=== PATIENT | female | born 1945 | race Caucasian/White ===

== ENCOUNTER 2018-06-03 15:21 | Inpatient (IN) ==
[2018-06-03] MEDS ORDERED: Gadobutrol PF 7.5 MMOL/7.5 ML Vial (for RAD) IV.SIG ONE (15:22)
[2018-06-03] MEDS ORDERED: Sod Chloride 0.9% Inj 1,000 ML IV.SIG SCH ×2 (16:00→17:30)
--- NOTE | 2018-06-03 16:21 | XR ---
EXAM DATE: 06/03/2018 4:15 PM EST AGE/SEX: 73 years / Female INDICATIONS: Left hip pain post fall from bed. CLINICAL DATA: This is the patient's initial encounter. Patient reports that signs and symptoms have been present for 1 day and indicates a pain score of 10/10. MEDICAL/SURGICAL HISTORY: None. None. COMPARISON: No prior exams available for comparison. FINDINGS: Bony structures are intact and in normal alignment. Joints are intact without dislocation or signifi cant arthropathy. Osseous density is normal. Soft tissues are unremarkable. No radiopaque foreign bodies seen. CONCLUSION: No acute fracture or joint dislocation. Electronically signed by: Ja Becerra MD Board Certified Radiologist 06/03/2018 4:20 PM EST
[2018-06-03 16:52] LABS: Baso % (Auto) 0.2 % (0.0-2.0); Eos # (Auto) 0.3 th/mm3 (0.0-0.4); Eos % (Auto) 4.5 % (0.0-4.0); Hematocrit 30.5 % (35.0-46.0); Hemoglobin 10.8 gm/dL (11.6-15.3); Lymph # (Auto) 0.9 th/mm3 (1.0-4.8); Lymph % (Auto) 14.6 % (9.0-44.0); Mean Corpuscular HGB Conc 35.6 % (32.0-36.0); Mean Corpuscular Hemoglobin 32.6 pg (27.0-34.0); Mean Corpuscular Volume 91.6 fL (80.0-100.0); Mean Platelet Volume 8.6 fL (7.0-11.0); Mono # (Auto) 0.3 th/mm3 (0.0-0.9); Mono % (Auto) 4.9 % (0.0-8.0); Neut # (Auto) 4.5 th/mm3 (1.8-7.7); Neut % (Auto) 75.8 % (16.0-70.0); Platelet Count 136 th/mm3 (150-450); Red Blood Count 3.33 mil/mm3 (4.00-5.30); Red Cell Distribution Width 18.8 % (11.6-17.2); White Blood Count 5.9 th/mm3 (4.0-11.0)
[2018-06-03 17:17] LABS: Albumin 3.5 g/dL (3.4-5.0); Anion Gap 10 meq/L (5-15); Aspartate Aminotransferase 20 U/L (15-37); Blood Urea Nitrogen 17 mg/dL (7-18); Calcium 8.9 mg/dL (8.5-10.1); Chloride 100 meq/L (98-107); Glomerular Filtration Rate 41 mL/min (>89); Glucose,Random 112 mg/dL (74-106); Potassium 3.4 meq/L (3.5-5.1); Sodium 136 meq/L (136-145)
--- NOTE | 2018-06-03 17:18 | CT ---
EXAM DATE: 06/03/2018 5:11 PM EST AGE/SEX: 73 years / Female INDICATIONS: Multiple falls CLINICAL DATA: This is the patient's initial encounter. Patient reports that signs and symptoms have been present for 1 day and indicates a pain score of 4/10. MEDICAL/SURGICAL HISTORY: Hypertension. Carcinoma, breast. Carcinoma, bone. stomach cancer None . RADIATION DOSE: 56.35 CTDI (mGy) COMPARISON: No prior exams available for comparison. TECHNIQUE: CT of the head without contrast. Using automated exposure control and adjustment of the mA and/or kV according to patient size, radiation dose was kept as low as reasonably achievable to ob tain optimal diagnostic quality images. DICOM format image data is available electronically for revi ew and comparison. FINDINGS: Cerebrum: The ventricles are normal for age. There is bilateral cortical atrophy. No evidence of mid line shift, mass lesion, hemorrhage or acute infarction. No extraaxial fluid collections are seen. T here is a focal area of decreased density high along the right cerebral vertex measuring approximatel y 2 cm. This could be an old infarct. There are no prior studies for comparison. Chronic bilateral wh ite matter changes are demonstrated. Posterior Fossa: The cerebellum and brainstem are intact. The 4th ventricle is midline. The cerebe llopontine angle is unremarkable. Extracranial: The visualized portion of the orbits is intact. Skull: The calvaria is intact. No evidence of skull fracture. There are some scattered areas of scl erosis characteristic for bony metastatic disease. CONCLUSION: 1. No focal or acute intracranial hemorrhage. 2. Bilateral cortical atrophy and chronic white matter changes. 3. 2 cm area of low density high along the right cerebral vertex. Given patient's history of breast carcinoma with bony metastatic disease, a metastatic deposit is a possibility versus subacute infarc t. Therefore, recommend MRI of the brain with and without contrast for further evaluation. 4. Bony metastatic disease. . Electronically signed by: Ja Becerra MD Board Certified Radiologist 06/03/2018 5:16 PM EST
[2018-06-03 17:19] LABS: Alanine Aminotransferase 14 U/L (10-53)
[2018-06-03 17:20] LABS: Alkaline Phosphatase 106 U/L (45-117); Total Protein 6.9 g/dL (6.4-8.2)
--- NOTE | 2018-06-03 18:19 | ED ---
HPI General Chief Complaint: Fall Stated Complaint: fall Time Seen by Provider: 06/03/18 15:30 History of Present Illness HPI Narrative: This is a 73-year-old female with history of metastatic breast cancer to the bone, who presents today with complaints of multiple falls. Patient apparently has been having multiple falls over the last several days to weeks. She was recently started on a new chemo therapy drug and replaced the symptoms to when she started this medication. Patient states she was seen at a hospital yesterday where they checked a urine specimen and a fingerstick. She states that they did not do any blood work. She cannot recall which hospital it was. She is a poor historian and cannot tell me much other than she is receiving radiation oncology as well as IV blood oncology. She denies any headache. She does have some bruising to her left lateral neck and shoulder from a fall several days ago. There are no other complaints at the time of examination. Related Data Home Medications Medication Instructions Recorded Confirmed lorazepam [Ativan] 0.5 mg PO DAILY 03/20/18 06/03/18 simvastatin 40 mg PO QPM 03/20/18 06/03/18 abemaciclib [Verzenio] 150 mg PO BID 05/30/18 06/03/18 metoprolol tartrate 25 mg PO DAILY 05/30/18 06/03/18 letrozole 2.5 mg PO DAILY 06/03/18 06/03/18 Previous Rx's Medication Instructions Recorded aspirin 325 mg PO DAILY #30 tab 06/10/18 atorvastatin 40 mg PO QPM #30 tab 06/10/18 lorazepam 0.5 mg PO PRN #3 tab 06/10/18 Allergies Allergy/AdvReac Type Severity Reaction Status Date / Time No Known Allergies Allergy Verified 06/03/18 15:35 Review of Systems ROS: all other systems reviewed are negative Constitutional Reports system reviewed and no additional complaints, except as docu Eyes Reports system reviewed and no additional complaints, except as docu ENT Reports system reviewed and no additional complaints, except as docu Cardiovascular Reports system reviewed and no additional complaints, except as docu, Denies chest pain and Denies palpitations Respiratory Denies chest congestion, Denies cough and Denies dyspnea Gastrointestinal Denies abdominal pain, Denies nausea and Denies vomiting Genitourinary Reports system reviewed and no additional complaints, except as docu Musculoskeletal Reports back pain (Chronic with bony metastatic lesions) and Reports other ( Left hip pain from fall today.) Neurologic Denies confusion, Reports dizziness, Reports frequent falls, Denies headache(s) , Denies lack of coordination, Denies focal weakness, Denies paresthesias and Denies weakness PMFSH Family History Family History Father Diabetes mellitus Social History Social History Substance History: No History of Abuse Second Hand Smoke Exposure: No Smoking Status: Former smoker Tobacco Type: Cigarettes How Often Do You Have a Drink Containing Alcohol: Never Immunization History Tetanus Immunization: Unsure Exam Narrative Exam Narrative: GENERAL: Well-developed well-nourished female in no acute respiratory distress. SKIN: Focused skin assessment warm/dry. HEAD: Atraumatic. Normocephalic. EYES: No scleral icterus. No injection or drainage. ENT: No nasal bleeding or discharge. Mucous membranes pink and slightly dry. NECK: Trachea midline. Supple. There is a bruise on her left lateral neck. She relates this was from a fall several days ago. CARDIOVASCULAR: Regular rate and rhythm. No murmur appreciated. RESPIRATORY: No accessory muscle use. Clear to auscultation. Breath sounds equal bilaterally. GASTROINTESTINAL: Abdomen soft, non-tender, nondistended. Hepatic and splenic margins not palpable. MUSCULOSKELETAL: No obvious deformities. Bruising to the left shoulder and left lateral neck. Patient also has tenderness in her left lateral hip. She is able to flex her hip without difficulty. There is no pain with rocking. NEUROLOGICAL: Awake and alert. No obvious cranial nerve deficits. Motor grossly within normal limits. Normal speech. Course Initial Documented Vital Signs Temperature 98.1 F 06/03/18 15:27 Pulse Rate 87 06/03/18 15:27 Respiratory Rate 22 06/03/18 15:27 Blood Pressure 130/58 L 06/03/18 15:27 Pulse Oximetry 100 06/03/18 15:27 Last Documented Vital Signs Temperature 98.5 F 06/10/18 19:00 Pulse Rate 66 06/10/18 23:00 Respiratory Rate 20 06/10/18 23:00 Blood Pressure 160/73 H 06/10/18 19:00 Pulse Oximetry 96 06/10/18 20:00 Sign Out Sign Out Data: Patient Sign Out occurred on 06/03/18 at 19:16. Patient's care was discussed, and care was transferred from Tunde Pena MD to Nikky Sales. Sign Out Comment: 73 old female with history of metastatic breast cancer to the bone, presents here with multiple falls. Patient has a suspicious lesion on her head CT. An MRI with and without contrast was ordered to rule out metastatic lesion. Case was signed out to Dr. Sales. I anticipate the patient will be admitted. There is a high probability that this is a metastatic lesion. Last updated by Tunde Pena MD at 06/03/18 19:15 Post-Handoff Eval: 73-year-old female came to the emergency room with history of frequent falls in past couple days. Patient was seen by the previous ER physician. Please refer to his history and physical for further details. In the workup the CAT scan showed a suspicious lesion in the brain. An MRI was requested by the radiologist. Patient is getting the MRI done currently and awaiting for the results. Dr. Pena strongly felt that patient should be admitted because of her debilitating condition and frequent falls. I discussed this with the daughter as well as the patient and they agree. Patient is currently on chemotherapy under Dr. Schmitz's supervision. Patient thinks that the medicine is not helping her. Case was discussed with the hospitalist for admission. 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 The patient did appear to be volume depleted and was given IV fluid times [address] scan of the brain showed questionable infarct versus metastatic lesion. MRI is pending at this time. The patient will be signed out to the physician replacement at change of shift. I anticipate the patient will be needed to be admitted. Medical Screen Exam Complete: Yes Emergency Medical Condition: Yes Differential Diagnosis Differential Diagnosis: Dehydration versus anemia versus hip fracture versus intracranial injury Lab Data Result diagrams: 06/09/18 04:28 06/09/18 04:28 Lab Results 06/03/18 06/03/18 06/03/18 Range/Units 16:19 16:19 23:59 WBC 5.9 (4.0-11.0) th/mm3 RBC 3.33 L (4.00-5.30) mil/mm3 Hgb 10.8 L (11.6-15.3) gm/dL Hct 30.5 L (35.0-46.0) % MCV 91.6 (80.0-100.0) fL MCH 32.6 (27.0-34.0) pg MCHC 35.6 (32.0-36.0) % RDW 18.8 H (11.6-17.2) % Plt Count 136 L (150-450) th/mm3 MPV 8.6 (7.0-11.0) fL Prelim Diff (Auto) Neut % (Auto) 75.8 H (16.0-70.0) % Lymph % (Auto) 14.6 (9.0-44.0) % [place] % (Auto) 4.9 (0.0-8.0) % Eos % (Auto) 4.5 H (0.0-4.0) % Baso % (Auto) 0.2 (0.0-2.0) % Neut # (Auto) 4.5 (1.8-7.7) th/mm3 Lymph # (Auto) 0.9 L (1.0-4.8) th/mm3 [place] # (Auto) 0.3 (0.0-0.9) th/mm3 Eos # (Auto) 0.3 (0.0-0.4) th/mm3 Baso # (Auto) 0.0 (0.0-0.2) th/mm3 WBC Differential . Diff Scan Differential Comment Auto diff final Platelet Estimate (Normal) Platelet Morphology (Normal) Ovalocytes (None) ESR (0-30) mm/hr PT (9.8-11.6) sec INR Ratio Sodium 136 (136-145) meq/L Potassium 3.4 L (3.5-5.1) meq/L Chloride 100 (98-107) meq/L Carbon Dioxide 26.0 (21.0-32.0) meq/L Anion Gap 10 (5-15) meq/L BUN 17 (7-18) mg/dL Creatinine 1.28 H (0.50-1.00) mg/dL Estimated GFR 41 L (>89) mL/min POC Glucose 100 (68-110) mg/dl Random Glucose 112 H (74-106) mg/dL Hemoglobin A1c (4.3-6.0) % Calcium 8.9 (8.5-10.1) mg/dL Phosphorus (2.5-4.9) mg/dL Magnesium (1.5-2.5) mg/dL Total Bilirubin 0.5 (0.2-1.0) mg/dL AST 20 (15-37) U/L ALT 14 (10-53) U/L Alkaline Phosphatase 106 (45-117) U/L Total Creatine Kinase (26-192) U/L Troponin I (0.02-0.05) ng/mL Total Protein 6.9 (6.4-8.2) g/dL Albumin 3.5 (3.4-5.0) g/dL Triglycerides (42-150) mg/dL Cholesterol (120-200) mg/dL LDL Cholesterol, Calc (0-99) mg/dL HDL Cholesterol (40.0-60.0) mg/dL Cholesterol/HDL Ratio Ratio Vitamin B12 (193-986) pg/mL TSH (0.358-3.740) uIU/mL Free T4 (0.76-1.46) ng/dL Blood Type Blood Type Recheck Antibody Screen 06/04/18 06/04/18 06/04/18 Range/Units 06:38 06:38 06:38 WBC (4.0-11.0) th/mm3 RBC (4.00-5.30) mil/mm3 Hgb (11.6-15.3) gm/dL Hct (35.0-46.0) % MCV (80.0-100.0) fL MCH (27.0-34.0) pg MCHC (32.0-36.0) % RDW (11.6-17.2) % Plt Count (150-450) th/mm3 MPV (7.0-11.0) fL Prelim Diff (Auto) Neut % (Auto) (16.0-70.0) % Lymph % (Auto) (9.0-44.0) % [place] % (Auto) (0.0-8.0) % Eos % (Auto) (0.0-4.0) % Baso % (Auto) (0.0-2.0) % Neut # (Auto) (1.8-7.7) th/mm3 Lymph # (Auto) (1.0-4.8) th/mm3 [place] # (Auto) (0.0-0.9) th/mm3 Eos # (Auto) (0.0-0.4) th/mm3 Baso # (Auto) (0.0-0.2) th/mm3 WBC Differential Diff Scan Differential Comment Platelet Estimate (Normal) Platelet Morphology (Normal) Ovalocytes (None) ESR (0-30) mm/hr PT (9.8-11.6) sec INR Ratio Sodium 139 (136-145) meq/L Potassium 4.0 (3.5-5.1) meq/L Chloride 107 (98-107) meq/L Carbon Dioxide 24.4 (21.0-32.0) meq/L Anion Gap 8 (5-15) meq/L BUN 11 (7-18) mg/dL Creatinine 0.90 (0.50-1.00) mg/dL Estimated GFR 61 L (>89) mL/min POC Glucose (68-110) mg/dl Random Glucose 90 (74-106) mg/dL Hemoglobin A1c 5.4 (4.3-6.0) % Calcium 8.4 L (8.5-10.1) mg/dL Phosphorus (2.5-4.9) mg/dL Magnesium (1.5-2.5) mg/dL Total Bilirubin (0.2-1.0) mg/dL AST (15-37) U/L ALT (10-53) U/L Alkaline Phosphatase (45-117) U/L Total Creatine Kinase (26-192) U/L Troponin I (0.02-0.05) ng/mL Total Protein (6.4-8.2) g/dL Albumin (3.4-5.0) g/dL Triglycerides 71 (42-150) mg/dL Cholesterol 140 (120-200) mg/dL LDL Cholesterol, Calc 64 (0-99) mg/dL HDL Cholesterol 62.2 H (40.0-60.0) mg/dL Cholesterol/HDL Ratio 2.25 Ratio Vitamin B12 167 L (193-986) pg/mL TSH 0.322 L (0.358-3.740) uIU/mL Free T4 1.01 (0.76-1.46) ng/dL Blood Type Blood Type Recheck Antibody Screen 06/04/18 06/05/18 06/07/18 Range/Units 09:05 05:47 12:07 WBC (4.0-11.0) th/mm3 RBC (4.00-5.30) mil/mm3 Hgb (11.6-15.3) gm/dL Hct (35.0-46.0) % MCV (80.0-100.0) fL MCH (27.0-34.0) pg MCHC (32.0-36.0) % RDW (11.6-17.2) % Plt Count (150-450) th/mm3 MPV (7.0-11.0) fL Prelim Diff (Auto) Neut % (Auto) (16.0-70.0) % Lymph % (Auto) (9.0-44.0) % [place] % (Auto) (0.0-8.0) % Eos % (Auto) (0.0-4.0) % Baso % (Auto) (0.0-2.0) % Neut # (Auto) (1.8-7.7) th/mm3 Lymph # (Auto) (1.0-4.8) th/mm3 [place] # (Auto) (0.0-0.9) th/mm3 Eos # (Auto) (0.0-0.4) th/mm3 Baso # (Auto) (0.0-0.2) th/mm3 WBC Differential Diff Scan Differential Comment Platelet Estimate (Normal) Platelet Morphology (Normal) Ovalocytes (None) ESR 45 H (0-30) mm/hr PT (9.8-11.6) sec INR Ratio Sodium (136-145) meq/L Potassium (3.5-5.1) meq/L Chloride (98-107) meq/L Carbon Dioxide (21.0-32.0) meq/L Anion Gap (5-15) meq/L BUN (7-18) mg/dL Creatinine (0.50-1.00) mg/dL Estimated GFR (>89) mL/min POC Glucose (68-110) mg/dl Random Glucose (74-106) mg/dL Hemoglobin A1c (4.3-6.0) % Calcium (8.5-10.1) mg/dL Phosphorus (2.5-4.9) mg/dL Magnesium (1.5-2.5) mg/dL Total Bilirubin (0.2-1.0) mg/dL AST (15-37) U/L ALT (10-53) U/L Alkaline Phosphatase (45-117) U/L Total Creatine Kinase 107 (26-192) U/L Troponin I Less than 0.02 L (0.02-0.05) ng/mL Total Protein (6.4-8.2) g/dL Albumin (3.4-5.0) g/dL Triglycerides (42-150) mg/dL Cholesterol (120-200) mg/dL LDL Cholesterol, Calc (0-99) mg/dL HDL Cholesterol (40.0-60.0) mg/dL Cholesterol/HDL Ratio Ratio Vitamin B12 (193-986) pg/mL TSH (0.358-3.740) uIU/mL Free T4 (0.76-1.46) ng/dL Blood Type A Positive Blood Type Recheck Required Antibody Screen Negative 06/08/18 06/08/18 06/08/18 Range/Units 03:00 03:00 03:00 WBC 3.6 L (4.0-11.0) th/mm3 RBC 3.05 L (4.00-5.30) mil/mm3 Hgb 9.6 L (11.6-15.3) gm/dL Hct 27.6 L (35.0-46.0) % MCV 90.7 (80.0-100.0) fL MCH 31.6 (27.0-34.0) pg MCHC 34.9 (32.0-36.0) % RDW 18.5 H (11.6-17.2) % Plt Count 136 L (150-450) th/mm3 MPV 7.9 (7.0-11.0) fL Prelim Diff (Auto) Neut % (Auto) 63.4 (16.0-70.0) % Lymph % (Auto) 21.4 (9.0-44.0) % [place] % (Auto) 8.2 H (0.0-8.0) % Eos % (Auto) 5.7 H (0.0-4.0) % Baso % (Auto) 1.3 (0.0-2.0) % Neut # (Auto) 2.3 (1.8-7.7) th/mm3 Lymph # (Auto) 0.8 L (1.0-4.8) th/mm3 [place] # (Auto) 0.3 (0.0-0.9) th/mm3 Eos # (Auto) 0.2 (0.0-0.4) th/mm3 Baso # (Auto) 0.0 (0.0-0.2) th/mm3 WBC Differential . Diff Scan Differential Comment Auto diff final Platelet Estimate (Normal) Platelet Morphology (Normal) Ovalocytes (None) ESR (0-30) mm/hr PT 10.3 (9.8-11.6) sec INR 1.0 Ratio Sodium 139 (136-145) meq/L Potassium 3.2 L (3.5-5.1) meq/L Chloride 104 (98-107) meq/L Carbon Dioxide 28.1 (21.0-32.0) meq/L Anion Gap 7 (5-15) meq/L BUN 6 L (7-18) mg/dL Creatinine 0.92 (0.50-1.00) mg/dL Estimated GFR 60 L (>89) mL/min POC Glucose (68-110) mg/dl Random Glucose 89 (74-106) mg/dL Hemoglobin A1c (4.3-6.0) % Calcium 8.5 (8.5-10.1) mg/dL Phosphorus (2.5-4.9) mg/dL Magnesium (1.5-2.5) mg/dL Total Bilirubin 0.5 (0.2-1.0) mg/dL AST 14 L (15-37) U/L ALT 12 (10-53) U/L Alkaline Phosphatase 97 (45-117) U/L Total Creatine Kinase (26-192) U/L Troponin I (0.02-0.05) ng/mL Total Protein 6.4 (6.4-8.2) g/dL Albumin 3.2 L (3.4-5.0) g/dL Triglycerides (42-150) mg/dL Cholesterol (120-200) mg/dL LDL Cholesterol, Calc (0-99) mg/dL HDL Cholesterol (40.0-60.0) mg/dL Cholesterol/HDL Ratio Ratio Vitamin B12 (193-986) pg/mL TSH (0.358-3.740) uIU/mL Free T4 (0.76-1.46) ng/dL Blood Type Blood Type Recheck Antibody Screen 06/08/18 06/09/18 06/09/18 Range/Units 11:46 04:28 04:28 WBC 4.2 (4.0-11.0) th/mm3 RBC 2.50 L (4.00-5.30) mil/mm3 Hgb 8.2 L (11.6-15.3) gm/dL Hct 22.5 L (35.0-46.0) % MCV 90.1 (80.0-100.0) fL MCH 32.7 (27.0-34.0) pg MCHC 36.3 H (32.0-36.0) % RDW 18.9 H (11.6-17.2) % Plt Count 106 L (150-450) th/mm3 MPV 7.9 (7.0-11.0) fL Prelim Diff (Auto) Slide review pending Neut % (Auto) 78.4 H (16.0-70.0) % Lymph % (Auto) 13.0 (9.0-44.0) % [place] % (Auto) 7.7 (0.0-8.0) % Eos % (Auto) 0.8 (0.0-4.0) % Baso % (Auto) 0.1 (0.0-2.0) % Neut # (Auto) 3.3 (1.8-7.7) th/mm3 Lymph # (Auto) 0.6 L (1.0-4.8) th/mm3 [place] # (Auto) 0.3 (0.0-0.9) th/mm3 Eos # (Auto) 0.0 (0.0-0.4) th/mm3 Baso # (Auto) 0.0 (0.0-0.2) th/mm3 WBC Differential . Diff Scan Auto diff confirmed Differential Comment . Platelet Estimate Low L (Normal) Platelet Morphology Normal (Normal) Ovalocytes 1+ H (None) ESR (0-30) mm/hr PT (9.8-11.6) sec INR Ratio Sodium 134 L (136-145) meq/L Potassium 4.1 D (3.5-5.1) meq/L Chloride 102 (98-107) meq/L Carbon Dioxide 24.7 (21.0-32.0) meq/L Anion Gap 7 (5-15) meq/L BUN 9 (7-18) mg/dL Creatinine 0.76 (0.50-1.00) mg/dL Estimated GFR 74 L (>89) mL/min POC Glucose 140 H (68-110) mg/dl Random Glucose 121 H (74-106) mg/dL Hemoglobin A1c (4.3-6.0) % Calcium 7.6 L D (8.5-10.1) mg/dL Phosphorus 2.8 (2.5-4.9) mg/dL Magnesium 2.2 (1.5-2.5) mg/dL Total Bilirubin (0.2-1.0) mg/dL AST (15-37) U/L ALT (10-53) U/L Alkaline Phosphatase (45-117) U/L Total Creatine Kinase (26-192) U/L Troponin I (0.02-0.05) ng/mL Total Protein (6.4-8.2) g/dL Albumin (3.4-5.0) g/dL Triglycerides (42-150) mg/dL Cholesterol (120-200) mg/dL LDL Cholesterol, Calc (0-99) mg/dL HDL Cholesterol (40.0-60.0) mg/dL Cholesterol/HDL Ratio Ratio Vitamin B12 (193-986) pg/mL TSH (0.358-3.740) uIU/mL Free T4 (0.76-1.46) ng/dL Blood Type Blood Type Recheck Antibody Screen Imaging Data Radiologist's impression: Carotid Doppler Study 06/03/18 00:00 CONCLUSION: 1. Right Internal Carotid Artery: Findings indicate near occlusion of the proximal internal carotid artery and possible complete occlusion of the mid and distal internal carotid artery. 2. Left Internal Carotid Artery: Findings indicate 50-69% stenosis. Head CT 06/03/18 15:49 CONCLUSION: 1. No focal or acute intracranial hemorrhage. 2. Bilateral cortical atrophy and chronic white matter changes. 3. 2 cm area of low density high along the right cerebral vertex. Given patient's history of breast carcinoma with bony metastatic disease, a metastatic deposit is a possibility versus subacute infarct. Therefore, recommend MRI of the brain with and without contrast for further evaluation. 4. Bony metastatic disease. . Hip X-Ray 06/03/18 15:49 CONCLUSION: No acute fracture or joint dislocation. Head MRI 06/03/18 17:31 CONCLUSION: 1. The area of abnormality on the recent CT scan correlates to an area of acute to subacute nonhemorrhagic infarction involving the right parietal lobe. 2. Small metastatic lesions involving the calvarium. 3. No MRI evidence to suggest metastatic disease to the brain parenchyma. Head CTA 06/04/18 00:00 CONCLUSION: 1. Unremarkable CTA of the brain. Neck CTA 06/04/18 00:00 CONCLUSION: 1. "String" sign is noted within the right proximal internal carotid artery indicating critical greater than 90% stenosis. Extensive calcified atherosclerotic plaque is also noted distal to the critical stenosis. 2. Greater than 70% stenosis involving the proximal left internal carotid artery secondary to extensive calcified atherosclerotic plaque formation. Cervical Spine MRI 06/04/18 07:52 CONCLUSION: Mild disc protrusions at multiple levels, none producing significant anatomic compromise at present. Lumbar Spine MRI 06/04/18 07:52 CONCLUSION: Mild disc disease in the lower lumbar spine. No significant anatomic compromise at present. Thoracic Spine MRI 06/04/18 07:52 CONCLUSION: 1. There is evidence of focal bony metastatic deposits in the body of T11 and T12. This correlates with patient's previous PET/CT of 02/02/2018. 2. No compression fracture injuries are demonstrated. 3. There are mild degenerative type changes also noted involving the thoracic spine. Head MRA 06/04/18 19:52 CONCLUSION: No significant stenosis or occlusion of the intracerebral arteries. Scattered mild stenoses are noted throughout the bilateral middle and posterior cerebral arteries. Discharge Plan Discharge Disposition Patient Disposition: ED Admit(ED Internal Use Only) Discharge Condition Condition: Stable Discharge Order Discharge Orders: Discharge Order (Routine); Ordered 06/10/18 Ordered By: Yovanny Cohen Vascular Surgery Clear for Discharge (Routine); Ordered 06/09/18 Ordered By: Pawan Alexis ED Use Only Admit Order (Routine); Ordered 06/03/18 Ordered By: Nikky Sales Physicians Team ED Provider: Nikky Sales Primary Care Provider: UNKNOWN, Attending Provider: Yovanny Cohen Other Providers: Chidi Clifton ; Tiana Guzman ; Anamika Krishnamurthy ; Joseph Ruiz ; Gaurav Escobar ; Edwin Crockett ; Bishnu,Yonny Status ED Status: Left Department Discharge Information Discharge Date/Time: 06/03/18 21:24
--- NOTE | 2018-06-03 19:29 | MR ---
EXAM DATE: 06/03/2018 7:20 PM EST AGE/SEX: 73 years / Female INDICATIONS: Metastatic disease. Frequent falling CLINICAL DATA: This is the patient's initial encounter. Patient reports that signs and symptoms have been present for 1 day and indicates a pain score of 0/10. MEDICAL/SURGICAL HISTORY: . Bone, Breast, Stomach Ca, HTN . Lumpectomy, Gallbladder, Cataracts COMPARISON: [facility] – [place], [place] HEAD W/O CONTRAST, 06/03/2018.. . TECHNIQUE: Multiplanar, multisequence examination of the brain was performed without and with 7.5 ml Gadavist (gadobutrol) contrast as a single exam dose. FINDINGS: Cerebrum: There is decreased attenuation involving the medial right parietal lobe high near the vert ex adjacent to the falx. This area correlates to area of decreased density on the recent CT. The gyri are edematous and there is restricted diffusion in this area. No abnormal enhancement appreciated. A trophy. The ventricles are normal for age. No evidence of midline shift, mass lesion, hemorrhage or acute infarction. No extraaxial fluid collections are seen. The pituitary gland and suprasellar cis tern are normal in configuration. White Matter: No significant signal abnormalities are seen in the white matter. Posterior Fossa: The cerebellum and brainstem are intact. The 4th ventricle is midline. The cerebel lopontine angle is unremarkable. The cerebellar tonsils are normal in position. Diffusion Imaging: A focal area of restricted diffusion with associated decrease signal on ADC map i nvolving the right parietal lobe as detailed above.. Extracranial: Metastatic lesions are seen involving the calvarium. The largest lesion involves the r ight frontal bone and measures 1.4 cm. The visualized portions of the orbits and paranasal sinuses ar e unremarkable. Post Contrast: No abnormal areas of parenchymal or dural enhancement. No evidence of blood-brain ba rrier breakdown. CONCLUSION: 1. The area of abnormality on the recent CT scan correlates to an area of acute to subacute nonhemor rhagic infarction involving the right parietal lobe. 2. Small metastatic lesions involving the calvarium. 3. No MRI evidence to suggest metastatic disease to the brain parenchyma. Electronically signed by: Capo Santos MD Board Certified Radiologist 06/03/2018 7:28 PM EST
[2018-06-03] MEDS ORDERED: Insulin NovoLOG Aspart Correctional Sugar Inj SQ PRN (19:47)
[2018-06-03] MEDS ORDERED: Dextrose 50% in Water 50 ML Vial IV.PUSH PRN (19:47)
--- NOTE | 2018-06-03 20:56 | P.HP ---
History of Present Illness Service: [facility] Primary Care Physician: UNKNOWN History of Present Illness: 73-year-old female with a past medical history significant for metastatic breast cancer currently undergoing chemotherapy and radiation, hypertension, hyperlipidemia and anxiety presents to the emergency department for the evaluation of multiple falls. The patient's daughter is bedside and states that her mother has been falling for approximately 5 days. When she falls she is unable to get up on her own. She has been having left lower extremity weakness since Friday however believes this is secondary to left buttock pain that she suffered from 1 of her falls. The patient has not been altered or confused in anyway, no facial droops. No focal neurologic deficits. No slurred speech. The patient denies any fevers or chills. No chest pain or short of. No abdominal pain. Positive nausea that is baseline secondary to chemotherapy. No emesis. Inpatient Certification: I certify that the inpatient services were ordered in accordance with Medicare regulations governing the order. This includes certification that hospital inpatient services are reasonable and necessary and in the case of services not specified as inpatient-only under 42 CFR 419.22(n), that they are appropriately provided as inpatient services in accordance to with the 2-midnight benchmark under 43 CFR 412.3(e) Estimated Total Length of Stay (Days): 5 Plans for Post Hospital Care: Not yet determined Review of Systems All other systems reviewed negative except as stated in HPI [facility] - History History Provided By: Patient - Medical History Medical History: Medical History (Last Reviewed 06/03/18 @ 20:47 by Kaylyn Ramirez MD) Anxiety Bone cancer Breast cancer [place] Hypercholesteremia Hypertension Stomach cancer - Surgical History Surgical History: Surgical History (Last Reviewed 06/03/18 @ 20:47 by Kaylyn Ramirez MD) H/O lumpectomy History of cholecystectomy - Family History Family History: Family History (Last Updated 06/03/18 @ 20:47 by Kaylyn Ramirez MD) Other Diabetes mellitus - Tobacco History Second Hand Smoke Exposure: No Smoking Status: Former smoker Tobacco Type: Cigarettes - Alcohol History How Often Do You Have a Drink Containing Alcohol: Never - Substance Use History Substance History: No History of Abuse - Travel History Recent Travel in the [place] Within the Last 8 Weeks: No Recent Travel Out of the Country Within the Last 8 Weeks: No - Immunization History Tetanus Immunization: Unsure Medications and Allergies Active Medications: Active Medications Aspirin (Aspirin) 325 mg PO DAILY [facility] Dextrose (D50w Vial) 50 ml IV.PUSH UNSCH PRN PRN Reason: per Hypoglycemic Protocol Glucagon (Glucagon Inj) 1 mg OTHER UNSCH PRN PRN Reason: per Hypoglycemic Protocol Insulin Aspart (Novolog Insulin Correctional Sugar Inj) 0 unit SQ ACHS PRN; Protocol PRN Reason: Per Protocol Allergies Allergy/AdvReac Type Severity Reaction Status Date / Time No Known Allergies Allergy Verified 06/03/18 15:35 Home Medications Medication Instructions Recorded Confirmed Type lorazepam [Ativan] 0.5 mg PO DAILY 03/20/18 06/03/18 History simvastatin 40 mg PO QPM 03/20/18 06/03/18 History abemaciclib [Verzenio] 150 mg PO BID 05/30/18 06/03/18 History metoprolol tartrate 25 mg PO DAILY 05/30/18 06/03/18 History letrozole 2.5 mg PO DAILY 06/03/18 06/03/18 History Exam Vital signs: Vital Signs 06/03/18 15:27 06/03/18 15:30 Temperature 98.1 F Pulse Rate 87 87 Respiratory Rate 22 22 Blood Pressure 130/58 L 130/58 L Pulse Oximetry 100 100 Intake & Output 06/03/18 06/03/18 06/04/18 06:59 18:59 06:59 Intake Total 1999 Balance 1999 Weight 77.111 kg Intake: IV 1999 NS Inj 1,000 ML @ 1000 mls/hr 1999 IV.SIG BOLUS TYLER Rx#:[id number] Narrative: Gen.: No acute distress Head: Normocephalic. Atraumatic. EENT: Pupils equal round and reactive to light. Nose without drainage. Airway intact. Throat without injection. Cardiovascular: Regular rate and rhythm. No murmurs, rubs or gallops. Respiratory: Lungs clear to auscultation bilaterally. No wheezes or rhonchi. Abdomen: Soft, nontender, nondistended. No peritoneal signs. Musculoskeletal: No gross deformities. No edema. Skin: No obvious rashes or erythema. Neuro: Cranial nerves II through XII intact. No facial droop. Alert and oriented x4. Normal speech. Strength 5/5 throughout except left lower extremity with 4/5 strength stemming from left buttock pain. Results - Labs CBC & Chem 7: 06/03/18 16:19 06/03/18 16:19 Labs: Laboratory Results - last 24 hr 06/03/18 06/03/18 16:19 16:19 WBC 5.9 RBC 3.33 L Hgb 10.8 L Hct 30.5 L MCV 91.6 MCH 32.6 MCHC 35.6 RDW 18.8 H Plt Count 136 L MPV 8.6 Neut % (Auto) 75.8 H Lymph % (Auto) 14.6 Snyder % (Auto) 4.9 Eos % (Auto) 4.5 H Baso % (Auto) 0.2 Neut # (Auto) 4.5 Lymph # (Auto) 0.9 L Snyder # (Auto) 0.3 Eos # (Auto) 0.3 Baso # (Auto) 0.0 WBC Differential . Differential Comment Auto diff final Sodium 136 Potassium 3.4 L Chloride 100 Carbon Dioxide 26.0 Anion Gap 10 BUN 17 Creatinine 1.28 H Estimated GFR 41 L Random Glucose 112 H Calcium 8.9 Total Bilirubin 0.5 AST 20 ALT 14 Alkaline Phosphatase 106 Total Protein 6.9 Albumin 3.5 - Imaging Impressions Head CT 06/03/18 15:49 CONCLUSION: 1. No focal or acute intracranial hemorrhage. 2. Bilateral cortical atrophy and chronic white matter changes. 3. 2 cm area of low density high along the right cerebral vertex. Given patient's history of breast carcinoma with bony metastatic disease, a metastatic deposit is a possibility versus subacute infarct. Therefore, recommend MRI of the brain with and without contrast for further evaluation. 4. Bony metastatic disease. . Hip X-Ray 06/03/18 15:49 CONCLUSION: No acute fracture or joint dislocation. Head MRI 06/03/18 17:31 CONCLUSION: 1. The area of abnormality on the recent CT scan correlates to an area of acute to subacute nonhemorrhagic infarction involving the right parietal lobe. 2. Small metastatic lesions involving the calvarium. 3. No MRI evidence to suggest metastatic disease to the brain parenchyma. Caprini VTE Risk Assessment Caprini VTE Risk Assessment: Moderate/High Risk (score >= 2) Caprini Risk Assessment Model: Point Value = 1 Point Value = 2 Point Value = 3 Point Value = 5 Age 41-60 Minor surgery BMI > 25 kg/m2 Swollen legs Varicose veins or History of unexplained or recurrent spontaneous Oral contraceptives or hormone replacement Sepsis (< 1 month) Serious lung disease, including pneumonia (< 1 month) Abnormal pulmonary function Acute myocardial infarction Congestive heart failure (< 1 month) History of inflammatory bowel disease Medical patient at bed rest Age 61-74 Arthroscopic surgery Major open surgery (> 45 min) Laparoscopic surgery (> 45 min) Malignancy Confined to bed (> 72 hours) Immobilizing plaster cast Central venous access Age >= 75 History of VTE Family history of VTE Factor V Leiden Prothrombin [id number] Lupus anticoagulant Anticardiolipin antibodies Elevated serum homocysteine Heparin-induced thrombocytopenia Other congenital or acquired thrombophilia Stroke (< 1 month) Elective arthroplasty Hip, pelvis, or leg fracture Acute spinal cord injury (< 1 month) Prophylaxis Regimen: Total Risk Factor Score Risk Level Prophylaxis Regimen 0-1 Low Early ambulation 2 Moderate Order ONE of the following: *Sequential Compression Device (SCD) *Heparin 5000 units SQ BID 3-4 Higher Order ONE of the following medications: *Heparin 5000 units SQ TID *Enoxaparin/Lovenox 40 mg SQ daily (WT < 150 kg, CrCl > 30 mL/min) *Enoxaparin/Lovenox 30 mg SQ daily (WT < 150 kg, CrCl > 10-29 mL/min) *Enoxaparin/Lovenox 30 mg SQ BID (WT < 150 kg, CrCl > 30 mL/min) AND/OR *Sequential Compression Device (SCD) 5 or more Highest Order ONE of the following medications: *Heparin 5000 units SQ TID (Preferred with Epidurals) *Enoxaparin/Lovenox 40 mg SQ daily (WT < 150 kg, CrCl > 30 mL/min) *Enoxaparin/Lovenox 30 mg SQ daily (WT < 150 kg, CrCl > 10-29 mL/min) *Enoxaparin/Lovenox 30 mg SQ BID (WT < 150 kg, CrCl > 30 mL/min) AND *Sequential Compression Device (SCD) Assessment and Plan - Plan Assessment/plan: 1. Acute CVA Patient with no focal neurologic deficits at this time, reports multiple falls that began on with left lower extremity weakness that began on Friday Head MRI shows an area of acute to subacute nonhemorrhagic infarction involving the right parietal lobe Neurology consulted, appreciate assistance Carotid ultrasound, MRA pending Echo pending 2. Metastatic breast cancer [facility] Patient's oncologist, Dr. Phillips consulted, appreciate assistance 3. Hypertension Holding home metoprolol for permissive hypertension 4. Hyperlipidemia Continue home statin 5. Anxiety Continue Ativan FEN NPO Electrolytes: Monitor and replete as needed, s/p K repletion Holding pharmacologic anticoagulation until cleared by neurology NS at 70 cc/hr
[2018-06-03] MEDS ORDERED: ABEMACICLIB 150 MG PO SCH (21:00)
--- NOTE | 2018-06-03 21:39 | US ---
EXAM DATE: 06/03/2018 9:30 PM EST AGE/SEX: 73 years / Female INDICATIONS: Cerebrovascular accident. CLINICAL DATA: This is the patient's initial encounter. Patient reports that signs and symptoms have been present for 1 day and indicates a pain score of 0/10. MEDICAL/SURGICAL HISTORY: Hypercholesterolemia. Hypertension. Anxiety. Bone cancer. Breast can cer. Cataract. Stomach cancer. Cholecystectomy. Lumpectomy. COMPARISON: [facility] [place], MR HEAD W & W/O CONTRAST, 06/03/2018. [facility] [place], CT HEAD W/O CONTRAST, 06/03/2018. . VELOCITY PARAMETERS: ICA/CCA Ratio: Right 5.0 (prox ICA) , Left 1.4 ICA: Right 416 (prox) cm/sec, Left 168 cm/sec CCA: Right 84 cm/sec, Left 111 cm/sec ECA: Right 376 cm/sec, Left 174 cm/sec Vertebral: Right 176 cm/sec antegrade, Left 93 cm/sec antegrade FINDINGS: Right Carotid: There is severe plaque formation in the region of the carotid bulb with some shadowing . There is an abnormal waveform in the proximal internal carotid artery with prominent negative veloc ity components during systole. No flow is documented in the mid or distal internal carotid artery.. Left Carotid: Moderate arteriosclerotic plaque is visualized. The waveforms are within normal limits . Other: None. CONCLUSION: 1. Right Internal Carotid Artery: Findings indicate near occlusion of the proximal internal carotid artery and possible complete occlusion of the mid and distal internal carotid artery. 2. Left Internal Carotid Artery: Findings indicate 50-69% stenosis. Electronically signed by: Capo Mari MD Board Certified Radiologist 06/03/2018 9:38 PM EST
[2018-06-03] MEDS: Sod Chloride 0.9% Inj 1,000 ML IV.CONT SCH (22:01)
[2018-06-04 07:19] LABS: Calcium 8.4 mg/dL (8.5-10.1); Carbon Dioxide 24.4 meq/L (21.0-32.0)
[2018-06-04 07:22] LABS: Chol/HDL Ratio 2.25 Ratio; HDL Cholesterol 62.2 mg/dL (40.0-60.0)
[2018-06-04] MEDS: LORazepam 0.5 MG Tablet PO SCH (08:16)
[2018-06-04] MEDS: Aspirin 325 MG Tablet PO SCH (08:16)
--- NOTE | 2018-06-04 08:16 | MB ---
cc: Chidi Sagastume MD DATE: 06/04/2018 HISTORY OF PRESENT ILLNESS: A 73-year-old woman, right-handed, with a history of hypertension, hypercholesterolemia, breast cancer about 3 years ago, evidently a met in the right hip, who has had a fall for the last 3 weeks. She denies any chest pain, palpitations, or headache. REVIEW OF SYSTEMS: She denies any history of diabetes; TX; stent; angioplasty; AFib; Coumadin; renal, hepatic or pulmonary disease; thyroid disease; lupus; ulcer; seizure; or stroke. SOCIAL HISTORY: She is not a smoker anymore, not a drinker, lives with her daughter. FAMILY HISTORY: Negative for cancer, seizure, or stroke according to the patient. MEDICATIONS AT HOME: Letrozole, simvastatin, metoprolol, Ativan 0.5 a day, Verzenio. She, as far as I can tell, does not take an aspirin a day. She is on 325 aspirin here. PHYSICAL EXAMINATION: VITAL SIGNS: Sinus rhythm, so far. Afebrile, 79, 97/51 to 120/73. NECK: There are no carotid bruits. HEART: Regular rate and rhythm. I did not detect a murmur. NEUROLOGIC: Pupils are equal. Discs cannot see well. Hearing was diminished bilaterally to finger rub. Visual hudson are full. Extraocular movements intact without nystagmus. Face is symmetric with normal sensation. Tongue was midline. No drift. Normal strength in upper and lower extremities bilaterally except the left lower extremity is weak about a 4-4+/5. Toe was upgoing and left, downgoing in the right. DTRs are trace throughout. Pinprick was intact in all 4 extremities and face bilaterally. There is no tapia sign. She is not ataxic on [id number]. She is a little bit ataxic on [id number] on the left, not on the right. She was alert and oriented to month and year but not the day of the week. A little bit disinhibited. DIAGNOSTIC DATA: MRI shows an acute right anterior cerebral artery in the posterior aspect of its territory. CBC essentially normal. Basic metabolic profile is normal. LFTs normal. LDL cholesterol normal. Hip x-ray negative. Carotid ultrasound near occlusion, possible complete occlusion of the right internal carotid artery, 50%-69% on the left. IMPRESSION: Right anterior cerebral artery infarct, probably from the carotid. We will check a CTA of the head and neck along with a history of cancer an MRI of the spine and echocardiogram. Continue on aspirin. Keep her blood pressure up and check a troponin. I will be following her with you in the hospital. Probably the carotid is the cause of the right anterior cerebral artery infarct. For now, we will keep her head of bed flat. IV hydration, but blood pressure up. MD NILO Harrison/nicolás , 07:55 AM , 08:02 AM
[2018-06-04] MEDS ORDERED: ABEMACICLIB PO SCH (09:00)
--- NOTE | 2018-06-04 09:58 | MR ---
EXAM DATE: 06/04/2018 9:52 AM EST AGE/SEX: 73 years / Female INDICATIONS: Frequent falls. CLINICAL DATA: This is the patient's subsequent encounter. Patient reports that signs and symptoms h ave been present for 2 days and indicates a pain score of 3/10. MEDICAL/SURGICAL HISTORY: Hypertension. Hypercholesterolemia. bone, stomach and breast cancer Cholecystectomy. lumpectomy COMPARISON: [facility] [place], MR HEAD W & W/O CONTRAST, 06/03/2018. [facility] [place], CT HEAD W/O CONTRAST, 06/03/2018. . TECHNIQUE: 3D [id number] MRA was performed. Source images, multiplanar STS MIP, and 3D volum e MIP reconstructions were reviewed. FINDINGS: There is excellent visualization of the major intracranial arteries out to the second-order branch ve ssels. There is no evidence for aneurysm, vessel truncation or significant stenosis, and no evidence for vascular malformation. Scattered mild stenoses are noted throughout the bilateral middle and pos terior cerebral arteries. The right A1 segment is small in caliber compared to the left. CONCLUSION: No significant stenosis or occlusion of the intracerebral arteries. Scattered mild stenoses are noted throughout the bilateral middle and posterior cerebral arteries. Electronically signed by: Gaurav Perez MD Board Certified Radiologist 06/04/2018 9:57 AM EST
[2018-06-04 09:59] LABS: Free T4 (Free Thyroxine) 1.01 ng/dL (0.76-1.46); Thyroid Stimulating Hormone 0.322 uIU/mL (0.358-3.740)
[2018-06-04] MEDS ORDERED: Gadobutrol PF 7.5 MMOL/7.5 ML Vial (for RAD) IV.SIG ONE (10:38)
--- NOTE | 2018-06-04 10:54 | MR ---
EXAM DATE: 06/04/2018 10:45 AM EST AGE/SEX: 73 years / Female INDICATIONS: . Frequent falls. CLINICAL DATA: This is the patient's subsequent encounter. Patient reports that signs and symptoms h ave been present for 2 days and indicates a pain score of 3/10. MEDICAL/SURGICAL HISTORY: Hypercholesterolemia. Hypertension. bone, stomach and breast cancer Cholecystectomy. lumpectomy COMPARISON: [facility] [place], MR THORACIC SPINE W & W/O CON, 06/04/2018. . TECHNIQUE: Multiplanar, multisequence MRI examination of the cervical spine was performed without an d with 7.5 ml Gadavist (gadobutrol) contrast as a single exam dose. FINDINGS: Vertebrae: Normal vertebral body height. Homogeneous marrow signal. Alignment: Normal. Cord: Normal configuration and signal. Post Fossa: The cerebellar tonsils are normal in position. Post Contrast: No abnormal areas of enhancement are seen. C2-C3: The thecal sac has a normal configuration. There is no evidence of disc herniation or spinal canal stenosis. The neural foramina are patent bilaterally. C3-C4: The thecal sac has a normal configuration. There is no evidence of disc herniation or spinal canal stenosis. The neural foramina are patent bilaterally. C4-C5: Mild broad slightly undulating right paracentral disc protrusion slightly indenting ventral t hecal sac. Canal and foramina are satisfactory. C5-C6: Broad undulating dorsal disc protrusion mildly indenting ventral thecal sac. Mild bilateral f oraminal narrowing. C6-C7: Broad mild right paracentral disc protrusion indenting thecal sac with moderate asymmetric ef facement of right lateral recess. Mild foraminal narrowing. C7-T1: No epidural impressions seen. CONCLUSION: Mild disc protrusions at multiple levels, none producing significant anatomic compromise at present. Electronically signed by: Pierre Olivo MD Board Certified Radiologist 06/04/2018 10:53 AM EST
--- NOTE | 2018-06-04 11:00 | MR ---
EXAM DATE: 06/04/2018 10:48 AM EST AGE/SEX: 73 years / Female INDICATIONS: . Frequent falls. CLINICAL DATA: This is the patient's subsequent encounter. Patient reports that signs and symptoms h ave been present for 2 days and indicates a pain score of 3/10. MEDICAL/SURGICAL HISTORY: Hypercholesterolemia. Hypertension. bone, stomach and breast cancer Cholecystectomy. lumpectomy COMPARISON: [facility], PET/CT TUMOR, 02/02/2018. . TECHNIQUE: Multiplanar, multisequence MRI of the thoracic spine was performed without and with 7.5 m l Gadavist (gadobutrol) contrast as a single exam dose. FINDINGS: Vertebrae: Normal vertebral body height. No compression fracture injuries are demonstrated. There ar e some mild degenerative changes throughout the thoracic spine. However, there is a focus of decrease d signal in the body of T11 and T12 which correlates with hypermetabolic sclerotic lesions seen on th e PET/CT from 02/02/2018. This would indicate focus of bony metastatic disease. The rest of the thorac ic vertebral bodies demonstrate normal signal. Alignment: Normal. Cord: Normal position and configuration. Post Contrast: There is some mild enhancement of the sclerotic lesion seen in the body of T11 and T1 2 characteristic of a focus of bony metastatic disease. T1-T2: The thecal sac has a normal diameter. No evidence of disc bulge or protrusion. T2-T3: The thecal sac has a normal diameter. No evidence of disc bulge or protrusion. T3-T4: The thecal sac has a normal diameter. No evidence of disc bulge or protrusion. T4-T5: The thecal sac has a normal diameter. No evidence of disc bulge or protrusion. T5-T6: The thecal sac has a normal diameter. No evidence of disc bulge or protrusion. T6-T7: The thecal sac has a normal diameter. No evidence of disc bulge or protrusion. T7-T8: The thecal sac has a normal diameter. No evidence of disc bulge or protrusion. T8-T9: The thecal sac has a normal diameter. No evidence of disc bulge or protrusion. T9-T10: The thecal sac has a normal diameter. No evidence of disc bulge or protrusion. T10-T11: The thecal sac has a normal diameter. No evidence of disc bulge or protrusion. T11-T12: The thecal sac has a normal diameter. No evidence of disc bulge or protrusion. T12-L1: The thecal sac has a normal diameter. No evidence of disc bulge or protrusion. CONCLUSION: 1. There is evidence of focal bony metastatic deposits in the body of T11 and T12. This correlates w ith patient's previous PET/CT of 02/02/2018. 2. No compression fracture injuries are demonstrated. 3. There are mild degenerative type changes also noted involving the thoracic spine. Electronically signed by: Ja Becerra MD Board Certified Radiologist 06/04/2018 10:58 AM EST
--- NOTE | 2018-06-04 11:01 | MR ---
EXAM DATE: 06/04/2018 10:41 AM EST AGE/SEX: 73 years / Female INDICATIONS: . Frequent falls. CLINICAL DATA: This is the patient's subsequent encounter. Patient reports that signs and symptoms h ave been present for 2 days and indicates a pain score of 3/10. MEDICAL/SURGICAL HISTORY: Hypercholesterolemia. Hypertension. bone, stomach and breast cancer Cholecystectomy. lumpectomy [place] [facility] [place] W & W/O CON, 06/04/2018. . TECHNIQUE: Multiplanar, multisequence MRI examination of the lumbar spine was performed without and with 7.5 ml Gadavist (gadobutrol) contrast as a single exam dose. FINDINGS: The most caudal-appearing lumbar vertebra is numbered as L5. Vertebra: Homogeneous signal. Normal alignment. Conus: Normal level and configuration. Post Contrast: No abnormal areas of contrast enhancement are seen. T12-L1: The thecal sac has a normal diameter. No evidence of disc bulge or protrusion. The neural foramina are patent bilaterally. L1-L2: The thecal sac has a normal diameter. No evidence of disc bulge or protrusion. The neural foramina are patent bilaterally. L2-L3: The thecal sac has a normal diameter. No evidence of disc bulge or protrusion. The neural foramina are patent bilaterally. L3-L4: Slight annular disc bulge. No significant protrusion, canal or foraminal stenosis. L4-L5: Slight annular disc bulge. Minimal broad superimposed dorsal disc protrusion. No significant canal or foraminal compromise. Mild bilateral posterior facet arthropathy. L5-S1: The thecal sac has a normal diameter. No evidence of disc bulge or protrusion. The neural foramina are patent bilaterally. CONCLUSION: Mild disc disease in the lower lumbar spine. No significant anatomic compromise at present. Electronically signed by: Pierre Olivo MD Board Certified Radiologist 06/04/2018 10:59 AM EST
--- NOTE | 2018-06-04 11:17 | P.PN ---
Subjective Interval history: Follow-up acute CVA/frequent falls June 04, 2018-patient seen and examined, denies any shortness of breath, chest pain or dizziness. Denies any weakness to any extremities Physical Exam Vital signs: Vital Signs 06/03/18 15:27 06/03/18 15:30 06/03/18 19:48 Temperature 98.1 F 98.0 F Pulse Rate 87 87 71 Respiratory Rate 22 22 18 Blood Pressure 130/58 L 130/58 L 130/78 Pulse Oximetry 100 100 97 06/03/18 21:37 06/03/18 21:48 06/03/18 23:48 Temperature 98.1 F 98 F Pulse Rate 76 85 79 Respiratory Rate 18 18 Blood Pressure 139/82 97/51 L Pulse Oximetry 98 99 06/04/18 00:11 06/04/18 03:48 06/04/18 07:48 Temperature 98.8 F 98.6 F Pulse Rate 77 81 85 Respiratory Rate 16 16 Blood Pressure 120/73 158/48 H Pulse Oximetry 97 99 Intake & Output 06/03/18 06/04/18 06/04/18 18:59 06:59 18:59 Intake Total 1999 Output Total 400 / 400 Balance 1999 -400 / -400 Weight 77.111 kg 75 kg Intake: IV 1999 NS Inj 1,000 ML @ 1000 mls/hr 1999 IV.SIG BOLUS TYLER Rx#:[id number] Output: Urine 400 / 400 Other: Date of Last Bowel Movement 06/01/18 Narrative: Gen.: No acute distress Head: Normocephalic. Atraumatic. EENT: Pupils equal round and reactive to light. Nose without drainage. Airway intact. Throat without injection. Cardiovascular: Regular rate and rhythm. No murmurs, rubs or gallops. Respiratory: Lungs clear to auscultation bilaterally. No wheezes or rhonchi. Abdomen: Soft, nontender, nondistended. No peritoneal signs. Musculoskeletal: No gross deformities. No edema. Skin: No obvious rashes or erythema. Neuro: Cranial nerves II through XII intact. No facial droop. Alert and oriented x4. Normal speech. Strength 5/5 throughout except left lower extremity with 4/5 strength stemming from left buttock pain. Results - Labs CBC & Chem 7: 06/03/18 16:19 06/04/18 06:38 Laboratory Results - last 24 hr 06/03/18 06/03/18 06/03/18 16:19 16:19 23:59 WBC 5.9 RBC 3.33 L Hgb 10.8 L Hct 30.5 L MCV 91.6 MCH 32.6 MCHC 35.6 RDW 18.8 H Plt Count 136 L MPV 8.6 Neut % (Auto) 75.8 H Lymph % (Auto) 14.6 [place] % (Auto) 4.9 Eos % (Auto) 4.5 H Baso % (Auto) 0.2 Neut # (Auto) 4.5 Lymph # (Auto) 0.9 L [place] # (Auto) 0.3 Eos # (Auto) 0.3 Baso # (Auto) 0.0 WBC Differential . Differential Comment Auto diff final ESR Sodium 136 Potassium 3.4 L Chloride 100 Carbon Dioxide 26.0 Anion Gap 10 BUN 17 Creatinine 1.28 H Estimated GFR 41 L POC Glucose 100 Random Glucose 112 H Calcium 8.9 Total Bilirubin 0.5 AST 20 ALT 14 Alkaline Phosphatase 106 Total Protein 6.9 Albumin 3.5 Triglycerides Cholesterol LDL Cholesterol, Calc HDL Cholesterol Cholesterol/HDL Ratio Vitamin B12 TSH Free T4 06/04/18 06/04/18 06/04/18 06:38 06:38 09:05 WBC RBC Hgb Hct MCV MCH MCHC RDW Plt Count MPV Neut % (Auto) Lymph % (Auto) [place] % (Auto) Eos % (Auto) Baso % (Auto) Neut # (Auto) Lymph # (Auto) [place] # (Auto) Eos # (Auto) Baso # (Auto) WBC Differential Differential Comment ESR 45 H Sodium 139 Potassium 4.0 Chloride 107 Carbon Dioxide 24.4 Anion Gap 8 BUN 11 Creatinine 0.90 Estimated GFR 61 L POC Glucose Random Glucose 90 Calcium 8.4 L Total Bilirubin AST ALT Alkaline Phosphatase Total Protein Albumin Triglycerides 71 Cholesterol 140 LDL Cholesterol, Calc 64 HDL Cholesterol 62.2 H Cholesterol/HDL Ratio 2.25 Vitamin B12 167 L TSH 0.322 L Free T4 1.01 - Imaging Impressions Carotid Doppler Study 06/03/18 00:00 CONCLUSION: 1. Right Internal Carotid Artery: Findings indicate near occlusion of the proximal internal carotid artery and possible complete occlusion of the mid and distal internal carotid artery. 2. Left Internal Carotid Artery: Findings indicate 50-69% stenosis. Head CT 06/03/18 15:49 CONCLUSION: 1. No focal or acute intracranial hemorrhage. 2. Bilateral cortical atrophy and chronic white matter changes. 3. 2 cm area of low density high along the right cerebral vertex. Given patient's history of breast carcinoma with bony metastatic disease, a metastatic deposit is a possibility versus subacute infarct. Therefore, recommend MRI of the brain with and without contrast for further evaluation. 4. Bony metastatic disease. . Hip X-Ray 06/03/18 15:49 CONCLUSION: No acute fracture or joint dislocation. Head MRI 06/03/18 17:31 CONCLUSION: 1. The area of abnormality on the recent CT scan correlates to an area of acute to subacute nonhemorrhagic infarction involving the right parietal lobe. 2. Small metastatic lesions involving the calvarium. 3. No MRI evidence to suggest metastatic disease to the brain parenchyma. Cervical Spine MRI 06/04/18 07:52 CONCLUSION: Mild disc protrusions at multiple levels, none producing significant anatomic compromise at present. Lumbar Spine MRI 06/04/18 07:52 CONCLUSION: Mild disc disease in the lower lumbar spine. No significant anatomic compromise at present. Thoracic Spine MRI 06/04/18 07:52 CONCLUSION: 1. There is evidence of focal bony metastatic deposits in the body of T11 and T12. This correlates with patient's previous PET/CT of 02/02/2018. 2. No compression fracture injuries are demonstrated. 3. There are mild degenerative type changes also noted involving the thoracic spine. Head MRA 06/04/18 19:52 CONCLUSION: No significant stenosis or occlusion of the intracerebral arteries. Scattered mild stenoses are noted throughout the bilateral middle and posterior cerebral arteries. Assessment and Plan - Plan 73-year-old female with Ischemic CVA Treatment per stroke protocol Brain MRI with finding of nonhemorrhagic acute to subacute infarction in right parietal lobe Neck CTA pending Appreciate input from neurology Continue permissive hypertension, aspirin, statin 2D echo, Holter monitoring pending PT/OT to treat and eval Rehabilitation medicine consultation pending Speech therapy pending for swallow eval Hypertension Allow for permissive hypertension History of metastasis breast cancer Oncology consultation pending Imaging studies review DVT prophylaxis: Bilateral SCDs
--- NOTE | 2018-06-04 11:50 | CT ---
EXAM DATE: 06/04/2018 11:45 AM EST AGE/SEX: 73 years / Female INDICATIONS: Atherosclerosis CLINICAL DATA: This is the patient's initial encounter. Patient reports that signs and symptoms have been present for 1 day and indicates a pain score of 0/10. MEDICAL/SURGICAL HISTORY: Carcinoma, breast. Hypertension. None. RADIATION DOSE: 27.31 CTDI (mGy) ; Combined studies COMPARISON: No prior exams available for comparison. TECHNIQUE: Volumetric scanning was performed using a multi-row detector CT scanner during bolus infu vanesa of 82 ml Omnipaque 350 (iohexol) nonionic water-soluble contrast as a cumulative dose for multi ple exams. The data was post processed with a variety of visualization algorithms including full vo lume maximum intensity projection, multi-planar sliding thin slab reformation, curved planar reformat ion, and surface rendering techniques. Using automated exposure control and adjustment of the mA and /or kV according to patient size, radiation dose was kept as low as reasonably achievable to obtain o ptimal diagnostic quality images. DICOM format image data is available electronically for review and comparison. FINDINGS: There is excellent visualization of the major intracranial arteries out to the second-order branch ve ssels. There is no evidence for aneurysm, vessel truncation or stenosis, and no evidence for vascula r malformation. The A1 segment on the right is hypoplastic but patent. CONCLUSION: 1. Unremarkable CTA of the brain. Electronically signed by: Ja Becerra MD Board Certified Radiologist 06/04/2018 11:49 AM EST
--- NOTE | 2018-06-04 12:37 | CT ---
EXAM DATE: 06/04/2018 12:21 PM EST AGE/SEX: 73 years / Female INDICATIONS: Atherosclerosis CLINICAL DATA: This is the patient's initial encounter. Patient reports that signs and symptoms have been present for 1 day and indicates a pain score of 0/10. MEDICAL/SURGICAL HISTORY: Carcinoma, breast. Hypertension. None. RADIATION DOSE: 27.31 CTDI (mGy) ; Combined studies COMPARISON: [facility], MRA HEAD W/O CONTRAST, 06/04/2018. . TECHNIQUE: Volumetric scanning was performed using a multirow detector CT scanner during bolus infus ion of 80 ml Omnipaque 350 (iohexol) nonionic water-soluble contrast as a cumulative dose for multip le exams. The data was postprocessed with a variety of visualization algorithms including full-volu me maximum intensity projection, multiplanar sliding thin-slab reformation, curved-planar reformation , and surface-rendering techniques. Using automated exposure control and adjustment of the mA and/or kV according to patient size, radiation dose was kept as low as reasonably achievable to obtain opti mal diagnostic quality images. DICOM format image data is available electronically for review and co mparison. FINDINGS: Aortic Arch: There is a three-vessel origin of the great vessels from the aorta. No evidence of ost ial narrowing Right Carotid: The common carotid artery is intact. The carotid bulb has a normal configuration wit hout ulceration or narrowing. A "string" sign is noted within the right proximal internal carotid art nilam indicating critical greater than 90% stenosis. Extensive calcified atherosclerotic plaque is also noted distal to the critical stenosis. The external carotid artery is intact. Left Carotid: The common carotid artery is intact. The carotid bulb has a normal configuration with out ulceration or narrowing. There is greater than 70% stenosis involving the proximal left internal carotid artery secondary to extensive calcified atherosclerotic plaque formation. The external caroti d artery is intact. Vertebrals: The left vertebral artery is dominant. No stenotic lesions are seen. Percent stenosis is calculated using the diameter of the stenotic region over the diameter of the nor mal distal internal carotid artery. CONCLUSION: 1. "String" sign is noted within the right proximal internal carotid artery indicating critical grea ter than 90% stenosis. Extensive calcified atherosclerotic plaque is also noted distal to the critica l stenosis. 2. Greater than 70% stenosis involving the proximal left internal carotid artery secondary to extens shawna calcified atherosclerotic plaque formation. Electronically signed by: Gaurav Perez MD Board Certified Radiologist 06/04/2018 12:36 PM EST
[2018-06-04] MEDS: Sod Chloride 0.9% Inj 1,000 ML IV.CONT SCH (12:45)
[2018-06-04] MEDS: Acetaminophen 325 MG Tablet PO PRN (14:04)
[2018-06-04 16:06] LABS: Hemoglobin A1c 5.4 % (4.3-6.0)
--- NOTE | 2018-06-04 16:40 | ECHRPT ---
Indication: CVA/TIA CONCLUSIONS Limited echocardiographic study with apical 5 chamber and subcostal short axis views not obtained. Normal left ventricular size. Wall thickness is measured at the upper limits of normal. The left ventricular systolic function is hyperdynamic with an estimated ejection fraction in the ra nge of 65- 70%. There is trace tricuspid valve regurgitation. BP: / HR: Rhythm: Sinus MEASUREMENTS (Male / Female) Normal Values Technical Quality:Fair 2D ECHO LV Diastolic Diameter PLAX 3.3 cm 4.2 - 5.9 / 3.9 - 5.3 cm LV Systolic Diameter PLAX 2.3 cm IVS Diastolic Thickness 1.0 cm 0.6 - 1.0 / 0.6 - 0.9 cm LVPW Diastolic Thickness 1.0 cm 0.6 - 1.0 / 0.6 - 0.9 cm LV Relative Wall Thickness 0.6 RV Internal Dim ED PLAX 1.7 cm LVOT Diameter 1.6 cm Aortic Root Diameter 2.6 cm LA Systolic Diameter LX 3.0 cm 3.0 - 4.0 / 2.7 - 3.8 cm M-MODE AV Cusp Separation MM 1.7 cm DOPPLER AV Peak Velocity 212.0 cm/s AV Peak Gradient 18.0 mmHg AV Mean Gradient 8.0 mmHg AV Velocity Time Integral 37.8 cm LVOT Peak Velocity 117.0 cm/s LVOT Peak Gradient 5.5 mmHg LVOT Velocity Time Integral 23.6 cm AV Area Cont Eq vti 1.3 cm AV Area Cont Eq pk 1.1 cm Mitral E Point Velocity 95.8 cm/s Mitral A Point Velocity 130.0 cm/s Mitral E to A Ratio 0.7 LV E' Lateral Velocity 7.4 cm/s Mitral E to LV E' Lateral Ratio 12.9 LV E' Septal Velocity 6.7 cm/s Mitral E to LV E' Septal Ratio 14.2 TR Peak Velocity 282.0 cm/s TR Peak Gradient 31.8 mmHg Right Atrial Pressure 10.0 mmHg Pulmonary Artery Systolic Pressu 41.8 mmHg Right Ventricular Systolic Press 41.8 mmHg PV Peak Velocity 38.3 cm/s PV Peak Gradient 0.6 mmHg FINDINGS LEFT VENTRICLE Normal left ventricular size. Wall thickness is measured at the upper limits of normal. The left ventricular systolic function is hyperdynamic with an estimated ejection fraction in the ra nge of 65- 70%. No regional wall motion abnormalities are present. RIGHT VENTRICLE Normal right ventricular size and systolic function. LEFT ATRIUM The left atrial size is normal. RIGHT ATRIUM The right atrial size is normal. ATRIAL SEPTUM The interatrial septum not well visualized. AORTA The aortic root and proximal ascending aorta are not well visualized. MITRAL VALVE Structurally normal mitral valve. Mild thickening of the anterior mitral valve leaflet. No mitral valve stenosis or regurgitation. AORTIC VALVE The aortic valve is not well visualized in the PLAX view. Apical 5 chamber and subcostal short axis views were not obtained. No aortic regurgitation. TRICUSPID VALVE The tricuspid valve is not well visualized. There is trace tricuspid valve regurgitation. PULMONARY VALVE No pulmonary valve regurgitation or stenosis. VESSELS The inferior vena cava is normal in size. PERICARDIUM No pericardial effusion. Naveen Broderick (Electronically Signed) Final Date:04 June 2018 16:38
[2018-06-04] MEDS ORDERED: Sodium Chloride 0.65% Nasal Drops/Spray 30 ML Bottle EACH NARE PRN (21:53)
--- NOTE | 2018-06-05 00:36 | P.CON ---
History of Present Illness Service: oncology Primary Care Provider: UNKNOWN History of Present Illness: Late note entry. Patient seen at approximately 7 pm on 06/04/2018. Ms. Wasserman is a 73 year old lady with metastatic breast cancer who follows in clinic with my colleague Dr. Phillips. SHe has metastatic breast cancer and is on abemaciclib and letrozole. She was admitted to the hospital with recurrent falls at home. Imaging studies revealed acute infarction. Neurology team following with multiple imaging and vascular studies ordered. Breast cancer history as follows: Right breast invasive well-differentiated carcinoma, pathologic stage IIA. She was found to have a right breast mass in the summer of 2014. She saw Dr. Muse and underwent a lumpectomy November 25, 2014. Final pathology showed well-differentiated invasive ductal carcinoma, it measured 3.1 cm, intermediate grade ductal carcinoma in situ also noted, the margin was negative. No angiolymphatic invasion noted, isolated tumor cell involved 1/3 axillary lymph nodes. Pathologic stage T2 N0 (i+), estrogen receptor 99%, progesterone receptor 99%, HER2 0, Ki-67 12%. She declined adjuvant chemotherapy. She received consolidation radiation therapy. She was given tamoxifen in July of 2015, according to the patient she only took it for a few days and developed vaginal bleed She developed abdominal pain and CT scan showed multiple bone lesion. Subsequent PET scan showed several sclerotic hypermetabolic bony lesions throughout the pelvis and vertebral bodies, the most prominent uptake involving the posterior right ischium. In her tumor marker CA 15-3 trended up slightly to 28.3. She had a biopsy of the iliac bone which showed metastatic adenocarcinoma consistent with breast primary. Estrogen receptor 80%, progesterone receptor 69%. HER-2 is still pending. Her tumor marker CA 153 trended up to 32.5. She is started Verzenio and letrozole April 2018. Review of Systems All other systems reviewed negative except as stated in HPI PMFSH - History History Provided By: Patient, Medical Record - Medical History Medical History: Medical History (Last Reviewed 06/05/18 @ 00:29 by Tiana Guzman) Anxiety Bone cancer Breast cancer [place] Hypercholesteremia Hypertension Stomach cancer - Surgical History Surgical History: Surgical History (Last Reviewed 06/05/18 @ 00:29 by Tiana Guzman) H/O lumpectomy History of cholecystectomy - Family History Family History: Family History (Last Reviewed 06/05/18 @ 00:29 by Tiana Guzman) Other Diabetes mellitus - Tobacco History Second Hand Smoke Exposure: No Tobacco Use In Past 30 Days: No Smoking Status: Former smoker Tobacco Type: Cigarettes - Alcohol History How Often Do You Have a Drink Containing Alcohol: Never - Substance Use History Substance History: No History of Abuse - Travel History Recent Travel in the [place] Within the Last 8 Weeks: No Recent Travel Out of the Country Within the Last 8 Weeks: No - Immunization History Tetanus Immunization: Unsure Hx Influenza Vaccine This Season: Unable to Assess Medications and Allergies Active Medications: Active Medications Acetaminophen (Tylenol) 650 mg PO Q4H PRN PRN Reason: HEADACHE Last Admin: 06/04/18 14:04 Dose: 650 mg Aspirin (Aspirin) 325 mg PO DAILY [facility] Last Admin: 06/04/18 08:16 Dose: 325 mg Dextrose (D50w Vial) 50 ml IV.PUSH UNSCH PRN PRN Reason: per Hypoglycemic Protocol Glucagon (Glucagon Inj) 1 mg OTHER UNSCH PRN PRN Reason: per Hypoglycemic Protocol Sodium Chloride (Ns Inj) 1,000 mls @ 70 mls/hr IV.CONT .[id number] [facility] Last Admin: 06/04/18 12:45 Dose: 70 mls/hr Insulin Aspart (Novolog Insulin Correctional Sugar Inj) 0 unit SQ ACHS PRN; Protocol PRN Reason: Per Protocol Lorazepam (Ativan) 0.5 mg PO DAILY [facility] Last Admin: 06/04/18 08:16 Dose: 0.5 mg Miscellaneous Medication ([facility] Information) 1 each OTHER UNSCH X1 PRN PRN Reason: PHARMACY DOCUMENTATION Stop: 06/05/18 07:54 Ondansetron HCl (Zofran Inj) 4 mg IV.PUSH Q6H PRN PRN Reason: Nausea And Vomiting Pt:Verzenio( (Abemaciclib) 150 Mg) 0 each PO BID [facility] Pravastatin Sodium (Pravachol) 80 mg PO QPM [facility] Last Admin: 06/04/18 17:28 Dose: 80 mg Sodium Chloride (Baby [place] Saline 0.65% [place] Drop/[place]) 6 drops EACH NARE UNSCH PRN PRN Reason: dry nose Last Admin: 06/04/18 22:33 Dose: 6 drops Allergies Allergy/AdvReac Type Severity Reaction Status Date / Time No Known Allergies Allergy Verified 06/03/18 15:35 Home Medications Medication Instructions Recorded Confirmed Type lorazepam [Ativan] 0.5 mg PO DAILY 03/20/18 06/03/18 History simvastatin 40 mg PO QPM 03/20/18 06/03/18 History abemaciclib [Verzenio] 150 mg PO BID 05/30/18 06/03/18 History metoprolol tartrate 25 mg PO DAILY 05/30/18 06/03/18 History letrozole 2.5 mg PO DAILY 06/03/18 06/03/18 History Physical Exam Vital signs: Vital Signs 06/04/18 03:48 06/04/18 07:48 06/04/18 08:00 Temperature 98.8 F 98.6 F Pulse Rate 81 85 90 Respiratory Rate 16 16 Blood Pressure 120/73 158/48 H Pulse Oximetry 97 99 06/04/18 12:00 06/04/18 15:20 06/04/18 16:00 Temperature 98.2 F Pulse Rate 78 72 Respiratory Rate 18 18 Blood Pressure 168/59 H 154/65 H Pulse Oximetry 100 06/04/18 16:03 06/04/18 16:06 06/04/18 18:08 Temperature 98.2 F Pulse Rate 76 85 77 Respiratory Rate 18 Blood Pressure 182/66 H 181/75 H Pulse Oximetry 98 06/04/18 20:00 Temperature 98.1 F Pulse Rate 78 Respiratory Rate 17 Blood Pressure 145/63 H Pulse Oximetry 98 Intake & Output 06/04/18 06/04/18 06/05/18 06:59 18:59 06:59 Intake Total 1850 / 1850 Output Total 400 / 400 600 / 600 Balance -400 / -400 1250 / 1250 Weight 75 kg Intake: IV 1000 / 1000 NS Inj 1,000 ML @ 70 mls/hr IV. 1000 / 1000 CONT .[id number] [facility] Rx#:[id number] Oral 850 / 850 Output: Urine 400 / 400 600 / 600 Other: # Voids 3 Date of Last Bowel Movement 06/01/18 06/01/18 # Bowel Movements 0 - Constitutional no acute distress - Routine HEENT Exam Head: Present: normocephalic, atraumatic Eye: Present: EOMI, PERRL ENT: Present: mucous membranes moist - Routine Neck Exam Present: supple - Routine Respiratory Exam Present: CTA bilaterally - Routine Cardiovascular Exam Present: RRR, S1, S2 - Routine Abdominal Exam Present: soft, normoactive bowel sounds - Routine Extremities Exam Comments: no edema - Routine Skin Exam Present: intact - Routine Neurological Exam Present: oriented X3 Results - Labs CBC & Chem 7: 06/03/18 16:19 06/04/18 06:38 Labs: Laboratory Results - last 24 hr 06/04/18 06/04/18 06/04/18 06:38 06:38 06:38 ESR Sodium 139 Potassium 4.0 Chloride 107 Carbon Dioxide 24.4 Anion Gap 8 BUN 11 Creatinine 0.90 Estimated GFR 61 L Random Glucose 90 Hemoglobin A1c 5.4 Calcium 8.4 L Triglycerides 71 Cholesterol 140 LDL Cholesterol, Calc 64 HDL Cholesterol 62.2 H Cholesterol/HDL Ratio 2.25 Vitamin B12 167 L TSH 0.322 L Free T4 1.01 06/04/18 09:05 ESR 45 H Sodium Potassium Chloride Carbon Dioxide Anion Gap BUN Creatinine Estimated GFR Random Glucose Hemoglobin A1c Calcium Triglycerides Cholesterol LDL Cholesterol, Calc HDL Cholesterol Cholesterol/HDL Ratio Vitamin B12 TSH Free T4 - Imaging Impressions Head CTA 06/04/18 00:00 CONCLUSION: 1. Unremarkable CTA of the brain. Neck CTA 06/04/18 00:00 CONCLUSION: 1. "String" sign is noted within the right proximal internal carotid artery indicating critical greater than 90% stenosis. Extensive calcified atherosclerotic plaque is also noted distal to the critical stenosis. 2. Greater than 70% stenosis involving the proximal left internal carotid artery secondary to extensive calcified atherosclerotic plaque formation. Cervical Spine MRI 06/04/18 07:52 CONCLUSION: Mild disc protrusions at multiple levels, none producing significant anatomic compromise at present. Lumbar Spine MRI 06/04/18 07:52 CONCLUSION: Mild disc disease in the lower lumbar spine. No significant anatomic compromise at present. Thoracic Spine MRI 06/04/18 07:52 CONCLUSION: 1. There is evidence of focal bony metastatic deposits in the body of T11 and T12. This correlates with patient's previous PET/CT of 02/02/2018. 2. No compression fracture injuries are demonstrated. 3. There are mild degenerative type changes also noted involving the thoracic spine. Head MRA 06/04/18 19:52 CONCLUSION: No significant stenosis or occlusion of the intracerebral arteries. Scattered mild stenoses are noted throughout the bilateral middle and posterior cerebral arteries. Assessment and Plan - Plan Metastatic breast cancer: continue to hold abemaciclib and letrozole while inpatient. Abemaciclib with a 11% risk of dizziness. Letrozole with a 10 risk of dizziness. Patient reports that she initially noticed dizziness in 04/2018 when she initially started therapy for breast cancer. CVA: neurology team following. Imaging stuides pending. Anemia and TCP: mild. Likely due to verenzio and letrozole. Continue to trend.
[2018-06-05] MEDS: Sod Chloride 0.9% Inj 1,000 ML IV.CONT SCH (04:08)
[2018-06-05 06:20] LABS: Creatine Kinase 107 U/L (26-192)
--- NOTE | 2018-06-05 07:52 | P.PNNEU ---
Subjective Active Medications: Active Medications Acetaminophen (Tylenol) 650 mg PO Q4H PRN PRN Reason: HEADACHE Last Admin: 06/04/18 14:04 Dose: 650 mg Aspirin (Aspirin) 325 mg PO DAILY [facility] Last Admin: 06/04/18 08:16 Dose: 325 mg Cyanocobalamin (Vitamin B12) 1,000 mcg PO DAILY [facility] Cyanocobalamin (Vitamin B12 Inj) 1,000 mcg SQ ONCE ONE Stop: 06/05/18 07:45 Dextrose (D50w Vial) 50 ml IV.PUSH UNSCH PRN PRN Reason: per Hypoglycemic Protocol Glucagon (Glucagon Inj) 1 mg OTHER UNSCH PRN PRN Reason: per Hypoglycemic Protocol Sodium Chloride (Ns Inj) 1,000 mls @ 70 mls/hr IV.CONT .[id number] [facility] Last Admin: 06/05/18 04:08 Dose: 70 mls/hr Insulin Aspart (Novolog Insulin Correctional Sugar Inj) 0 unit SQ ACHS PRN; Protocol PRN Reason: Per Protocol Lorazepam (Ativan) 0.5 mg PO DAILY [facility] Last Admin: 06/04/18 08:16 Dose: 0.5 mg Miscellaneous Medication ([facility]) 1 each OTHER UNSCH X1 PRN PRN Reason: PHARMACY DOCUMENTATION Stop: 06/05/18 07:54 Multivitamins (Theragran) 1 tab PO DAILY [facility] Ondansetron HCl (Zofran Inj) 4 mg IV.PUSH Q6H PRN PRN Reason: Nausea And Vomiting Pt:Verzenio( (Abemaciclib) 150 Mg) 0 each PO BID [facility] Pravastatin Sodium (Pravachol) 80 mg PO QPM [facility] Last Admin: 06/04/18 17:28 Dose: 80 mg Sodium Chloride (Baby [place] Saline 0.65% [place] Drop/[place]) 6 drops EACH NARE UNSCH PRN PRN Reason: dry nose Last Admin: 06/04/18 22:33 Dose: 6 drops Allergies/Adverse Reactions: Allergies Allergy/AdvReac Type Severity Reaction Status Date / Time No Known Allergies Allergy Verified 06/03/18 15:35 Physical Exam Vital signs: Vital Signs 06/04/18 07:48 06/04/18 08:00 06/04/18 12:00 Temperature 98.6 F 98.2 F Pulse Rate 85 90 78 Respiratory Rate 16 18 Blood Pressure 158/48 H 168/59 H Pulse Oximetry 99 100 06/04/18 15:20 06/04/18 16:00 06/04/18 16:03 Temperature Pulse Rate 72 76 Respiratory Rate 18 Blood Pressure 154/65 H 182/66 H Pulse Oximetry 06/04/18 16:06 06/04/18 18:08 06/04/18 20:00 Temperature 98.2 F 98.1 F Pulse Rate 85 77 78 Respiratory Rate 18 17 Blood Pressure 181/75 H 145/63 H Pulse Oximetry 98 98 06/05/18 00:00 06/05/18 04:00 Temperature 97.7 F 98.6 F Pulse Rate 75 75 Respiratory Rate 16 16 Blood Pressure 152/68 H 160/68 H Pulse Oximetry 98 100 Intake & Output 06/04/18 06/05/18 06/05/18 18:59 06:59 18:59 Intake Total 1850 / 1850 1000 / 1000 Output Total 600 / 600 1700 / 1700 Balance 1250 / 1250 -700 / -700 Weight 75.1 kg Intake: IV 1000 / 1000 1000 / 1000 NS Inj 1,000 ML @ 70 mls/hr IV. 1000 / 1000 1000 / 1000 CONT .[id number] [facility] Rx#:[id number] Oral 850 / 850 Output: Urine 600 / 600 1700 / 1700 Other: # Voids 3 Date of Last Bowel Movement 06/01/18 06/01/18 # Bowel Movements 0 Narrative: sr awake vff alert nl speech moving all well inc lle Objective Laboratory Results - last 24 hr 06/04/18 06/04/18 06/04/18 06:38 06:38 09:05 ESR 45 H Hemoglobin A1c 5.4 Total Creatine Kinase Troponin I Vitamin B12 167 L TSH 0.322 L Free T4 1.01 06/05/18 05:47 ESR Hemoglobin A1c Total Creatine Kinase 107 Troponin I Less than 0.02 L Vitamin B12 TSH Free T4 Review/Management - Review/Management Plan: imp r emir cva on asa ldl nl r ica >90% left >70 % have vascular see needs cea right first trop and echo neg mri t11 met known c and ls spine neg
[2018-06-05] MEDS: Aspirin 325 MG Tablet PO SCH (09:00)
--- NOTE | 2018-06-05 09:59 | P.CONVS ---
History of Present Illness Service: Vascular surgery Consult date: 06/05/18 Primary Care Provider: UNKNOWN Chief Complaint: Carotid stenosis History of Present Illness: 73-year-old female with past medical history metastatic breast cancer. She is admitted to the hospital with acute versus subacute right hemispheric stroke. She was noted to have bilateral carotid stenosis. She reports left side weakness. She denies any amaurosis fugax. She denies any chest pain or shortness of breath. Review of Systems All other systems reviewed negative except as stated in HPI [facility] - History History Provided By: Patient, Medical Record - Medical History Medical History: Medical History (Last Reviewed 06/05/18 @ 08:32 by Walter Cohn, PT) Anxiety Bone cancer Breast cancer [place] Hypercholesteremia Hypertension Stomach cancer - Surgical History Surgical History: Surgical History (Last Reviewed 06/05/18 @ 00:29 by Tiana Guzman) H/O lumpectomy History of cholecystectomy - Family History Family History: Family History (Last Reviewed 06/05/18 @ 00:29 by Tiana Guzman) Other Diabetes mellitus - Tobacco History Second Hand Smoke Exposure: No Tobacco Use In Past 30 Days: No Smoking Status: Former smoker Tobacco Type: Cigarettes - Alcohol History How Often Do You Have a Drink Containing Alcohol: Never - Substance Use History Substance History: No History of Abuse - Travel History Recent Travel in the [place] Within the Last 8 Weeks: No Recent Travel Out of the Country Within the Last 8 Weeks: No - Immunization History Tetanus Immunization: Unsure Hx Influenza Vaccine This Season: Unable to Assess Medications and Allergies Active Medications: Active Medications Acetaminophen (Tylenol) 650 mg PO Q4H PRN PRN Reason: HEADACHE Last Admin: 06/04/18 14:04 Dose: 650 mg Aspirin (Aspirin) 325 mg PO DAILY [facility] Last Admin: 06/04/18 08:16 Dose: 325 mg Cyanocobalamin (Vitamin B12) 1,000 mcg PO DAILY [facility] Cyanocobalamin (Vitamin B12 Inj) 1,000 mcg SQ DAILY [facility] Stop: 06/07/18 09:01 Dextrose (D50w Vial) 50 ml IV.PUSH UNSCH PRN PRN Reason: per Hypoglycemic Protocol Glucagon (Glucagon Inj) 1 mg OTHER UNSCH PRN PRN Reason: per Hypoglycemic Protocol Sodium Chloride (Ns Inj) 1,000 mls @ 70 mls/hr IV.CONT .[id number] [facility] Last Admin: 06/05/18 04:08 Dose: 70 mls/hr Insulin Aspart (Novolog Insulin Correctional Sugar Inj) 0 unit SQ ACHS PRN; Protocol PRN Reason: Per Protocol Lorazepam (Ativan) 0.5 mg PO DAILY [facility] Last Admin: 06/04/18 08:16 Dose: 0.5 mg Multivitamins (Theragran) 1 tab PO DAILY [facility] Ondansetron HCl (Zofran Inj) 4 mg IV.PUSH Q6H PRN PRN Reason: Nausea And Vomiting Pt:Verzenio( (Abemaciclib) 150 Mg) 0 each PO BID [facility] Pravastatin Sodium (Pravachol) 80 mg PO QPM [facility] Last Admin: 06/04/18 17:28 Dose: 80 mg Sodium Chloride (Baby [place] Saline 0.65% Arias Drop/[place]) 6 drops EACH NARE UNSCH PRN PRN Reason: dry nose Last Admin: 06/04/18 22:33 Dose: 6 drops Allergies Allergy/AdvReac Type Severity Reaction Status Date / Time No Known Allergies Allergy Verified 06/03/18 15:35 Home Medications Medication Instructions Recorded Confirmed Type lorazepam [Ativan] 0.5 mg PO DAILY 03/20/18 06/03/18 History simvastatin 40 mg PO QPM 03/20/18 06/03/18 History abemaciclib [Verzenio] 150 mg PO BID 05/30/18 06/03/18 History metoprolol tartrate 25 mg PO DAILY 05/30/18 06/03/18 History letrozole 2.5 mg PO DAILY 06/03/18 06/03/18 History Physical Exam Vital Signs / I&O: Vital Signs 06/04/18 12:00 06/04/18 15:20 06/04/18 16:00 Temperature 98.2 F Pulse Rate 78 72 Respiratory Rate 18 18 Blood Pressure 168/59 H 154/65 H Pulse Oximetry 100 06/04/18 16:03 06/04/18 16:06 06/04/18 18:08 Temperature 98.2 F Pulse Rate 76 85 77 Respiratory Rate 18 Blood Pressure 182/66 H 181/75 H Pulse Oximetry 98 06/04/18 20:00 06/05/18 00:00 06/05/18 04:00 Temperature 98.1 F 97.7 F 98.6 F Pulse Rate 78 75 75 Respiratory Rate 17 16 16 Blood Pressure 145/63 H 152/68 H 160/68 H Pulse Oximetry 98 98 100 Intake & Output 06/04/18 06/05/18 06/05/18 18:59 06:59 18:59 Intake Total 1850 / 1850 1000 / 1000 Output Total 600 / 600 1700 / 1700 Balance 1250 / 1250 -700 / -700 Weight 75.1 kg Intake: IV 1000 / 1000 1000 / 1000 NS Inj 1,000 ML @ 70 mls/hr IV. 1000 / 1000 1000 / 1000 CONT .[id number] [facility] Rx#:[id number] Oral 850 / 850 Output: Urine 600 / 600 1700 / 1700 Other: # Voids 3 Date of Last Bowel Movement 06/01/18 06/01/18 # Bowel Movements 0 Neuro: Alert awake oriented Cranial nerves II through XII intact 4/5 motor function of the left lower extremity 5/5 motor function throughout HEENT: Normocephalic atraumatic Neck: Right carotid bruit Heart: S1-S2 Lungs: Clear to auscultation bilateral Abdomen: Soft nontender nondistended Vascular: Palpable femoral pulses bilaterally Laboratory Results - last 24 hr 06/04/18 06/04/18 06/04/18 06:38 06:38 09:05 ESR 45 H Hemoglobin A1c 5.4 Total Creatine Kinase Troponin I Vitamin B12 167 L TSH 0.322 L Free T4 1.01 06/05/18 05:47 ESR Hemoglobin A1c Total Creatine Kinase 107 Troponin I Less than 0.02 L Vitamin B12 TSH Free T4 Impressions Carotid Doppler Study 06/03/18 00:00 CONCLUSION: 1. Right Internal Carotid Artery: Findings indicate near occlusion of the proximal internal carotid artery and possible complete occlusion of the mid and distal internal carotid artery. 2. Left Internal Carotid Artery: Findings indicate 50-69% stenosis. Head CT 06/03/18 15:49 CONCLUSION: 1. No focal or acute intracranial hemorrhage. 2. Bilateral cortical atrophy and chronic white matter changes. 3. 2 cm area of low density high along the right cerebral vertex. Given patient's history of breast carcinoma with bony metastatic disease, a metastatic deposit is a possibility versus subacute infarct. Therefore, recommend MRI of the brain with and without contrast for further evaluation. 4. Bony metastatic disease. . Hip X-Ray 06/03/18 15:49 CONCLUSION: No acute fracture or joint dislocation. Head MRI 06/03/18 17:31 CONCLUSION: 1. The area of abnormality on the recent CT scan correlates to an area of acute to subacute nonhemorrhagic infarction involving the right parietal lobe. 2. Small metastatic lesions involving the calvarium. 3. No MRI evidence to suggest metastatic disease to the brain parenchyma. Head CTA 06/04/18 00:00 CONCLUSION: 1. Unremarkable CTA of the brain. Neck CTA 06/04/18 00:00 CONCLUSION: 1. "String" sign is noted within the right proximal internal carotid artery indicating critical greater than 90% stenosis. Extensive calcified atherosclerotic plaque is also noted distal to the critical stenosis. 2. Greater than 70% stenosis involving the proximal left internal carotid artery secondary to extensive calcified atherosclerotic plaque formation. Cervical Spine MRI 06/04/18 07:52 CONCLUSION: Mild disc protrusions at multiple levels, none producing significant anatomic compromise at present. Lumbar Spine MRI 06/04/18 07:52 CONCLUSION: Mild disc disease in the lower lumbar spine. No significant anatomic compromise at present. Thoracic Spine MRI 06/04/18 07:52 CONCLUSION: 1. There is evidence of focal bony metastatic deposits in the body of T11 and T12. This correlates with patient's previous PET/CT of 02/02/2018. 2. No compression fracture injuries are demonstrated. 3. There are mild degenerative type changes also noted involving the thoracic spine. Head MRA 06/04/18 19:52 CONCLUSION: No significant stenosis or occlusion of the intracerebral arteries. Scattered mild stenoses are noted throughout the bilateral middle and posterior cerebral arteries. Assessment and Plan - Assessment (1) Carotid stenosis, symptomatic, with infarction Code(s): I63.239 - Cerebral infarction due to unspecified occlusion or stenosis of unspecified carotid artery Status: Acute - Plan Severe symptomatic right carotid artery stenosis Acute versus subacute right hemispheric stroke Patient will need right carotid artery endarterectomy. Risk, benefits, and alternatives were explained to the patient and she agreed to the procedure. This includes the risk of perioperative stroke, cerebral hyperperfusion syndrome , cranial nerve injury, intracranial bleed, neck hematoma, perioperative NE. I was unable to proceed with surgery today due to NPO status will plan for Friday Severe asymptomatic left carotid artery stenosis Patient will need elective carotid artery endarterectomy as outpatient. Continue with best medical management including antiplatelet therapy and statin therapy. Thank you for allowing us for to participate in this patient care, if you have any questions please do not hesitate to call my cell phone Pawan Alexis [phone]
--- NOTE | 2018-06-05 10:48 | P.PN ---
Subjective Interval history: Follow-up acute CVA/frequent falls June 04, 2018-patient seen and examined, denies any shortness of breath, chest pain or dizziness. Denies any weakness to any extremities June 05, 2018-patient seen and examined, had episode of confusion this a.m. however during my exam patient appears alert and oriented x3. Was seen by vascular surgery regarding right stenosis ICA. She denies any chest pain or shortness of breath. Physical Exam Vital signs: Vital Signs 06/04/18 12:00 06/04/18 15:20 06/04/18 16:00 Temperature 98.2 F Pulse Rate 78 72 Respiratory Rate 18 18 Blood Pressure 168/59 H 154/65 H Pulse Oximetry 100 06/04/18 16:03 06/04/18 16:06 06/04/18 18:08 Temperature 98.2 F Pulse Rate 76 85 77 Respiratory Rate 18 Blood Pressure 182/66 H 181/75 H Pulse Oximetry 98 06/04/18 20:00 06/05/18 00:00 06/05/18 04:00 Temperature 98.1 F 97.7 F 98.6 F Pulse Rate 78 75 75 Respiratory Rate 17 16 16 Blood Pressure 145/63 H 152/68 H 160/68 H Pulse Oximetry 98 98 100 Intake & Output 06/04/18 06/05/18 06/05/18 18:59 06:59 18:59 Intake Total 1850 / 1850 1000 / 1000 Output Total 600 / 600 1700 / 1700 Balance 1250 / 1250 -700 / -700 Weight 75.1 kg Intake: IV 1000 / 1000 1000 / 1000 NS Inj 1,000 ML @ 70 mls/hr IV. 1000 / 1000 1000 / 1000 CONT .[id number] [facility] Rx#:[id number] Oral 850 / 850 Output: Urine 600 / 600 1700 / 1700 Other: # Voids 3 Date of Last Bowel Movement 06/01/18 06/01/18 # Bowel Movements 0 Narrative: GENERAL: NAD SKIN: Warm and dry. HEAD: Atraumatic. Normocephalic. EYES: Pupils equal and round. No scleral icterus. No injection or drainage. ENT: No nasal bleeding or discharge. Mucous membranes pink and moist. NECK: Trachea midline. No JVD. CARDIOVASCULAR: Regular rate and rhythm. RESPIRATORY: No accessory muscle use. Clear to auscultation. Breath sounds equal bilaterally. GASTROINTESTINAL: Abdomen soft, non-tender, nondistended. Hepatic and splenic margins not palpable. MUSCULOSKELETAL: Extremities without clubbing, cyanosis, or edema. No obvious deformities. NEUROLOGICAL: Awake and alert. No obvious cranial nerve deficits. Motor grossly within normal limits. Five out of 5 muscle strength in the arms and legs. Normal speech. PSYCHIATRIC: Appropriate mood and affect; insight and judgment normal. Results - Labs CBC & Chem 7: 06/03/18 16:19 06/04/18 06:38 Laboratory Results - last 24 hr 06/04/18 06/05/18 06:38 05:47 Hemoglobin A1c 5.4 Total Creatine Kinase 107 Troponin I Less than 0.02 L - Imaging Impressions Head CTA 06/04/18 00:00 CONCLUSION: 1. Unremarkable CTA of the brain. Neck CTA 06/04/18 00:00 CONCLUSION: 1. "String" sign is noted within the right proximal internal carotid artery indicating critical greater than 90% stenosis. Extensive calcified atherosclerotic plaque is also noted distal to the critical stenosis. 2. Greater than 70% stenosis involving the proximal left internal carotid artery secondary to extensive calcified atherosclerotic plaque formation. Cervical Spine MRI 06/04/18 07:52 CONCLUSION: Mild disc protrusions at multiple levels, none producing significant anatomic compromise at present. Lumbar Spine MRI 06/04/18 07:52 CONCLUSION: Mild disc disease in the lower lumbar spine. No significant anatomic compromise at present. Thoracic Spine MRI 06/04/18 07:52 CONCLUSION: 1. There is evidence of focal bony metastatic deposits in the body of T11 and T12. This correlates with patient's previous PET/CT of 02/02/2018. 2. No compression fracture injuries are demonstrated. 3. There are mild degenerative type changes also noted involving the thoracic spine. Assessment and Plan - Plan 73-year-old female with Ischemic AGUSTIN CVA Treatment per stroke protocol Appreciate input from neurology Continue permissive hypertension, aspirin, statin 2D echo, Holter monitoring pending PT/OT to treat and eval Rehabilitation medicine consultation pending Right ICA stenosis Neck CTA with 90% right ICA Vascular surgery consulted and appreciate input. Plan for right CEA Hypertension Allow for permissive hypertension Resume Lopressor June 06, 2018 History of metastasis breast cancer Oncology consultation appreciated continue to hold abemaciclib and letrozole while inpatient DVT prophylaxis: Bilateral SCDs
[2018-06-05] MEDS: LORazepam 0.5 MG Tablet PO SCH (12:37)
[2018-06-06] MEDS: Aspirin 325 MG Tablet PO SCH (08:51)
[2018-06-06] MEDS: Metoprolol Tartrate 25 MG Tablet PO SCH (08:51)
[2018-06-06] MEDS: LORazepam 0.5 MG Tablet PO SCH (08:51)
--- NOTE | 2018-06-06 09:27 | P.PNONC ---
Subjective Interval history: Afebrile Patient reports she is overall feeling good Somewhat anxious about surgery on Friday Hoping to have something chocolate on her meal trays today Per it application architect she has been lucid with no more episodes of confusion Objective Vital Signs/Intake & Output: Vital Signs 06/05/18 12:00 06/05/18 16:00 06/05/18 20:00 Temperature 97.9 F 97.6 F 98.3 F Pulse Rate 75 72 79 Respiratory Rate 18 18 18 Blood Pressure 130/76 140/71 144/66 H Pulse Oximetry 06/06/18 00:00 06/06/18 03:53 06/06/18 04:00 Temperature 98.3 F 98.4 F Pulse Rate 69 75 79 Respiratory Rate 18 18 Blood Pressure 130/51 L 162/72 H Pulse Oximetry 06/06/18 08:00 Temperature 98.1 F Pulse Rate 72 Respiratory Rate 19 Blood Pressure 157/73 H Pulse Oximetry 98 Intake & Output 06/05/18 06/06/18 06/06/18 18:59 06:59 18:59 Intake Total 1200 / 1200 300 / 300 Output Total 900 / 900 600 / 600 Balance 300 / 300 -300 / -300 Weight 167 lb 1.766 oz Intake: IV 700 / 700 NS Inj 1,000 ML @ 70 mls/hr IV. 700 / 700 CONT .[id number] [facility] Rx#:[id number] Oral 500 / 500 300 / 300 Output: Urine 900 / 900 600 / 600 Other: Date of Last Bowel Movement 06/05/18 06/05/18 06/05/18 Result Diagrams: 06/03/18 16:19 06/04/18 06:38 Medications: Active Medications Generic Name Dose Route Start Last Admin Trade Name Freq PRN Reason Stop Dose Admin Acetaminophen 650 mg 06/04/18 12:55 06/04/18 14:04 Tylenol PO 650 mg Q4H PRN Administration HEADACHE Aspirin 325 mg 06/04/18 09:00 06/06/18 08:51 Aspirin PO 325 mg DAILY [facility] Administration Cyanocobalamin 1,000 mcg 06/05/18 09:00 06/06/18 08:50 Vitamin B12 Inj SQ 06/07/18 09:01 1,000 mcg DAILY [facility] Administration Lorazepam 0.5 mg 06/04/18 09:00 06/06/18 08:51 Ativan PO 0.5 mg DAILY [facility] Administration Metoprolol Tartrate 25 mg 06/06/18 09:00 06/06/18 08:51 Lopressor PO 25 mg DAILY [facility] Administration Multivitamins 1 tab 06/05/18 09:00 06/06/18 08:51 Theragran PO 1 tab DAILY [facility] Administration Pravastatin Sodium 80 mg 06/04/18 18:00 06/05/18 18:11 Pravachol PO 80 mg QPM [facility] Administration Sodium Chloride 6 drops 06/04/18 21:53 06/04/18 22:33 Baby [place] Saline 0.65% Arias Drop/[place] EACH NARE 6 drops UNSCH PRN Administration dry nose Objective Remarks: GENERAL: Older female sitting up in bed in no acute distress SKIN: Warm and dry. HEAD: Normocephalic. EYES: No scleral icterus. No injection or drainage. NECK: Supple, trachea midline. No JVD or lymphadenopathy. CARDIOVASCULAR: Regular rate and rhythm without murmurs. RESPIRATORY: Breath sounds equal bilaterally. No accessory muscle use. GASTROINTESTINAL: Abdomen soft, non-tender, nondistended. EXTREMITIES: No cyanosis, or edema. MUSCULOSKELETAL: Adequate muscle tone. NEUROLOGICAL: Minimally decreased weakness to the left lower extremity. Upper extremities of equal strength. Normal speech. Follows commands. Assessment/Plan - Plan 73-year-old female with metastatic breast cancer with bony involvement admitted after fall found to have acute to subacute CVA involving the right parietal lobe. 1. Vascular surgery planning right-sided endarterectomy for Friday 2. Discussed with the patient that the carotid stenosis was a likely cause of her dizziness 3. Continue to hold aromatase inhibitor and Verzenio until she follows up in clinic outpatient 4. Continue supportive care. - Attending Statement Pt doing very well. NO c/o. Awaiting carotid endarterectomy early next week. Reviewed carotid dopplers. Extensive cerebro vascular disease most likely reason for pt's dizziness. Will follow up with Dr. Guzman regarding resumption of AI and Verzenio.
--- NOTE | 2018-06-06 10:51 | P.PN ---
Subjective Interval history: Follow-up acute CVA/frequent falls June 04, 2018-patient seen and examined, denies any shortness of breath, chest pain or dizziness. Denies any weakness to any extremities June 05, 2018-patient seen and examined, had episode of confusion this a.m. however during my exam patient appears alert and oriented x3. Was seen by vascular surgery regarding right stenosis ICA. She denies any chest pain or shortness of breath. June 06, 2018-patient seen and examined, no dizziness, chest pain or shortness of breath. she is Anxious about Right CEA surgery on Friday Physical Exam Vital signs: Vital Signs 06/05/18 12:00 06/05/18 16:00 06/05/18 20:00 Temperature 97.9 F 97.6 F 98.3 F Pulse Rate 75 72 79 Respiratory Rate 18 18 18 Blood Pressure 130/76 140/71 144/66 H Pulse Oximetry 06/06/18 00:00 06/06/18 03:53 06/06/18 04:00 Temperature 98.3 F 98.4 F Pulse Rate 69 75 79 Respiratory Rate 18 18 Blood Pressure 130/51 L 162/72 H Pulse Oximetry 06/06/18 08:00 Temperature 98.1 F Pulse Rate 72 Respiratory Rate 19 Blood Pressure 157/73 H Pulse Oximetry 98 Intake & Output 06/05/18 06/06/18 06/06/18 18:59 06:59 18:59 Intake Total 1200 / 1200 300 / 300 Output Total 900 / 900 600 / 600 Balance 300 / 300 -300 / -300 Weight 75.8 kg Intake: IV 700 / 700 NS Inj 1,000 ML @ 70 mls/hr IV. 700 / 700 CONT .[id number] [facility] Rx#:[id number] Oral 500 / 500 300 / 300 Output: Urine 900 / 900 600 / 600 Other: Date of Last Bowel Movement 06/05/18 06/05/18 06/05/18 Narrative: GENERAL: NAD SKIN: Warm and dry. HEAD: Atraumatic. Normocephalic. EYES: Pupils equal and round. No scleral icterus. No injection or drainage. ENT: No nasal bleeding or discharge. Mucous membranes pink and moist. NECK: Trachea midline. No JVD. CARDIOVASCULAR: Regular rate and rhythm. RESPIRATORY: No accessory muscle use. Clear to auscultation. Breath sounds equal bilaterally. GASTROINTESTINAL: Abdomen soft, non-tender, nondistended. Hepatic and splenic margins not palpable. MUSCULOSKELETAL: Extremities without clubbing, cyanosis, or edema. No obvious deformities. NEUROLOGICAL: Awake and alert. No obvious cranial nerve deficits. Motor grossly within normal limits. Five out of 5 muscle strength in the arms and legs. Normal speech. PSYCHIATRIC: Appropriate mood and affect; insight and judgment normal. Results - Labs CBC & Chem 7: 06/03/18 16:19 06/04/18 06:38 Assessment and Plan - Plan 73-year-old female with Ischemic AGUSTIN CVA Treatment per stroke protocol Appreciate input from neurology Continue aspirin, statin 2D echo with EF 65-70%, Holter monitoring pending PT/OT to treat and eval Rehabilitation medicine consulted and appreciate input Right ICA stenosis Neck CTA with 90% right ICA Vascular surgery consulted and appreciate input. Plan for right CEA June 08, 2018 Hypertension Continue Lopressor History of metastasis breast cancer Oncology consultation appreciated continue to hold Abemaciclib and letrozole while inpatient DVT prophylaxis: Bilateral SCDs
--- NOTE | 2018-06-06 12:08 | P.PNVS ---
Subjective Subjective/Hospital Course: doing well no acute issues Objective Vital Signs / I&O: Vital Signs 06/05/18 16:00 06/05/18 20:00 06/06/18 00:00 Temperature 97.6 F 98.3 F 98.3 F Pulse Rate 72 79 69 Respiratory Rate 18 18 18 Blood Pressure 140/71 144/66 H 130/51 L Pulse Oximetry 06/06/18 03:53 06/06/18 04:00 06/06/18 08:00 Temperature 98.4 F 98.1 F Pulse Rate 75 79 75 Respiratory Rate 18 19 Blood Pressure 162/72 H 157/73 H Pulse Oximetry 98 Intake & Output 06/05/18 06/06/18 06/06/18 18:59 06:59 18:59 Intake Total 1200 / 1200 300 / 300 Output Total 900 / 900 600 / 600 Balance 300 / 300 -300 / -300 Weight 75.8 kg Intake: IV 700 / 700 NS Inj 1,000 ML @ 70 mls/hr IV. 700 / 700 CONT .[id number] [facility] Rx#:[id number] Oral 500 / 500 300 / 300 Output: Urine 900 / 900 600 / 600 Other: Date of Last Bowel Movement 06/05/18 06/05/18 06/05/18 Physical Exam: neurologically stable Impressions Neck CTA 06/04/18 00:00 CONCLUSION: 1. "String" sign is noted within the right proximal internal carotid artery indicating critical greater than 90% stenosis. Extensive calcified atherosclerotic plaque is also noted distal to the critical stenosis. 2. Greater than 70% stenosis involving the proximal left internal carotid artery secondary to extensive calcified atherosclerotic plaque formation. Assessment and Plan - Assessment (1) Carotid stenosis, symptomatic, with infarction Code(s): I63.239 - Cerebral infarction due to unspecified occlusion or stenosis of unspecified carotid artery Status: Acute - Plan Severe symptomatic right carotid artery stenosis Acute versus subacute right hemispheric stroke Right CEA on Friday [facility]awan Alexis [facility] [phone]
[2018-06-06] MEDS: Acetaminophen 325 MG Tablet PO PRN (17:22)
[2018-06-06] MEDS ORDERED: LORazepam 0.5 MG Tablet PO ONE (21:30)
--- NOTE | 2018-06-06 22:57 | HM ---
Date Performed: 06/04/2018 Time Performed: 13:40:00 HOOKUP DATE: 06/04/18 01:40:00 PM Abi ANALYSIS START TIME: 06/04/2018 1:45:00 PM ANALYSIS END TIME: 06/05/2018 1:15:10 PM PATIENT AGE: 73 PATIENT HEIGHT PATIENT WEIGHT DRUG LIST PATIENT DIAGNOSIS: falls TEST NARRATIVE: The patient's average heart rate was 84 BPM. Heart rates greater than 120 B PM were noted 1% of the time. No episodes of bradycardia were noted. No pauses exceeding 2.0 sec onds were noted. No ventricular ectopics were noted. 133 supraventricular ectopics, which rep resented < 1% of the total beat count, were noted. The highest supraventricular ectopic frequency oc curred from 03:00 PM to 04:00 PM Abi. During this time 16 SVE(s) occurred. No episodes of ST dep ression (defined as -1.0 mm or more) were noted in channel 1. No episodes of ST depression (defined as -1.0 mm or more) were noted in channel 2. No episodes of ST depression (defined as -1.0 mm or mor e) were noted in channel 3. VERY POOR QUALITY TRACING, NO DIARY MAINTAINED TEST INTERPRETATION: 1. Predominant underlying rhythm is Sinus rhythm 2. Occasional PACs and PVCs noted 3. Paroxysmal Atrial fibrillation noted 4. No pauses greater than 2.0 sec noted Signed by : Emory rachel
[2018-06-07] MEDS: Aspirin 325 MG Tablet PO SCH (08:20)
[2018-06-07] MEDS: LORazepam 0.5 MG Tablet PO SCH (08:21)
[2018-06-07] MEDS: Metoprolol Tartrate 25 MG Tablet PO SCH (08:21)
--- NOTE | 2018-06-07 11:09 | P.PN ---
Subjective Interval history: Follow-up acute CVA/frequent falls June 04, 2018-patient seen and examined, denies any shortness of breath, chest pain or dizziness. Denies any weakness to any extremities June 05, 2018-patient seen and examined, had episode of confusion this a.m. however during my exam patient appears alert and oriented x3. Was seen by vascular surgery regarding right stenosis ICA. She denies any chest pain or shortness of breath. June 06, 2018-patient seen and examined, no dizziness, chest pain or shortness of breath. she is Anxious about Right CEA surgery on Thursday June 07, 2018-patient seen and examined, had episode of owning overnight , otherwise stable this morning alert and oriented x3. No chest pain or shortness of breath Physical Exam Vital signs: Vital Signs 06/06/18 12:00 06/06/18 16:00 06/06/18 18:32 Temperature 97.8 F 98.1 F Pulse Rate 64 65 Respiratory Rate 19 17 20 Blood Pressure 130/60 158/76 H Pulse Oximetry 98 98 06/06/18 19:37 06/06/18 19:56 06/06/18 23:41 Temperature 98.2 F 98.1 F Pulse Rate 69 71 71 Respiratory Rate 18 18 Blood Pressure 157/69 H 149/58 H Pulse Oximetry 97 99 06/07/18 00:50 06/07/18 04:00 06/07/18 04:45 Temperature 98.2 F Pulse Rate 76 67 71 Respiratory Rate 18 Blood Pressure 161/80 H Pulse Oximetry 98 Intake & Output 06/06/18 06/07/18 06/07/18 18:59 06:59 18:59 Other: # Voids 1 # Incontinent Voids 4 1 Date of Last Bowel Movement 06/05/18 06/05/18 06/05/18 Narrative: GENERAL: NAD SKIN: Warm and dry. HEAD: Atraumatic. Normocephalic. EYES: Pupils equal and round. No scleral icterus. No injection or drainage. ENT: No nasal bleeding or discharge. Mucous membranes pink and moist. NECK: Trachea midline. No JVD. CARDIOVASCULAR: Regular rate and rhythm. RESPIRATORY: No accessory muscle use. Clear to auscultation. Breath sounds equal bilaterally. GASTROINTESTINAL: Abdomen soft, non-tender, nondistended. Hepatic and splenic margins not palpable. MUSCULOSKELETAL: Extremities without clubbing, cyanosis, or edema. No obvious deformities. NEUROLOGICAL: Awake and alert. No obvious cranial nerve deficits. Motor grossly within normal limits. Five out of 5 muscle strength in the arms and legs. Normal speech. PSYCHIATRIC: Appropriate mood and affect; insight and judgment normal. Results - Labs CBC & Chem 7: 06/03/18 16:19 06/04/18 06:38 Assessment and Plan - Plan 73-year-old female with Ischemic AGUSTIN CVA Treatment per stroke protocol Appreciate input from neurology Continue aspirin, statin 2D echo with EF 65-70%, Holter monitoring PT/OT to treat and eval Rehabilitation medicine consulted and appreciate input Right ICA stenosis Neck CTA with 90% right ICA Vascular surgery consulted and appreciate input. Plan for right CEA tomorrow Friday June 08, 2018 Continue aspirin, beta-gavi, statin Hypertension Continue Lopressor History of metastasis breast cancer Oncology consultation appreciated continue to hold Abemaciclib and letrozole while inpatient DVT prophylaxis: Bilateral SCDs Discharge Planning: Likely discharge after right CEA to the next 1-2 days postprocedure
--- NOTE | 2018-06-07 14:16 | ECG ---
Date Performed: 06/07/2018 Time Performed: 13:58:20 PTAGE: 73 years EKG: Sinus rhythm BORDERLINE LEFT AXIS DEVIATION LOW QRS VOLTAGE IN PRECORDIAL LEADS MINIMAL VOLTAGE CRITERIA FOR LVH, CONSIDER NORMAL VARIANT BORDERLINE ECG NO PREVIOUS TRACING DOCTOR: Yonny Goetz Interpretating Date/Time 06/07/2018 14:14:51
--- NOTE | 2018-06-07 21:52 | P.PNVS ---
Subjective Subjective/Hospital Course: doing well no acute issues Objective Vital Signs / I&O: Vital Signs 06/06/18 23:41 06/07/18 00:50 06/07/18 04:00 Temperature 98.1 F Pulse Rate 71 76 67 Respiratory Rate 18 Blood Pressure 149/58 H Pulse Oximetry 99 06/07/18 04:45 06/07/18 08:00 06/07/18 12:00 Temperature 98.2 F 97.7 F 98.5 F Pulse Rate 71 79 67 Respiratory Rate 18 20 16 Blood Pressure 161/80 H 168/82 H 134/62 Pulse Oximetry 98 99 100 06/07/18 16:00 06/07/18 19:26 Temperature 98.4 F Pulse Rate 76 73 Respiratory Rate 20 18 Blood Pressure 158/71 H 154/57 H Pulse Oximetry 100 97 Intake & Output 06/07/18 06/07/18 06/08/18 06:59 18:59 06:59 Intake Total 1420 / 1420 Output Total 600 / 600 225 / 225 Balance 820 / 820 -225 / -225 Weight 75.8 kg Intake: Oral 1420 / 1420 Output: Urine 600 / 600 225 / 225 Other: # Voids 1 9 # Incontinent Voids 1 Date of Last Bowel Movement 06/05/18 06/05/18 06/05/18 Physical Exam: no change in neuro exam Laboratory Results - last 24 hr 06/07/18 12:07 Blood Type A Positive Blood Type Recheck Required Antibody Screen Negative Assessment and Plan - Assessment (1) Carotid stenosis, symptomatic, with infarction Code(s): I63.239 - Cerebral infarction due to unspecified occlusion or stenosis of unspecified carotid artery Status: Acute - Plan Severe symptomatic right carotid artery stenosis Acute versus subacute right hemispheric stroke Right CEA in am Pawan Alexis MD [facility] [phone]
[2018-06-08] MEDS ORDERED: Chlorhexidine Gluconate 2% 1 Pack (2 Cloths) TOPICAL ONE (00:51)
[2018-06-08] MEDS ORDERED: Sodium Chlor 0.9% Inj 500 ML IV.SIG SCH (01:00)
[2018-06-08 03:40] LABS: Baso % (Auto) 1.3 % (0.0-2.0); Eos # (Auto) 0.2 th/mm3 (0.0-0.4); Eos % (Auto) 5.7 % (0.0-4.0); Hematocrit 27.6 % (35.0-46.0); Hemoglobin 9.6 gm/dL (11.6-15.3); Lymph # (Auto) 0.8 th/mm3 (1.0-4.8); Lymph % (Auto) 21.4 % (9.0-44.0); Mean Corpuscular HGB Conc 34.9 % (32.0-36.0); Mean Corpuscular Hemoglobin 31.6 pg (27.0-34.0); Mean Corpuscular Volume 90.7 fL (80.0-100.0); Mean Platelet Volume 7.9 fL (7.0-11.0); Mono # (Auto) 0.3 th/mm3 (0.0-0.9); Mono % (Auto) 8.2 % (0.0-8.0); Neut # (Auto) 2.3 th/mm3 (1.8-7.7); Neut % (Auto) 63.4 % (16.0-70.0); Platelet Count 136 th/mm3 (150-450); Red Blood Count 3.05 mil/mm3 (4.00-5.30); Red Cell Distribution Width 18.5 % (11.6-17.2); White Blood Count 3.6 th/mm3 (4.0-11.0)
[2018-06-08 03:47] LABS: Prothrombin Time 10.3 sec (9.8-11.6)
[2018-06-08 04:02] LABS: Alanine Aminotransferase 12 U/L (10-53); Albumin 3.2 g/dL (3.4-5.0); Anion Gap 7 meq/L (5-15); Aspartate Aminotransferase 14 U/L (15-37); Blood Urea Nitrogen 6 mg/dL (7-18); Calcium 8.5 mg/dL (8.5-10.1); Carbon Dioxide 28.1 meq/L (21.0-32.0); Chloride 104 meq/L (98-107); Glomerular Filtration Rate 60 mL/min (>89); Glucose,Random 89 mg/dL (74-106); Potassium 3.2 meq/L (3.5-5.1); Sodium 139 meq/L (136-145)
[2018-06-08 04:04] LABS: Alkaline Phosphatase 97 U/L (45-117); Total Protein 6.4 g/dL (6.4-8.2)
[2018-06-08] MEDS ORDERED: Heparin 10,000 UNITS/10 ML Vial (for IV use) ONE ×2 (06:18→06:23)
[2018-06-08] MEDS ORDERED: Protamine Sulfate Inj 50 MG/5 ML Vial ONE ×2 (06:18→06:23)
[2018-06-08] MEDS ORDERED: Gelatin Size 100 Topical Foam ONE (06:18)
[2018-06-08] MEDS ORDERED: ceFAZolin 1 GM Premix Inj 0 GM/0 ML PIGGYBACK IV.SIG ONE (06:18)
[2018-06-08] MEDS ORDERED: Thrombin Topical 20,000 UNIT Spray Kit TOPICAL ONE ×2 (06:19→06:24)
[2018-06-08] MEDS ORDERED: Heparin/NS PF Inj 0 ML ONE (06:19)
[2018-06-08] MEDS: Metoprolol Tartrate 25 MG Tablet PO SCH ×2 (06:20→21:00)
[2018-06-08] MEDS ORDERED: ceFAZolin 1 GM Premix Inj 1 GM/50 ML PIGGYBACK IV.SIG ONE ×2 (06:23→07:53)
[2018-06-08] MEDS ORDERED: Heparin/NS PF Inj 500 ML ONE (06:24)
--- NOTE | 2018-06-08 11:09 | P.OP ---
Preoperative Diagnosis: Symptomatic right carotid artery stenosis Postoperative Diagnosis: Symptomatic right carotid artery stenosis Date of procedure: 06/08/18 Procedure: Right carotid artery endarterectomy with pericardial patch angioplasty Anesthesia: GETA Surgeon: Pawan Alexis MD Estimated blood loss (mL): 10 Operation and Findings: Findings 90% stenosis of the right internal carotid artery. There was treated using carotid artery endarterectomy with pericardial patch angioplasty. I used an Bude shunt my total clamp time was less than 1 minute. Description of the procedure The patient was taken to the operating room, laid supine on the OR table. After general trach anesthesia, the patient was prepped and draped in the standard sterile fashion. Timeout was called with all members in the OR in agreement. An incision was made anterior to the right sternocleidomastoid. Dissection was taken down through the subcutaneous tissues electrocautery. The carotid sheath was entered. Facial vein identified ligated and divided. The common carotid artery the external carotid artery internal carotid artery and superior thyroid artery were dissected and encircled Silastic loop. Ansa cervicalis vagus nerve and hypoglossal nerve identified and protected throughout the whole procedure. The patient was heparinized. Proximal distal control was obtained. An arteriotomy was created in the common carotid artery that extended into the internal carotid artery. Shunt was placed to establish flow from the common carotid artery to the internal carotid artery. Endarterectomy was performed. Fine-tuning was also performed to remove fine debris. The artery was repaired using a pericardial patch that was cut to appropriate length and secured using a 6-0 Prolene suture in the running fashion. The shunt was removed and all vessels were flushed. Suture line was completed. Hemostasis achieved. A #19 SIMRAN drain was placed into the wound and brought through the skin using a different stab wound. The drain was secured using nylon suture. The wound was closed in multiple layers using a Vicryl suture followed by Monocryl suture. Sterile dressing was applied. The patient tolerated the procedure well and was taken to recovery unit in stable condition. She was moving all extremities with no new neurological deficits. Her tongue was midline.
[2018-06-08] MEDS ORDERED: fentaNYL Citrate Inj 100 MCG/2 ML Ampul ONE ×2 (11:18)
--- NOTE | 2018-06-08 13:37 | P.CONCC ---
History of Present Illness Service: Critical care medicine Consult date: 06/08/18 Requesting Physician: Pawan Alexis Reason for Consult: Critical care management Primary Care Provider: UNKNOWN Chief Complaint: Carotid stenosis History of Present Illness: This is a 73-year-old female. Date of admission 06/03/2018. Date of consult 06/08/2018. Past medical history includes well-differentiated invasive ductal carcinoma,T2 N0 (i+), estrogen receptor 99%, progesterone receptor 99%, HER2 0, Ki-67 12 under the care of Dr. Guzman, and she was previously treated with letrozole and Verzenio. Her history includes recent right parietal CVA, anxiety, essential hypertension, hyperlipidemia, prior tobacco use, gait and balance disorder with frequent falls, osteopenia. She originally presented to [facility] 06/03 with frequent falls. During her workup, she did have significant carotid stenosis right-sided 90% left-sided 70%. She is seen by neurology Dr. Sagastume in vascular surgery. MRI of the brain revealed acute to subacute right parietal CVA. Right frontal bony metastases. Today, patient underwent a right carotid enterectomy with angiopatch by vascular surgery. 2100 crystalloid. 100 cc EBL. 150 cc urine output. Patient has a history of Delfina anesthesia and is currently slowly becoming more to her baseline according to daughter at bedside. She is bradycardic but hemodynamically stable. Review of Systems Constitutional: Reports weakness, Denies anorexia, Denies body ache(s), Denies chills, Denies headache(s) Eyes: Denies blind spots, Denies blurry vision Ears, Nose, Mouth, and Throat: Denies abnormal hearing, Denies bleeding gums, Denies bad breath Cardiovascular: Denies chest pain, Denies chest pain at rest Respiratory: Denies change in phlegm color, Denies chest congestion, Denies cough Gastrointestinal: Denies abdominal pain, Denies belching Genitourinary: Denies abnormal periods, Denies abnormal vaginal bleeding Musculoskeletal: Reports abnormal walking, Denies back pain, Denies tingling Skin/Breast: Denies bleeding lesions Neurologic: Denies abnormal hearing, Denies abnormal movements, Denies abnormal speech Psychiatric: Denies abnormal sleep pattern, Denies anxiety, Denies depression Endocrine: Denies cold intolerance Hematologic/Lymphatic: Denies easy bleeding, Denies easy bruising Allergic/Immunologic: Denies GI upset with certain foods PMFSH - History History Provided By: Patient, Medical Record - Medical History Medical History: Medical History (Last Reviewed 06/08/18 @ 09:12 by Miriam Cerrato) Anxiety Bone cancer Breast cancer [place] Hypercholesteremia Hypertension Stomach cancer - Surgical History Surgical History: Surgical History (Last Updated 06/08/18 @ 13:49 by Edwin Crockett MD) History of colonoscopy H/O lumpectomy History of cholecystectomy - Family History Family History: Family History (Last Updated 06/08/18 @ 13:49 by Edwin Crockett MD) Father Diabetes mellitus - Tobacco History Second Hand Smoke Exposure: No Tobacco Use In Past 30 Days: No Smoking Status: Former smoker Tobacco Type: Cigarettes - Alcohol History How Often Do You Have a Drink Containing Alcohol: Never - Substance Use History Substance History: No History of Abuse - Travel History Recent Travel in the [facility] Within the Last 8 Weeks: No Recent Travel Out of the Country Within the Last 8 Weeks: No - Immunization History Tetanus Immunization: Unsure Hx Influenza Vaccine This Season: Unable to Assess Medications and Allergies Active Medications: Active Medications Acetaminophen (Tylenol) 650 mg PO Q4H PRN PRN Reason: HEADACHE Last Admin: 06/06/18 17:22 Dose: 650 mg Aspirin (Aspirin) 325 mg PO DAILY TYLER Last Admin: 06/07/18 08:20 Dose: 325 mg Cyanocobalamin (Vitamin B12) 1,000 mcg PO DAILY TYLER Dextrose (D50w Vial) 50 ml IV.PUSH UNSCH PRN PRN Reason: per Hypoglycemic Protocol Glucagon (Glucagon Inj) 1 mg OTHER UNSCH PRN PRN Reason: per Hypoglycemic Protocol Lactated Ringer's (Lr 1000 Ml Inj) 1,000 mls @ 30 mls/hr IV.SIG .Q24H TYLER Stop: 06/09/18 00:59 Last Admin: 06/08/18 06:19 Dose: 30 mls/hr Sodium Chloride (Ns Inj) 500 mls @ 30 mls/hr IV.SIG .Q10H TYLER Last Admin: 06/08/18 05:11 Dose: Not Given Potassium Chloride (Kcl 10 Meq Premix Inj) 10 meq in 100 mls @ 100 mls/hr IV.SIG Q1H TYLER Stop: 06/08/18 16:44 Insulin Aspart (Novolog Insulin Correctional Sugar Inj) 0 unit SQ ACHS PRN; Protocol PRN Reason: Per Protocol Lorazepam (Ativan) 0.5 mg PO DAILY [facility] Last Admin: 06/07/18 08:21 Dose: 0.5 mg Metoprolol Tartrate (Lopressor) 25 mg PO DAILY [facility] Last Admin: 06/08/18 06:20 Dose: 25 mg Miscellaneous Information ([facility] Nursing Information) 0 each OTHER UNSCH PRN PRN Reason: SEE LABEL COMMENTS Stop: 06/09/18 11:11 Multivitamins (Theragran) 1 tab PO DAILY [facility] Last Admin: 06/07/18 08:21 Dose: 1 tab Ondansetron HCl (Zofran Inj) 4 mg IV.PUSH Q6H PRN PRN Reason: Nausea And Vomiting Pt:Verzenio( (Abemaciclib) 150 Mg) 0 each PO BID [facility] Potassium Chloride (K-Dur) 20 meq PO ONCE ONE Stop: 06/08/18 13:37 Pravastatin Sodium (Pravachol) 80 mg PO QPM [facility] Last Admin: 06/07/18 17:04 Dose: 80 mg Sodium Chloride (Baby [place] Saline 0.65% [place] Drop/[place]) 6 drops EACH NARE UNSCH PRN PRN Reason: dry nose Last Admin: 06/04/18 22:33 Dose: 6 drops Allergies Allergy/AdvReac Type Severity Reaction Status Date / Time No Known Allergies Allergy Verified 06/03/18 15:35 Home Medications Medication Instructions Recorded Confirmed Type lorazepam [Ativan] 0.5 mg PO DAILY 03/20/18 06/03/18 History simvastatin 40 mg PO QPM 03/20/18 06/03/18 History abemaciclib [Verzenio] 150 mg PO BID 05/30/18 06/03/18 History metoprolol tartrate 25 mg PO DAILY 05/30/18 06/03/18 History letrozole 2.5 mg PO DAILY 06/03/18 06/03/18 History Physical Exam Vital signs: Vital Signs 06/07/18 16:00 06/07/18 19:26 06/07/18 20:01 Temperature 98.4 F Pulse Rate 76 73 75 Respiratory Rate 20 18 Blood Pressure 158/71 H 154/57 H Pulse Oximetry 100 97 06/07/18 23:22 06/08/18 00:00 06/08/18 03:06 Temperature 98.3 F 98.3 F Pulse Rate 77 74 67 Respiratory Rate 18 16 Blood Pressure 147/72 H 142/64 H Pulse Oximetry 98 97 06/08/18 03:47 06/08/18 06:15 06/08/18 11:00 Temperature 97.6 F Pulse Rate 68 74 65 Respiratory Rate 22 Blood Pressure 140/60 Pulse Oximetry 96 06/08/18 11:15 06/08/18 11:30 06/08/18 11:45 Temperature Pulse Rate 65 62 66 Respiratory Rate 24 21 20 Blood Pressure 104/52 L 108/56 L Pulse Oximetry 97 98 98 06/08/18 12:00 06/08/18 12:15 06/08/18 12:30 Temperature Pulse Rate 58 L 60 53 L Respiratory Rate 14 15 17 Blood Pressure 111/56 L 118/59 L 121/59 L Pulse Oximetry 94 L 100 100 06/08/18 12:45 06/08/18 13:00 06/08/18 13:15 Temperature 98 F Pulse Rate 55 L 54 L 55 L Respiratory Rate 16 15 15 Blood Pressure 121/60 129/63 138/63 Pulse Oximetry 99 100 100 Intake & Output 06/07/18 06/08/18 06/08/18 18:59 06:59 18:59 Intake Total 1420 / 1420 300 / 300 Output Total 600 / 600 550 / 550 Balance 820 / 820 -250 / -250 Weight 76.2 kg Intake: Oral 1420 / 1420 300 / 300 Output: Urine 600 / 600 550 / 550 Other: # Voids 9 # Incontinent Voids 1 Date of Last Bowel Movement 06/05/18 06/05/18 # Bowel Movements 0 - Constitutional no acute distress - Routine HEENT Exam Head: Present: normocephalic, atraumatic Eye: Present: EOMI, PERRL ENT: Present: mucous membranes moist - Routine Neck Exam Present: supple, full ROM Comments: Right carotid enterectomy site clean dry and intact. SIMRAN in place with serosanguineous drainage. - Routine Respiratory Exam Present: CTA bilaterally. Absent: accessory muscle use, wheezes - Routine Cardiovascular Exam Present: S1, S2, bradycardia. Absent: murmur - Routine Abdominal Exam Present: soft, normoactive bowel sounds - Routine Exam Patient deferred: external exam, groin exam, perineal exam - Routine Extremities Exam Absent: cyanosis, clubbing, edema - Routine Skin Exam Present: intact, ecchymosis - Routine Neurological Exam Present: alert, oriented X3, CN II-XII intact - Detailed Neurological Exam: Coma Scale Eye Opening: Spontaneous Verbal Response: Confused Motor Response: Obey commands Gomez Coma Scale Total: 14 - Routine Psychiatric Exam Present: unable to assess - Urinary Catheter Management Indwelling Urethral Catheter Cath placed during this visit: yes Urethral indwelling: Yes Reason for continuing: Hourly intake/output Insertion date: 06/08/18 Insertion time: 08:05 Septic Shock Reassessment Septic shock perfusion: reassessment completed Assessment and Plan - Assessment and Plan Plan: Neuro/Psych: History of right parietal CVA Anxiety disorder Chronic benzodiazepine use Vitamin B12 deficiency Continue aspirin 325 mg p.o. daily. Currently on lorazepam 0.5 mg daily/home medication Acetaminophen 650p.o. every 6 hours as needed fever/pain Known history of "twilight" with anesthesia Continue cyanocobalamin 1000 mcg daily CV: Postop day #0 Right carotid artery endarterectomy with pericardial patch angioplasty Essential hypertension Hyperlipidemia Asymptomatic sinus bradycardia Bilateral carotid stenosis right 90% greater than left 70% On LR 30 cc an hour Currently metoprolol chart 25 mg daily. On pravastatin 80 mg daily for hyperlipidemia Resp: Nasal cannula to maintain saturations greater or equal to 90% Incentive spirometry while awake GI: Advance diet as tolerated No GI prophylax indicated Docusate sodium/senna 1 tablet twice daily for bowel regimen : Johnson catheter removed when clinically indicated Endo: Acute hyperglycemia critical illness Low TSH Sliding scale insulin aspart insulin Accu-Cheks AC/at bedtime maintain euglycemia/low Free T4 normal. Recheck TSH in 4-6 weeks Renal: Creatinine currently within normal limits Monitor urine output Accurate I's and O's Heme: History of breast cancer invasive ductal T2 N0 (i+), estrogen receptor 99%, progesterone receptor 99%, HER2 0, Ki-67 12 -Dr. Guzman Leukopenia normocytic anemia Thrombocytopenia Monitor CBC daily. Follow trends. No indication for transfusion of products at this time. Hematology following Holding letrozole 2.5 mg daily abenaciclib 150 mg twice daily ID: Monitor for signs and and symptomatology of infection Received intraoperative antibiotics FEN: Hypokalemia 30 mEq potassium chloride IV, 20 mEq p.o. times now. Recheck in a.m. MSK: Gait and balance disorder PT/OT evaluate and treat Access -Utilize peripherally. Left femoral arterial line placed by anesthesia 06/08 Prophylaxis -GI -pantoprazole DVT -SCD/pharmacological prophylaxis when okay with vascular surgery Level 2 consult- Code Status: Full code
[2018-06-08] MEDS: Acetaminophen 325 MG Tablet PO PRN (15:17)
[2018-06-08] MEDS: Potassium Chlor 10 mEq Premix 10 MEQ/100 ML PIGGYBACK IV.SIG SCH ×4 (15:18→21:11)
[2018-06-08] MEDS: HYDROmorphone PF Inj 0.5 MG/0.5 ML Syringe IV.PUSH PRN (17:31)
--- NOTE | 2018-06-08 19:19 | P.PNONC ---
Subjective Interval history: Resting comfortably in bed. S/p vascular procedure today. Objective Vital Signs/Intake & Output: Vital Signs 06/07/18 19:26 06/07/18 20:01 06/07/18 23:22 Temperature 98.4 F 98.3 F Pulse Rate 73 75 77 Respiratory Rate 18 18 Blood Pressure 154/57 H 147/72 H Pulse Oximetry 97 98 06/08/18 00:00 06/08/18 03:06 06/08/18 03:47 Temperature 98.3 F Pulse Rate 74 67 68 Respiratory Rate 16 Blood Pressure 142/64 H Pulse Oximetry 97 06/08/18 06:15 06/08/18 11:00 06/08/18 11:15 Temperature 97.6 F Pulse Rate 74 65 65 Respiratory Rate 22 24 Blood Pressure 140/60 Pulse Oximetry 96 97 06/08/18 11:30 06/08/18 11:45 06/08/18 12:00 Temperature Pulse Rate 62 66 58 L Respiratory Rate 21 20 14 Blood Pressure 104/52 L 108/56 L 111/56 L Pulse Oximetry 98 98 94 L 06/08/18 12:15 06/08/18 12:30 06/08/18 12:45 Temperature Pulse Rate 60 53 L 55 L Respiratory Rate 15 17 16 Blood Pressure 118/59 L 121/59 L 121/60 Pulse Oximetry 100 100 99 06/08/18 13:00 06/08/18 13:15 06/08/18 13:30 Temperature 98 F 98 F Pulse Rate 54 L 55 L 55 L Respiratory Rate 15 15 15 Blood Pressure 129/63 138/63 122/58 L Pulse Oximetry 100 100 100 06/08/18 13:50 Temperature 98 F Pulse Rate 58 L Respiratory Rate 15 Blood Pressure Pulse Oximetry 100 Intake & Output 06/08/18 06/08/18 06/09/18 06:59 18:59 06:59 Intake Total 300 / 300 Output Total 550 / 550 Balance -250 / -250 Weight 76.2 kg Intake: Oral 300 / 300 Output: Urine 550 / 550 Other: # Incontinent Voids 1 Date of Last Bowel Movement 06/05/18 # Bowel Movements 0 Result Diagrams: 06/08/18 03:00 06/08/18 03:00 Laboratory Results: Laboratory Results - last 24 hr 12/31/18 12/31/18 12/31/18 03:00 03:00 03:00 WBC 3.6 L RBC 3.05 L Hgb 9.6 L Hct 27.6 L MCV 90.7 MCH 31.6 MCHC 34.9 RDW 18.5 H Plt Count 136 L MPV 7.9 Neut % (Auto) 63.4 Lymph % (Auto) 21.4 [place] % (Auto) 8.2 H Eos % (Auto) 5.7 H Baso % (Auto) 1.3 Neut # (Auto) 2.3 Lymph # (Auto) 0.8 L [place] # (Auto) 0.3 Eos # (Auto) 0.2 Baso # (Auto) 0.0 WBC Differential . Differential Comment Auto diff final PT 10.3 INR 1.0 Sodium 139 Potassium 3.2 L Chloride 104 Carbon Dioxide 28.1 Anion Gap 7 BUN 6 L Creatinine 0.92 Estimated GFR 60 L POC Glucose Random Glucose 89 Calcium 8.5 Total Bilirubin 0.5 AST 14 L ALT 12 Alkaline Phosphatase 97 Total Protein 6.4 Albumin 3.2 L 06/08/18 11:46 WBC RBC Hgb Hct MCV MCH MCHC RDW Plt Count MPV Neut % (Auto) Lymph % (Auto) [place] % (Auto) Eos % (Auto) Baso % (Auto) Neut # (Auto) Lymph # (Auto) [place] # (Auto) Eos # (Auto) Baso # (Auto) WBC Differential Differential Comment PT INR Sodium Potassium Chloride Carbon Dioxide Anion Gap BUN Creatinine Estimated GFR POC Glucose 140 H Random Glucose Calcium Total Bilirubin AST ALT Alkaline Phosphatase Total Protein Albumin Medications: Active Medications Generic Name Dose Route Start Last Admin Trade Name Freq PRN Reason Stop Dose Admin Acetaminophen 650 mg 06/08/18 14:08 06/08/18 15:17 Tylenol PO 650 mg Q6H PRN Administration Fever/pain 1 through 5 Aspirin 325 mg 06/04/18 09:00 06/07/18 08:20 Aspirin PO 325 mg DAILY TYLER Administration Hydromorphone HCl 0.2 mg 06/08/18 15:06 06/08/18 17:31 Dilaudid Pf Inj IV.PUSH 0.2 mg Q4H PRN Administration BREAKTHROUGH PAIN Lactated Ringer's 1,000 mls @ 30 mls/hr 06/08/18 01:00 06/08/18 06:19 Lr 1000 Ml Inj IV.SIG 01/01/19 00:59 30 mls/hr .Q24H TYELR Administration Sodium Chloride 500 mls @ 30 mls/hr 06/08/18 01:00 06/08/18 05:11 Ns Inj IV.SIG Not Given .Q10H TYLER Lorazepam 0.5 mg 06/04/18 09:00 06/07/18 08:21 Ativan PO 0.5 mg DAILY TYLER Administration Metoprolol Tartrate 25 mg 06/06/18 09:00 06/08/18 06:20 Lopressor PO 25 mg DAILY TYLER Administration Multivitamins 1 tab 06/05/18 09:00 06/07/18 08:21 Theragran PO 1 tab DAILY TYLER Administration Pravastatin Sodium 80 mg 06/04/18 18:00 06/08/18 17:32 Pravachol PO 80 mg QPM TYLER Administration Sodium Chloride 6 drops 06/04/18 21:53 06/04/18 22:33 Baby [place] Saline 0.65% Arias Drop/Turner EACH NARE 6 drops UNSCH PRN Administration dry nose Objective Remarks: GENERAL: Well-nourished, well-developed patient. SKIN: Warm and dry. HEAD: Normocephalic. EYES: No scleral icterus. No injection or drainage. NECK: healing surgical incision RESPIRATORY: No accessory muscle use. GASTROINTESTINAL: Abdomen soft, non-tender, nondistended. EXTREMITIES: No edema. NEUROLOGICAL: No obvious focal deficit. Awake, alert, and oriented x3. PSYCHIATRIC: Appropriate mood and affect; insight and judgment normal. Assessment/Plan - Plan 1. CVA: s/p right-sided endarterectomy 2. Metastatic breast cancer: continue to hold medications until follow up in clinic with Dr. Phillips.
[2018-06-08] MEDS: LORazepam 0.5 MG Tablet PO SCH (20:59)
[2018-06-08] MEDS: Aspirin 325 MG Tablet PO SCH (20:59)
[2018-06-09] MEDS: Potassium Chlor 10 mEq Premix 10 MEQ/100 ML PIGGYBACK IV.SIG SCH (00:33)
[2018-06-09 04:51] LABS: Baso % (Auto) 0.1 % (0.0-2.0); Eos % (Auto) 0.8 % (0.0-4.0); Hematocrit 22.5 % (35.0-46.0); Hemoglobin 8.2 gm/dL (11.6-15.3); Lymph # (Auto) 0.6 th/mm3 (1.0-4.8); Mean Corpuscular Hemoglobin 32.7 pg (27.0-34.0); Mean Corpuscular Volume 90.1 fL (80.0-100.0); Mean Platelet Volume 7.9 fL (7.0-11.0); Mono # (Auto) 0.3 th/mm3 (0.0-0.9); Mono % (Auto) 7.7 % (0.0-8.0); Neut # (Auto) 3.3 th/mm3 (1.8-7.7); Neut % (Auto) 78.4 % (16.0-70.0); Platelet Count 106 th/mm3 (150-450); Red Cell Distribution Width 18.9 % (11.6-17.2); White Blood Count 4.2 th/mm3 (4.0-11.0)
[2018-06-09 05:11] LABS: Calcium 7.6 mg/dL (8.5-10.1); Carbon Dioxide 24.7 meq/L (21.0-32.0); Magnesium 2.2 mg/dL (1.5-2.5); Phosphorus 2.8 mg/dL (2.5-4.9); Potassium 4.1 meq/L (3.5-5.1)
[2018-06-09 05:22] LABS: Mean Corpuscular HGB Conc 36.3 % (32.0-36.0)
[2018-06-09 06:33] LABS: Ovalocytes 1+; Platelet Morphology Normal (Normal)
--- NOTE | 2018-06-09 08:51 | P.PNVS ---
Subjective Post Op Day #: 1 Procedure: R CEA Subjective/Hospital Course: doing well no acute issues Objective Vital Signs / I&O: Vital Signs 06/08/18 11:00 06/08/18 11:15 06/08/18 11:30 Temperature 97.6 F Pulse Rate 65 65 62 Respiratory Rate 22 24 21 Blood Pressure 104/52 L Pulse Oximetry 96 97 98 06/08/18 11:45 06/08/18 12:00 06/08/18 12:15 Temperature Pulse Rate 66 58 L 60 Respiratory Rate 20 14 15 Blood Pressure 108/56 L 111/56 L 118/59 L Pulse Oximetry 98 94 L 100 06/08/18 12:30 06/08/18 12:45 06/08/18 13:00 Temperature Pulse Rate 53 L 55 L 54 L Respiratory Rate 17 16 15 Blood Pressure 121/59 L 121/60 129/63 Pulse Oximetry 100 99 100 06/08/18 13:15 06/08/18 13:30 06/08/18 13:50 Temperature 98 F 98 F 98 F Pulse Rate 55 L 55 L 58 L Respiratory Rate 15 15 15 Blood Pressure 138/63 122/58 L Pulse Oximetry 100 100 100 06/08/18 14:00 06/08/18 16:00 06/08/18 17:00 Temperature 97.3 F L 98.4 F Pulse Rate 53 L 52 L 54 L Respiratory Rate 16 20 Blood Pressure 131/55 L 113/69 Pulse Oximetry 95 97 06/08/18 19:00 06/08/18 19:30 06/08/18 20:00 Temperature 97.9 F Pulse Rate 56 L 54 L Respiratory Rate 18 Blood Pressure 120/55 L Pulse Oximetry 95 95 06/08/18 20:45 06/08/18 23:00 06/08/18 23:20 Temperature 97.9 F Pulse Rate 55 L 53 L Respiratory Rate 16 Blood Pressure 121/49 L Pulse Oximetry 97 95 06/09/18 03:00 06/09/18 07:41 Temperature 98.5 F Pulse Rate 58 L Respiratory Rate 18 Blood Pressure 132/56 L Pulse Oximetry 95 95 Intake & Output 06/08/18 06/09/18 06/09/18 18:59 06:59 18:59 Intake Total 170 / 170 280 / 280 0 / 0 Output Total 270 / 270 Balance -100 / -100 280 / 280 0 / 0 Weight 81 kg Intake: IV 50 / 50 280 / 280 0 / 0 LR 1000 mL Inj 1,000 ML @ 30 0 / 0 mls/hr IV.SIG .Q24H [facility] Rx#: [id number] KCl 10 mEq Premix Inj 10 meq In 280 / 280 100 ml @ 100 mls/hr IV.SIG Q1H [facility]YLER Rx#:[id number] Oral 120 / 120 Output: Urine 250 / 250 Wound Drainage Right Neck Other: Date of Last Bowel Movement 06/05/18 # Bowel Movements 0 Exam: CN II - XII intact No neuroglial deficits Right neck wound CDI SIMRAN with SS output Laboratory Results - last 24 hr 06/08/18 06/09/18 06/09/18 11:46 04:28 04:28 WBC 4.2 RBC 2.50 L Hgb 8.2 L Hct 22.5 L MCV 90.1 MCH 32.7 MCHC 36.3 H RDW 18.9 H Plt Count 106 L MPV 7.9 Prelim Diff (Auto) Slide review pending Neut % (Auto) 78.4 H Lymph % (Auto) 13.0 [place] % (Auto) 7.7 Eos % (Auto) 0.8 Baso % (Auto) 0.1 Neut # (Auto) 3.3 Lymph # (Auto) 0.6 L [place] # (Auto) 0.3 Eos # (Auto) 0.0 Baso # (Auto) 0.0 WBC Differential . Diff Scan Auto diff confirmed Differential Comment . Platelet Estimate Low L Platelet Morphology Normal Ovalocytes 1+ H Sodium 134 L Potassium 4.1 D Chloride 102 Carbon Dioxide 24.7 Anion Gap 7 BUN 9 Creatinine 0.76 Estimated GFR 74 L POC Glucose 140 H Random Glucose 121 H Calcium 7.6 L D Phosphorus 2.8 Magnesium 2.2 Assessment and Plan - Assessment (1) Carotid stenosis, symptomatic, with infarction Code(s): I63.239 - Cerebral infarction due to unspecified occlusion or stenosis of unspecified carotid artery Status: Acute - Plan Severe symptomatic right carotid artery stenosis Acute versus subacute right hemispheric stroke S/P R CEA POD #1 DC Drain, Johnson, A line Stable for DC from VSx standpoint I will schedule FU and office will call patient with appointment [phone]
[2018-06-09] MEDS: Metoprolol Tartrate 25 MG Tablet PO SCH (09:44)
[2018-06-09] MEDS: LORazepam 0.5 MG Tablet PO SCH (09:44)
[2018-06-09] MEDS: Aspirin 325 MG Tablet PO SCH (09:44)
--- NOTE | 2018-06-09 11:36 | P.PNNEU ---
Subjective Active Medications: Active Medications Acetaminophen (Tylenol) 650 mg PO Q6H PRN PRN Reason: Fever/pain 1 through 5 Last Admin: 06/08/18 15:17 Dose: 650 mg Hydrocodone Bitart/Acetaminophen ([place] 5/325) 1 tab PO Q6H PRN PRN Reason: PAIN 6-10;IF UNABLE TO TAKE PO Last Admin: 06/08/18 19:54 Dose: 1 tab Albuterol (Albuterol Neb (Prn)) 2.5 mg NEB Q2HR NEB PRN PRN Reason: DYSPNEA Aspirin (Aspirin) 325 mg PO DAILY [facility] Last Admin: 06/09/18 09:44 Dose: 325 mg Cyanocobalamin (Vitamin B12) 1,000 mcg PO DAILY [facility] Last Admin: 06/09/18 09:44 Dose: 1,000 mcg Dextrose (D50w Vial) 50 ml IV.PUSH UNSCH PRN PRN Reason: per Hypoglycemic Protocol Glucagon (Glucagon Inj) 1 mg OTHER UNSCH PRN PRN Reason: per Hypoglycemic Protocol Hydromorphone HCl (Dilaudid Pf Inj) 0.2 mg IV.PUSH Q4H PRN PRN Reason: BREAKTHROUGH PAIN Last Admin: 06/08/18 17:31 Dose: 0.2 mg Sodium Chloride (Ns Inj) 500 mls @ 30 mls/hr IV.SIG .Q10H [facility] Last Admin: 06/08/18 05:11 Dose: Not Given Insulin Aspart (Novolog Insulin Correctional Sugar Inj) 0 unit SQ ACHS PRN; Protocol PRN Reason: Per Protocol Lorazepam (Ativan) 0.5 mg PO DAILY [facility] Last Admin: 06/09/18 09:44 Dose: 0.5 mg Metoprolol Tartrate (Lopressor) 25 mg PO DAILY [facility] Last Admin: 06/09/18 09:44 Dose: 25 mg Multivitamins (Theragran) 1 tab PO DAILY [facility] Last Admin: 06/09/18 09:44 Dose: 1 tab Ondansetron HCl (Zofran Inj) 4 mg IV.PUSH Q6H PRN PRN Reason: Nausea And Vomiting Pt:Verzenio( (Abemaciclib) 150 Mg) 0 each PO BID [facility] Pravastatin Sodium (Pravachol) 80 mg PO QPM [facility] Last Admin: 06/08/18 17:32 Dose: 80 mg Sodium Chloride (Baby [place] Saline 0.65% Arias Drop/[place]) 6 drops EACH NARE UNSCH PRN PRN Reason: dry nose Last Admin: 06/04/18 22:33 Dose: 6 drops Allergies/Adverse Reactions: Allergies Allergy/AdvReac Type Severity Reaction Status Date / Time No Known Allergies Allergy Verified 06/03/18 15:35 Physical Exam Vital signs: Vital Signs 06/08/18 11:45 06/08/18 12:00 06/08/18 12:15 Temperature Pulse Rate 66 58 L 60 Respiratory Rate 20 14 15 Blood Pressure 108/56 L 111/56 L 118/59 L Pulse Oximetry 98 94 L 100 06/08/18 12:30 06/08/18 12:45 06/08/18 13:00 Temperature Pulse Rate 53 L 55 L 54 L Respiratory Rate 17 16 15 Blood Pressure 121/59 L 121/60 129/63 Pulse Oximetry 100 99 100 06/08/18 13:15 06/08/18 13:30 06/08/18 13:50 Temperature 98 F 98 F 98 F Pulse Rate 55 L 55 L 58 L Respiratory Rate 15 15 15 Blood Pressure 138/63 122/58 L Pulse Oximetry 100 100 100 06/08/18 14:00 06/08/18 16:00 06/08/18 17:00 Temperature 97.3 F L 98.4 F Pulse Rate 53 L 52 L 54 L Respiratory Rate 16 20 Blood Pressure 131/55 L 113/69 Pulse Oximetry 95 97 06/08/18 19:00 06/08/18 19:30 06/08/18 20:00 Temperature 97.9 F Pulse Rate 56 L 54 L Respiratory Rate 18 Blood Pressure 120/55 L Pulse Oximetry 95 95 06/08/18 20:45 06/08/18 23:00 06/08/18 23:20 Temperature 97.9 F Pulse Rate 55 L 53 L Respiratory Rate 16 Blood Pressure 121/49 L Pulse Oximetry 97 95 06/09/18 03:00 06/09/18 07:00 06/09/18 07:41 Temperature 98.5 F 98.3 F Pulse Rate 58 L 65 Respiratory Rate 18 15 Blood Pressure 132/56 L 117/49 L Pulse Oximetry 95 95 95 06/09/18 08:00 06/09/18 10:54 Temperature 98.1 F Pulse Rate 60 Respiratory Rate 16 Blood Pressure 97/63 L Pulse Oximetry 95 98 Intake & Output 06/08/18 06/09/18 06/09/18 18:59 06:59 18:59 Intake Total 170 / 170 280 / 280 0 / 0 Output Total 270 / 270 450 / 450 Balance -100 / -100 -170 / -170 0 / 0 Weight 81 kg Intake: IV 50 / 50 280 / 280 0 / 0 LR 1000 mL Inj 1,000 ML @ 30 0 / 0 mls/hr IV.SIG .Q24H [facility] Rx#: [id number] KCl 10 mEq Premix Inj 10 meq In 280 / 280 100 ml @ 100 mls/hr IV.SIG Q1H [facility] Rx#:[id number] Oral 120 / 120 Output: Urine 250 / 250 Urine Amount (Catheter) 450 / 450 Indwelling Urethral Catheter 450 / 450 Wound Drainage Right Neck Other: Date of Last Bowel Movement 06/05/18 # Bowel Movements 0 Narrative: post op bp fine vff face sym moves all 4 ext well - Urinary Catheter Management Indwelling Urethral Catheter Cath placed during this visit: yes Urethral indwelling: Yes Reason for continuing: Hourly intake/output Insertion date: 06/08/18 Insertion time: 08:05 Objective Laboratory Results - last 24 hr 06/08/18 06/09/18 06/09/18 11:46 04:28 04:28 WBC 4.2 RBC 2.50 L Hgb 8.2 L Hct 22.5 L MCV 90.1 MCH 32.7 MCHC 36.3 H RDW 18.9 H Plt Count 106 L MPV 7.9 Prelim Diff (Auto) Slide review pending Neut % (Auto) 78.4 H Lymph % (Auto) 13.0 [place] % (Auto) 7.7 Eos % (Auto) 0.8 Baso % (Auto) 0.1 Neut # (Auto) 3.3 Lymph # (Auto) 0.6 L [place] # (Auto) 0.3 Eos # (Auto) 0.0 Baso # (Auto) 0.0 WBC Differential . Diff Scan Auto diff confirmed Differential Comment . Platelet Estimate Low L Platelet Morphology Normal Ovalocytes 1+ H Sodium 134 L Potassium 4.1 D Chloride 102 Carbon Dioxide 24.7 Anion Gap 7 BUN 9 Creatinine 0.76 Estimated GFR 74 L POC Glucose 140 H Random Glucose 121 H Calcium 7.6 L D Phosphorus 2.8 Magnesium 2.2 Review/Management - Review/Management Plan: imp r emir cva on asa ldl nl r ica >90% left >70 % have vascular see needs cea right first trop and echo neg mri t11 met known c and ls spine neg 06/09/18 echo nl HOLTER READ PAROXYSMAL AFIB AND I ASKED NURSE TO CALL MED TEAM THIS MNEEDS TO BE CLARIFIED WOULD NEED ANTICOAG IF ACCURATE as of now doing well postop on asa and statin
--- NOTE | 2018-06-09 13:29 | P.PNCC ---
Subjective Subjective Remarks/Hospital Course: This is a 73-year-old female. Date of admission 06/03/2018. Date of consult 06/08/2018. Past medical history includes well-differentiated invasive ductal carcinoma,T2 N0 (i+), estrogen receptor 99%, progesterone receptor 99%, HER2 0, Ki-67 12 under the care of Dr. Guzman, and she was previously treated with letrozole and Verzenio. Her history includes recent right parietal CVA, anxiety, essential hypertension, hyperlipidemia, prior tobacco use, gait and balance disorder with frequent falls, osteopenia. She originally presented to [facility] 06/03 with frequent falls. During her workup, she did have significant carotid stenosis right-sided 90% left-sided 70%. She is seen by neurology Dr. Sagastume in vascular surgery. MRI of the brain revealed acute to subacute right parietal CVA. Right frontal bony metastases. Today, patient underwent a right carotid enterectomy with angiopatch by vascular surgery. 2100 crystalloid. 100 cc EBL. 150 cc urine output. Patient has a history of Delfina anesthesia and is currently slowly becoming more to her baseline according to daughter at bedside. She is bradycardic but hemodynamically stable. Subjective 06/09/18: Afebrile. Currently resting in bed in no acute distress. Confused overnight. Noted issues with tach patient with pectus H fibrillation however documentation of extra ventricular beats which are PVCs or PACs. We will need to clarify with concrete wall grinder operator to read before committing to systemic anticoagulation Objective Vital Signs / I&O: Vital Signs 06/08/18 13:30 06/08/18 13:50 06/08/18 14:00 Temperature 98 F 98 F 97.3 F L Pulse Rate 55 L 58 L 53 L Respiratory Rate 15 15 16 Blood Pressure 122/58 L 131/55 L Pulse Oximetry 100 100 95 06/08/18 16:00 06/08/18 17:00 06/08/18 19:00 Temperature 98.4 F Pulse Rate 52 L 54 L 56 L Respiratory Rate 20 Blood Pressure 113/69 Pulse Oximetry 97 06/08/18 19:30 06/08/18 20:00 06/08/18 20:45 Temperature 97.9 F Pulse Rate 54 L Respiratory Rate 18 Blood Pressure 120/55 L Pulse Oximetry 95 95 97 06/08/18 23:00 06/08/18 23:20 06/09/18 03:00 Temperature 97.9 F 98.5 F Pulse Rate 55 L 53 L 58 L Respiratory Rate 16 18 Blood Pressure 121/49 L 132/56 L Pulse Oximetry 95 95 06/09/18 07:00 06/09/18 07:41 06/09/18 08:00 Temperature 98.3 F Pulse Rate 65 Respiratory Rate 15 Blood Pressure 117/49 L Pulse Oximetry 95 95 95 06/09/18 10:54 Temperature 98.1 F Pulse Rate 60 Respiratory Rate 16 Blood Pressure 97/63 L Pulse Oximetry 98 Intake & Output 06/08/18 06/09/18 06/09/18 18:59 06:59 18:59 Intake Total 170 / 170 280 / 280 0 / 0 Output Total 270 / 270 450 / 450 Balance -100 / -100 -170 / -170 0 / 0 Weight 81 kg Intake: IV 50 / 50 280 / 280 0 / 0 LR 1000 mL Inj 1,000 ML @ 30 0 / 0 mls/hr IV.SIG .Q24H [facility] Rx#: [id number] KCl 10 mEq Premix Inj 10 meq In 280 / 280 100 ml @ 100 mls/hr IV.SIG Q1H [facility] Rx#:[id number] Oral 120 / 120 Output: Urine 250 / 250 Urine Amount (Catheter) 450 / 450 Indwelling Urethral Catheter 450 / 450 Wound Drainage 20 / 20 Right Neck 20 / 20 Other: Date of Last Bowel Movement 06/05/18 # Bowel Movements 0 Result Diagrams: 06/09/18 04:28 06/09/18 04:28 Imaging: Carotid Doppler Study 06/03/18 00:00 CONCLUSION: 1. Right Internal Carotid Artery: Findings indicate near occlusion of the proximal internal carotid artery and possible complete occlusion of the mid and distal internal carotid artery. 2. Left Internal Carotid Artery: Findings indicate 50-69% stenosis. Head CT 06/03/18 15:49 CONCLUSION: 1. No focal or acute intracranial hemorrhage. 2. Bilateral cortical atrophy and chronic white matter changes. 3. 2 cm area of low density high along the right cerebral vertex. Given patient's history of breast carcinoma with bony metastatic disease, a metastatic deposit is a possibility versus subacute infarct. Therefore, recommend MRI of the brain with and without contrast for further evaluation. 4. Bony metastatic disease. . Hip X-Ray 06/03/18 15:49 CONCLUSION: No acute fracture or joint dislocation. Head MRI 06/03/18 17:31 CONCLUSION: 1. The area of abnormality on the recent CT scan correlates to an area of acute to subacute nonhemorrhagic infarction involving the right parietal lobe. 2. Small metastatic lesions involving the calvarium. 3. No MRI evidence to suggest metastatic disease to the brain parenchyma. Head CTA 06/04/18 00:00 CONCLUSION: 1. Unremarkable CTA of the brain. Neck CTA 06/04/18 00:00 CONCLUSION: 1. "String" sign is noted within the right proximal internal carotid artery indicating critical greater than 90% stenosis. Extensive calcified atherosclerotic plaque is also noted distal to the critical stenosis. 2. Greater than 70% stenosis involving the proximal left internal carotid artery secondary to extensive calcified atherosclerotic plaque formation. Cervical Spine MRI 06/04/18 07:52 CONCLUSION: Mild disc protrusions at multiple levels, none producing significant anatomic compromise at present. Lumbar Spine MRI 06/04/18 07:52 CONCLUSION: Mild disc disease in the lower lumbar spine. No significant anatomic compromise at present. Thoracic Spine MRI 06/04/18 07:52 CONCLUSION: 1. There is evidence of focal bony metastatic deposits in the body of T11 and T12. This correlates with patient's previous PET/CT of 02/02/2018. 2. No compression fracture injuries are demonstrated. 3. There are mild degenerative type changes also noted involving the thoracic spine. Head MRA 06/04/18 19:52 CONCLUSION: No significant stenosis or occlusion of the intracerebral arteries. Scattered mild stenoses are noted throughout the bilateral middle and posterior cerebral arteries. Objective Remarks: GENERAL: 73-year-old female resting in bed in no acute distress SKIN: Warm and dry. Ecchymosis over left shoulder. HEAD: Atraumatic. Normocephalic. EYES: Pupils equal and round. No scleral icterus. No injection or drainage. ENT: No nasal bleeding or discharge. Mucous membranes pink and moist. NECK: Trachea midline. No JVD. SIMRAN drain has been pulled. Incision site is clean dry and intact. CARDIOVASCULAR: Regular rate and rhythm. S1, S2. No S4. RESPIRATORY: No accessory muscle use. Clear to auscultation. Breath sounds equal bilaterally. GASTROINTESTINAL: Abdomen soft, non-tender, nondistended. Hepatic and splenic margins not palpable. MUSCULOSKELETAL: Extremities without clubbing, cyanosis, or edema. No obvious deformities. NEUROLOGICAL: Awake and alert. No obvious cranial nerve deficits. Motor grossly within normal limits. Five out of 5 muscle strength in the arms and legs. Normal speech. PSYCHIATRIC: Appropriate mood and affect; insight and judgment normal. Assessment and Plan - Assessment and Plan Plan: Neuro/Psych: History of right parietal CVA Anxiety disorder Chronic benzodiazepine use Vitamin B12 deficiency Continue aspirin 325 mg p.o. daily. Currently on lorazepam 0.5 mg daily/home medication Acetaminophen 650p.o. every 6 hours as needed fever/pain with as needed hydrocodone/acetaminophen and hydromorphone for breakthrough pain Known history of "twilight" with anesthesia Continue cyanocobalamin 1000 mcg daily CV: Postop day #1 Right carotid artery endarterectomy with pericardial patch angioplasty Essential hypertension Hyperlipidemia Asymptomatic sinus bradycardia Bilateral carotid stenosis right 90% greater than left 70% On LR 30 cc an hour. Currently off Currently metoprolol tartrate t 25 mg daily. Decrease to metoprolol succinate 12.5 mg daily On pravastatin 80 mg daily for hyperlipidemia Resp: Nasal cannula to maintain saturations greater or equal to 90% Incentive spirometry while awake GI: Advance diet as tolerated No GI prophylax indicated Docusate sodium/senna 1 tablet twice daily for bowel regimen : Johnson catheter removed when clinically indicated Endo: Acute hyperglycemia critical illness Low TSH Sliding scale insulin aspart insulin Accu-Cheks AC/at bedtime maintain euglycemia/low Free T4 normal. Recheck TSH in 4-6 weeks Renal: Creatinine currently within normal limits Monitor urine output Accurate I's and O's Heme: History of breast cancer invasive ductal T2 N0 (i+), estrogen receptor 99%, progesterone receptor 99%, HER2 0, Ki-67 12 -Dr. Guzman normocytic anemia Thrombocytopenia Monitor CBC daily. Follow trends. No indication for transfusion of products at this time. Hematology following Holding letrozole 2.5 mg daily abenaciclib 150 mg twice daily ID: Monitor for signs and and symptomatology of infection Received intraoperative antibiotics FEN: Hyponatremia Replace electrolytes as clinically indicated MSK: Gait and balance disorder PT/OT evaluate and treat Access -Utilize peripherally. Left femoral arterial line placed by anesthesia 06/08 Prophylaxis -GI -pantoprazole DVT -SCD/pharmacological prophylaxis when okay with vascular surgery Level 2 follow-up. Stable from critical care medicine point. Assign care to hospitalist in a.m. to 06/10. Okay to transfer to [facility]. Code Status: Full code
[2018-06-10] MEDS: LORazepam 0.5 MG Tablet PO SCH (09:14)
[2018-06-10] MEDS: Aspirin 325 MG Tablet PO SCH (09:14)
--- NOTE | 2018-06-10 10:33 | P.PNNEU ---
Subjective Active Medications: Active Medications Acetaminophen (Tylenol) 650 mg PO Q6H PRN PRN Reason: Fever/pain 1 through 5 Last Admin: 06/08/18 15:17 Dose: 650 mg Hydrocodone Bitart/Acetaminophen ([place] 5/325) 1 tab PO Q6H PRN PRN Reason: PAIN 6-10;IF UNABLE TO TAKE PO Last Admin: 06/10/18 00:45 Dose: 1 tab Albuterol (Albuterol Neb (Prn)) 2.5 mg NEB Q2HR NEB PRN PRN Reason: DYSPNEA Aspirin (Aspirin) 325 mg PO DAILY [facility] Last Admin: 06/10/18 09:14 Dose: 325 mg Cyanocobalamin (Vitamin B12) 1,000 mcg PO DAILY [facility] Last Admin: 06/10/18 09:15 Dose: 1,000 mcg Dextrose (D50w Vial) 50 ml IV.PUSH UNSCH PRN PRN Reason: per Hypoglycemic Protocol Glucagon (Glucagon Inj) 1 mg OTHER UNSCH PRN PRN Reason: per Hypoglycemic Protocol Hydralazine HCl (Apresoline Inj) 10 mg IV.PUSH Q4H PRN PRN Reason: SBP >160 Hydromorphone HCl (Dilaudid Pf Inj) 0.2 mg IV.PUSH Q4H PRN PRN Reason: BREAKTHROUGH PAIN Last Admin: 06/08/18 17:31 Dose: 0.2 mg Sodium Chloride (Ns Inj) 500 mls @ 30 mls/hr IV.SIG .Q10H [facility] Last Admin: 06/08/18 05:11 Dose: Not Given Insulin Aspart (Novolog Insulin [place] Sugar Inj) 0 unit SQ ACHS PRN; Protocol PRN Reason: Per Protocol Lorazepam (Ativan) 0.5 mg PO DAILY [facility] Last Admin: 06/10/18 09:14 Dose: 0.5 mg Metoprolol Succinate (Toprol Xl) 12.5 mg PO DAILY [facility] Last Admin: 06/10/18 09:15 Dose: 12.5 mg Miscellaneous (Pill Splitter) 1 each OTHER UNSCH PRN PRN Reason: PILL SPLITTER Multivitamins (Theragran) 1 tab PO DAILY [facility] Last Admin: 06/10/18 09:15 Dose: 1 tab Ondansetron HCl (Zofran Inj) 4 mg IV.PUSH Q6H PRN PRN Reason: Nausea And Vomiting Pt:Verzenio( (Abemaciclib) 150 Mg) 0 each PO BID [facility] Pravastatin Sodium (Pravachol) 80 mg PO QPM [facility] Last Admin: 06/09/18 18:06 Dose: 80 mg Sodium Chloride (Baby [place] Saline 0.65% [place] Drop/[place]) 6 drops EACH NARE UNSCH PRN PRN Reason: dry nose Last Admin: 06/04/18 22:33 Dose: 6 drops Allergies/Adverse Reactions: Allergies Allergy/AdvReac Type Severity Reaction Status Date / Time No Known Allergies Allergy Verified 06/03/18 15:35 Physical Exam Vital signs: Vital Signs 06/09/18 10:54 06/09/18 15:00 06/09/18 19:00 Temperature 98.1 F 98.1 F 98.1 F Pulse Rate 60 73 65 Respiratory Rate 16 16 16 Blood Pressure 97/63 L 123/60 173/72 H Pulse Oximetry 98 98 98 06/09/18 19:35 06/09/18 20:00 06/09/18 21:00 Temperature Pulse Rate 75 Respiratory Rate Blood Pressure 136/62 Pulse Oximetry 95 06/09/18 22:00 06/09/18 23:00 06/10/18 00:00 Temperature 98.2 F Pulse Rate 70 72 78 Respiratory Rate 16 Blood Pressure 109/54 L Pulse Oximetry 98 06/10/18 01:00 06/10/18 01:15 06/10/18 02:00 Temperature Pulse Rate 72 78 Respiratory Rate 16 Blood Pressure Pulse Oximetry 06/10/18 03:00 06/10/18 06:45 06/10/18 07:33 Temperature 98.2 F Pulse Rate 75 86 Respiratory Rate 16 16 Blood Pressure 174/74 H 145/89 H Pulse Oximetry 99 06/10/18 08:00 Temperature Pulse Rate Respiratory Rate Blood Pressure Pulse Oximetry 96 Intake & Output 06/09/18 06/10/18 06/10/18 18:59 06:59 18:59 Intake Total 1400 / 1400 480 / 480 Output Total 600 / 600 550 / 550 Balance 800 / 800 -70 / -70 Weight 75.5 kg Intake: IV 0 / 0 LR 1000 mL Inj 1,000 ML @ 30 0 / 0 mls/hr IV.SIG .Q24H [facility] Rx#: [id number] Oral 1400 / 1400 480 / 480 Output: Urine 550 / 550 Urine Amount (Catheter) 600 / 600 Indwelling Urethral Catheter 600 / 600 Wound Drainage 0 / 0 Right Neck 0 / 0 Other: # Voids 2 # Incontinent Voids 2 Narrative: vff face sym moves all well was up walking - Urinary Catheter Management Indwelling Urethral Catheter Cath placed during this visit: yes, but has since been removed by the nurse Urethral indwelling: Yes Reason for continuing: Decision to DC catheter Insertion date: 06/08/18 Insertion time: 08:05 Removal date: 06/09/18 Removal time: 14:00 Review/Management - Review/Management Plan: imp r emir cva on asa ldl nl r ica >90% left >70 % have vascular see needs cea right first trop and echo neg mri t11 met known c and ls spine neg 06/09/18 echo nl HOLTER READ PAROXYSMAL AFIB AND I ASKED NURSE TO CALL MED TEAM THIS MNEEDS TO BE CLARIFIED WOULD NEED ANTICOAG IF ACCURATE as of now doing well postop on asa and statin 06/10/18 doing well still need to clarify dr pruett read holter as AFIB? i put in consult stable neuro
--- NOTE | 2018-06-10 13:45 | MB ---
cc: Yonny Goetz MD DATE: 06/10/2018 REASON FOR CONSULTATION: Abnormal Holter monitor. HISTORY OF PRESENT ILLNESS: The patient is a 73-year-old white female with a history of metastatic breast cancer, hyperlipidemia, hypertension, who was initially admitted to the hospital after complaining of multiple falls. Head MRI reportedly showed small metastatic lesions involving the calvarium, as well as an area of acute to subacute infarction involving the right parietal lobe. She subsequently underwent right carotid endarterectomy after workup revealed high-grade right carotid disease. A Holter monitor was obtained reportedly showing paroxysmal atrial fibrillation. The patient denies palpitations, syncope, near syncope, chest pain, shortness of breath, pedal edema, paroxysmal nocturnal dyspnea. When she was having her frequent falls, she did feel moderately lightheaded prior to falling. She never has lost consciousness. PAST MEDICAL HISTORY: 1. Right breast cancer, status post lumpectomy 11/25/2014 as well as radiation therapy at that time. She is currently getting chemotherapy. Her breast cancer is metastatic to bone, including the calvarium, thoracic spine and pelvis. 2. Hyperlipidemia. 3. Hypertension. PAST SURGICAL HISTORY: 1. Cholecystectomy. 2. Right breast lumpectomy. 3. Right carotid endarterectomy. CURRENT CARDIAC MEDICATIONS: 1. Aspirin 325 mg p.o. daily. 2. Toprol XL 12.5 mg p.o. daily. 3. Pravastatin 80 mg p.o. at bedtime. ALLERGIES: NO KNOWN DRUG ALLERGIES. FAMILY HISTORY: Noncontributory. SOCIAL HISTORY: The patient quit smoking many years ago. She denies alcohol abuse. REVIEW OF SYSTEMS: As in the history of present illness, otherwise negative or noncontributory. She also currently denies headache, abdominal pain, melena, dyspepsia, bright red blood per rectum. PHYSICAL EXAMINATION: VITAL SIGNS: Her blood pressure 145/89 with a pulse of 65, respirations 20. GENERAL: She is a well-developed, well-nourished white female, in no acute distress. NECK: Jugular venous pressure is normal. Carotid pulses are 2+ bilaterally and without bruits. CHEST: Reveals diminished breath sounds at the bases. CARDIAC: She has a regular rhythm and rate with a grade 1/6 systolic murmur heard along the left sternal border. No gallop is audible. ABDOMEN: She has a soft, nontender abdomen. Bowel sounds are present. There is no definite hepatosplenomegaly. EXTREMITIES: Reveal no clubbing, cyanosis or edema. DIAGNOSTIC DATA: EKG from 06/07/2018 shows sinus rhythm, normal EKG. LABORATORY DATA: Includes WBC 4.2, hemoglobin 8.2, platelets 106. Potassium 4.1, BUN 9, creatinine 0.76. Troponin less than 0.02. IMPRESSION: Overall stable cardiac status in a 73-year-old white female with a history of metastatic breast cancer, hyperlipidemia, hypertension, admitted status post a number of falls, now status post right carotid endarterectomy. A head MRI also apparently shows evidence for acute or subacute infarction of the right parietal lobe. I have been asked to see the patient regarding atrial fibrillation reported on Holter monitoring. Her Holter monitor has been reviewed. The few salvos of atrial arrhythmia appear more consistent with atrial tachycardia rather than atrial fibrillation. She is asymptomatic with the atrial tachycardia. Left ventricular function by echocardiogram this admission is normal. RECOMMENDATIONS: 1. As her Holter monitor appears to show atrial tachycardia rather than atrial fibrillation, would not recommend anticoagulation therapy. Would continue daily aspirin and Toprol XL. 2. Will follow up as needed. MD KAMERON Hanley/greta , 01:22 PM , 01:30 PM MTDZac
--- NOTE | 2018-06-10 17:20 | P.PNIM ---
Subjective Interval history: Nursing denies any acute issues overnight. Patient herself denies any focal weakness. She does verbalize concern about being placed on a blood thinner and bleeding. Physical Exam Vital signs: Vital Signs 06/09/18 19:00 06/09/18 19:35 06/09/18 20:00 Temperature 98.1 F Pulse Rate 65 Respiratory Rate 16 Blood Pressure 173/72 H 136/62 Pulse Oximetry 98 95 06/09/18 21:00 06/09/18 22:00 06/09/18 23:00 Temperature Pulse Rate 75 70 72 Respiratory Rate Blood Pressure Pulse Oximetry 06/10/18 00:00 06/10/18 01:00 06/10/18 01:15 Temperature 98.2 F Pulse Rate 78 72 Respiratory Rate 16 16 Blood Pressure 109/54 L Pulse Oximetry 98 06/10/18 02:00 06/10/18 03:00 06/10/18 06:45 Temperature 98.2 F Pulse Rate 78 75 86 Respiratory Rate 16 16 Blood Pressure 174/74 H Pulse Oximetry 99 06/10/18 07:00 06/10/18 07:33 06/10/18 08:00 Temperature Pulse Rate 68 Respiratory Rate Blood Pressure 145/89 H Pulse Oximetry 96 06/10/18 11:00 06/10/18 11:01 06/10/18 15:00 Temperature 98.4 F 98.4 F Pulse Rate 76 76 Respiratory Rate 18 20 20 Blood Pressure 148/76 H 136/75 Pulse Oximetry 99 96 Intake & Output 06/09/18 06/10/18 06/10/18 18:59 06:59 18:59 Intake Total 1400 / 1400 480 / 480 Output Total 600 / 600 550 / 550 Balance 800 / 800 -70 / -70 Weight 75.5 kg Intake: IV 0 / 0 LR 1000 mL Inj 1,000 ML @ 30 0 / 0 mls/hr IV.SIG .Q24H [facility] Rx#: [id number] Oral 1400 / 1400 480 / 480 Output: Urine 550 / 550 Urine Amount (Catheter) 600 / 600 Indwelling Urethral Catheter 600 / 600 Wound Drainage 0 / 0 Right Neck 0 / 0 Other: # Voids 2 # Incontinent Voids 2 Narrative: Heart sounds regular rate and rhythm Clear lungs bilaterally, unlabored breathing No lower extremity edema 5/5 proximal upper and lower extremity strength including fist panel coverer No facial droop, no slurred speech Extraocular motions intact Pupils equal round reactive bilaterally Tongue protrudes in midline upon prompting - Urinary Catheter Management Indwelling Urethral Catheter Cath placed during this visit: yes, but has since been removed by the nurse Urethral indwelling: Yes Reason for continuing: Decision to DC catheter Insertion date: 06/08/18 Insertion time: 08:05 Removal date: 06/09/18 Removal time: 14:00 Results - Labs CBC & Chem 7: 06/09/18 04:28 06/09/18 04:28 Assessment and Plan - Plan 73-year-old white female with left upper extremity weakness. Stroke workup demonstrated significant bilateral carotid stenosis. Bilateral carotid stenosis S/P right carotid endarterectomy with pericardial patch angioplasty -Aspirin, Lipitor Hypertension -Lopressor -Clarified with cardiology, Holter shows atrial tachycardia, not A. fib, no anticoagulation needed Hyponatremia resolved Discharge Planning: cleared for dc/ awaiting placement
[2018-06-10] MEDS: HYDROmorphone PF Inj 0.5 MG/0.5 ML Syringe IV.PUSH PRN (20:24)
--- NOTE | 2018-06-11 08:05 | P.PNONC ---
Subjective Interval history: Patient status post right carotid endarterectomy. She denies any headache or dizziness. She denies any focal weakness. She denies any bone pain. She stated that her buttock area a little sore from laying in bed. She is eager to go home. Objective Vital Signs/Intake & Output: Vital Signs 06/10/18 11:00 06/10/18 11:01 06/10/18 15:00 Temperature 98.4 F 98.4 F Pulse Rate 76 76 Respiratory Rate 18 20 20 Blood Pressure 148/76 H 136/75 Pulse Oximetry 99 96 06/10/18 19:00 06/10/18 20:00 06/10/18 23:00 Temperature 98.5 F 98.3 F Pulse Rate 76 76 Respiratory Rate 18 20 Blood Pressure 160/73 H 142/77 H Pulse Oximetry 97 96 96 06/11/18 03:00 06/11/18 04:00 Temperature 98.5 F Pulse Rate 79 67 Respiratory Rate 20 Blood Pressure 139/72 Pulse Oximetry 96 Intake & Output 06/10/18 06/11/18 06/11/18 18:59 06:59 18:59 Intake Total 960 / 960 480 / 480 Output Total 650 / 650 700 / 700 Balance 310 / 310 -220 / -220 Weight 75.5 kg Intake: Oral 960 / 960 480 / 480 Output: Urine 650 / 650 700 / 700 Other: Date of Last Bowel Movement 06/11/18 # Bowel Movements 1 Result Diagrams: 06/09/18 04:28 06/09/18 04:28 Medications: Active Medications Generic Name Dose Route Start Last Admin Trade Name Freq PRN Reason Stop Dose Admin Acetaminophen 650 mg 06/08/18 14:08 06/08/18 15:17 Tylenol PO 650 mg Q6H PRN Administration Fever/pain 1 through 5 Hydrocodone Bitart/Acetaminophen 1 tab 06/08/18 15:05 06/10/18 00:45 [place] 5/325 PO 1 tab Q6H PRN Administration PAIN 6-10;IF UNABLE TO TAKE PO Aspirin 325 mg 06/04/18 09:00 06/10/18 09:14 Aspirin PO 325 mg DAILY [facility] Administration Cyanocobalamin 1,000 mcg 06/08/18 09:00 06/10/18 09:15 Vitamin B12 PO 1,000 mcg DAILY [facility] Administration Hydromorphone HCl 0.2 mg 06/08/18 15:06 06/10/18 20:24 Dilaudid Pf Inj IV.PUSH 0.2 mg Q4H PRN Administration BREAKTHROUGH PAIN Sodium Chloride 500 mls @ 30 mls/hr 06/08/18 01:00 06/08/18 05:11 Ns Inj IV.SIG Not Given .Q10H [facility] Lorazepam 0.5 mg 06/04/18 09:00 06/10/18 09:14 Ativan PO 0.5 mg DAILY [facility] Administration Metoprolol Succinate 12.5 mg 06/10/18 09:00 06/10/18 09:15 Toprol Xl PO 12.5 mg DAILY [facility] Administration Multivitamins 1 tab 06/05/18 09:00 06/10/18 09:15 Theragran PO 1 tab DAILY [facility] Administration Pravastatin Sodium 80 mg 06/04/18 18:00 06/10/18 17:02 Pravachol PO 80 mg QPM [facility] Administration Sodium Chloride 6 drops 06/04/18 21:53 06/04/18 22:33 Baby [place] Saline 0.65% Ari[place] Drop/[place] EACH NARE 6 drops UNSCH PRN Administration dry nose Objective Remarks: GENERAL: Well-nourished, well-developed patient. SKIN: Warm and dry. HEAD: Normocephalic. EYES: No scleral icterus. No injection or drainage. NECK: Supple, trachea midline. No JVD or lymphadenopathy. Right neck surgical site positive for ecchymosis but no active bleeding. LYMPHATIC: No adenopathy. CARDIOVASCULAR: Regular rate and rhythm without murmurs. RESPIRATORY: Breath sounds equal bilaterally. No accessory muscle use. GASTROINTESTINAL: Abdomen soft, non-tender, nondistended. EXTREMITIES: No cyanosis, or edema. MUSCULOSKELETAL: Adequate muscle tone. NEUROLOGICAL: No obvious focal deficit. Awake, alert, and oriented x3. PSYCHIATRIC: Appropriate mood and affect; insight and judgment normal. Assessment/Plan - Plan 73-year-old female with metastatic breast cancer with bony involvement on letrozole and Verzenio admitted after fall. 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 Workup showed more than 90% stenosis of right internal carotid artery and more than 70% stenosis of left internal carotid artery. 1. Patient status post right carotid endarterectomy. She tolerated procedure well. Her hemoglobin trended down to 9.9 likely due to blood loss. She has no new neurologic symptoms. Discussed with the patient that the carotid stenosis was a likely cause of her dizziness. 2. Can restart letrozole but will hold Verzenio at this time. 3. Continue supportive care. 4. Follow-up oncology clinic after discharge.
--- NOTE | 2018-06-11 08:22 | P.DS ---
Date of admission: 06/03/18 19:52 Primary care physician: UNKNOWN Brief History from admission: 73-year-old female with a past medical history significant for metastatic breast cancer currently undergoing chemotherapy and radiation, hypertension, hyperlipidemia and anxiety presents to the emergency department for the evaluation of multiple falls. The patient's daughter is bedside and states that her mother has been falling for approximately 5 days. When she falls she is unable to get up on her own. She has been having left lower extremity weakness since Friday however believes this is secondary to left buttock pain that she suffered from 1 of her falls. The patient has not been altered or confused in anyway, no facial droops. No focal neurologic deficits. No slurred speech. The patient denies any fevers or chills. No chest pain or short of. No abdominal pain. Positive nausea that is baseline secondary to chemotherapy. No emesis. DS: Medications - Discharge Medications Prescriptions: aspirin 325 mg PO DAILY #30 tab atorvastatin 40 mg PO QPM #30 tab lorazepam 0.5 mg PO PRN #3 tab DS: Summary - Time Spent with Patient Total time spent providing and/or coordinating discharge services: - Quality: VTE Deep Vein Thrombosis/Pulmonary Embolism Present on Admission: No Exam Vital signs: Vital Signs 06/10/18 11:00 06/10/18 11:01 06/10/18 15:00 Temperature 98.4 F 98.4 F Pulse Rate 76 76 Respiratory Rate 18 20 20 Blood Pressure 148/76 H 136/75 Pulse Oximetry 99 96 06/10/18 19:00 06/10/18 20:00 06/10/18 23:00 Temperature 98.5 F 98.3 F Pulse Rate 76 76 Respiratory Rate 18 20 Blood Pressure 160/73 H 142/77 H Pulse Oximetry 97 96 96 06/11/18 03:00 06/11/18 04:00 Temperature 98.5 F Pulse Rate 79 67 Respiratory Rate 20 Blood Pressure 139/72 Pulse Oximetry 96 Intake & Output 06/10/18 06/11/18 06/11/18 18:59 06:59 18:59 Intake Total 960 / 960 480 / 480 Output Total 650 / 650 700 / 700 Balance 310 / 310 -220 / -220 Weight 75.5 kg Intake: Oral 960 / 960 480 / 480 Output: Urine 650 / 650 700 / 700 Other: Date of Last Bowel Movement 06/11/18 # Bowel Movements 1 Narrative: Heart sounds regular rate and rhythm Clear lungs bilaterally, unlabored breathing No lower extremity edema 5/5 proximal upper and lower extremity strength including fist support teacher No facial droop, no slurred speech Extraocular motions intact Pupils equal round reactive bilaterally Tongue protrudes in midline upon prompting Alert and oriented x3 Results - Impressions ITS Impressions Carotid Doppler Study 06/03/18 00:00 CONCLUSION: 1. Right Internal Carotid Artery: Findings indicate near occlusion of the proximal internal carotid artery and possible complete occlusion of the mid and distal internal carotid artery. 2. Left Internal Carotid Artery: Findings indicate 50-69% stenosis. Head CT 06/03/18 15:49 CONCLUSION: 1. No focal or acute intracranial hemorrhage. 2. Bilateral cortical atrophy and chronic white matter changes. 3. 2 cm area of low density high along the right cerebral vertex. Given patient's history of breast carcinoma with bony metastatic disease, a metastatic deposit is a possibility versus subacute infarct. Therefore, recommend MRI of the brain with and without contrast for further evaluation. 4. Bony metastatic disease. . Hip X-Ray 06/03/18 15:49 CONCLUSION: No acute fracture or joint dislocation. Head MRI 06/03/18 17:31 CONCLUSION: 1. The area of abnormality on the recent CT scan correlates to an area of acute to subacute nonhemorrhagic infarction involving the right parietal lobe. 2. Small metastatic lesions involving the calvarium. 3. No MRI evidence to suggest metastatic disease to the brain parenchyma. Head CTA 06/04/18 00:00 CONCLUSION: 1. Unremarkable CTA of the brain. Neck CTA 06/04/18 00:00 CONCLUSION: 1. "String" sign is noted within the right proximal internal carotid artery indicating critical greater than 90% stenosis. Extensive calcified atherosclerotic plaque is also noted distal to the critical stenosis. 2. Greater than 70% stenosis involving the proximal left internal carotid artery secondary to extensive calcified atherosclerotic plaque formation. Cervical Spine MRI 06/04/18 07:52 CONCLUSION: Mild disc protrusions at multiple levels, none producing significant anatomic compromise at present. Lumbar Spine MRI 06/04/18 07:52 CONCLUSION: Mild disc disease in the lower lumbar spine. No significant anatomic compromise at present. Thoracic Spine MRI 06/04/18 07:52 CONCLUSION: 1. There is evidence of focal bony metastatic deposits in the body of T11 and T12. This correlates with patient's previous PET/CT of 02/02/2018. 2. No compression fracture injuries are demonstrated. 3. There are mild degenerative type changes also noted involving the thoracic spine. Head MRA 06/04/18 19:52 CONCLUSION: No significant stenosis or occlusion of the intracerebral arteries. Scattered mild stenoses are noted throughout the bilateral middle and posterior cerebral arteries. Discharge Plan - Discharge Disposition Patient Disposition: 03 Discharge to SNF - Discharge Condition Condition: Stable - Discharge Order Discharge Orders: Discharge Order (Routine); Ordered 06/11/18 Ordered By: Yovanny Cohen Vascular Surgery Clear for Discharge (Routine); Ordered 06/09/18 Ordered By: Pawan Alexis - Physicians Team Primary Care Provider: UNKNOWN, Attending Provider: Yovanny Cohen Other Providers: Chidi Clifton MD ; Anamika Krishnamurthy MD ; Joseph Ruiz ; Gaurav Escobar MD ; Edwin Crockett MD ; Yonny Goetz MD ; Kevin Phillips MD
[2018-06-11] MEDS: Aspirin 325 MG Tablet PO SCH (09:16)
[2018-06-11] MEDS: LORazepam 0.5 MG Tablet PO SCH (09:17)
[2018-06-11] MEDS ORDERED: LETROZOLE 2.5 MG PO SCH (11:00)
[2018-06-11] MEDS: HYDROmorphone PF Inj 0.5 MG/0.5 ML Syringe IV.PUSH PRN (20:34)
[2018-06-11] MEDS: hydrALAZINE HCl Inj 20 MG/ML Vial IV.PUSH PRN (22:16)
[2018-06-12] MEDS: hydrALAZINE HCl Inj 20 MG/ML Vial IV.PUSH PRN (03:17)
--- NOTE | 2018-06-12 07:22 | P.PNONC ---
Subjective Interval history: Patient denies any headache or dizziness. She denies any back pain. She is eager to go home. Objective Vital Signs/Intake & Output: Vital Signs 06/11/18 08:00 06/11/18 08:46 06/11/18 09:00 Temperature Pulse Rate 86 90 Respiratory Rate Blood Pressure Pulse Oximetry 97 06/11/18 09:03 06/11/18 09:12 06/11/18 10:00 Temperature 98.0 F Pulse Rate 85 90 Respiratory Rate 18 Blood Pressure 140/65 Pulse Oximetry 99 06/11/18 11:00 06/11/18 15:00 06/11/18 19:00 Temperature 98.6 F 98.2 F 98.7 F Pulse Rate 80 70 78 Respiratory Rate 18 16 16 Blood Pressure 131/58 L 179/74 H 167/84 H Pulse Oximetry 99 96 06/11/18 20:00 06/11/18 21:00 06/11/18 22:00 Temperature Pulse Rate 80 76 72 Respiratory Rate Blood Pressure Pulse Oximetry 96 06/11/18 22:17 06/11/18 23:00 06/12/18 00:00 Temperature 98.7 F Pulse Rate 74 86 Respiratory Rate 16 Blood Pressure 172/73 H 129/60 Pulse Oximetry 06/12/18 01:00 06/12/18 02:00 06/12/18 03:00 Temperature 98.6 F Pulse Rate 102 H 102 H 82 Respiratory Rate 16 Blood Pressure 101/56 L Pulse Oximetry 96 06/12/18 04:00 06/12/18 05:00 Temperature Pulse Rate 84 80 Respiratory Rate Blood Pressure Pulse Oximetry Intake & Output 06/11/18 06/12/18 06/12/18 18:59 06:59 18:59 Intake Total 480 / 480 Output Total 200 / 200 550 / 550 Balance -200 / -200 -70 / -70 Weight 75.5 kg Intake: Oral 480 / 480 Output: Urine 200 / 200 550 / 550 Other: # Incontinent Voids 1 Date of Last Bowel Movement 06/11/18 # Bowel Movements 0 Result Diagrams: 06/09/18 04:28 06/09/18 04:28 Laboratory Results: Laboratory Results - last 24 hr 06/12/18 03:33 POC Glucose 123 H Medications: Active Medications Generic Name Dose Route Start Last Admin Trade Name Freq PRN Reason Stop Dose Admin Acetaminophen 650 mg 06/08/18 14:08 06/08/18 15:17 Tylenol PO 650 mg Q6H PRN Administration Fever/pain 1 through 5 Hydrocodone Bitart/Acetaminophen 1 tab 06/08/18 15:05 06/10/18 00:45 [place] 5/325 PO 1 tab Q6H PRN Administration PAIN 6-10;IF UNABLE TO TAKE PO Aspirin 325 mg 06/04/18 09:00 06/11/18 09:16 Aspirin PO 325 mg DAILY TYLER Administration Cyanocobalamin 1,000 mcg 06/08/18 09:00 06/11/18 09:17 Vitamin B12 PO 1,000 mcg DAILY TYLER Administration Hydralazine HCl 10 mg 06/09/18 20:30 06/12/18 03:17 Apresoline Inj IV.PUSH 10 mg Q4H PRN Administration SBP >160 Hydromorphone HCl 0.2 mg 06/08/18 15:06 06/11/18 20:34 Dilaudid Pf Inj IV.PUSH 0.2 mg Q4H PRN Administration BREAKTHROUGH PAIN Sodium Chloride 500 mls @ 30 mls/hr 06/08/18 01:00 06/08/18 05:11 Ns Inj IV.SIG Not Given .Q10H TYLER Lorazepam 0.5 mg 06/04/18 09:00 06/11/18 09:17 Ativan PO 0.5 mg DAILY TYLER Administration Metoprolol Succinate 12.5 mg 06/10/18 09:00 06/11/18 09:17 Toprol Xl PO 12.5 mg DAILY TYLER Administration Multivitamins 1 tab 06/05/18 09:00 06/11/18 09:16 Theragran PO 1 tab DAILY TYLER Administration Pravastatin Sodium 80 mg 06/04/18 18:00 06/11/18 18:06 Pravachol PO 80 mg QPM TYLER Administration Sodium Chloride 6 drops 06/04/18 21:53 06/04/18 22:33 Baby [place] Saline 0.65% [place] Drop/[place] EACH NARE 6 drops UNSCH PRN Administration dry nose Objective Remarks: GENERAL: Well-nourished, well-developed patient. SKIN: Warm and dry. HEAD: Normocephalic. EYES: No scleral icterus. No injection or drainage. NECK: Supple, trachea midline. No JVD or lymphadenopathy. Right neck surgical site well-healed with no bleeding noted. LYMPHATIC: No adenopathy. CARDIOVASCULAR: Regular rate and rhythm without murmurs. RESPIRATORY: Breath sounds equal bilaterally. No accessory muscle use. GASTROINTESTINAL: Abdomen soft, non-tender, nondistended. EXTREMITIES: No cyanosis, or edema. MUSCULOSKELETAL: Adequate muscle tone. NEUROLOGICAL: No obvious focal deficit. Awake, alert, and oriented x3. PSYCHIATRIC: Appropriate mood and affect; insight and judgment normal. Assessment/Plan - Plan 73-year-old female with metastatic breast cancer with bony involvement on letrozole and Verzenio admitted after fall. 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 Workup showed more than 90% stenosis of right internal carotid artery and more than 70% stenosis of left internal carotid artery. 1. Patient status post right carotid endarterectomy. She tolerated procedure well. Her hemoglobin trended down lower likely due to operative blood loss. She has no new neurologic symptoms. Her dizziness has resolved since the procedure. 2. We will restart letrozole but continue to hold Verzenio at this time. 3. Continue supportive care. 4. Follow-up oncology clinic after discharge.
--- NOTE | 2018-06-12 07:41 | P.PNNEU ---
Subjective Active Medications: Active Medications Acetaminophen (Tylenol) 650 mg PO Q6H PRN PRN Reason: Fever/pain 1 through 5 Last Admin: 06/08/18 15:17 Dose: 650 mg Hydrocodone Bitart/Acetaminophen ([place] 5/325) 1 tab PO Q6H PRN PRN Reason: PAIN 6-10;IF UNABLE TO TAKE PO Last Admin: 06/10/18 00:45 Dose: 1 tab Albuterol (Albuterol Neb (Prn)) 2.5 mg NEB Q2HR NEB PRN PRN Reason: DYSPNEA Aspirin (Aspirin) 325 mg PO DAILY [facility] Last Admin: 06/11/18 09:16 Dose: 325 mg Cyanocobalamin (Vitamin B12) 1,000 mcg PO DAILY [facility] Last Admin: 06/11/18 09:17 Dose: 1,000 mcg Dextrose (D50w Vial) 50 ml IV.PUSH UNSCH PRN PRN Reason: per Hypoglycemic Protocol Glucagon (Glucagon Inj) 1 mg OTHER UNSCH PRN PRN Reason: per Hypoglycemic Protocol Hydralazine HCl (Apresoline Inj) 10 mg IV.PUSH Q4H PRN PRN Reason: SBP >160 Last Admin: 06/12/18 03:17 Dose: 10 mg Hydromorphone HCl (Dilaudid Pf Inj) 0.2 mg IV.PUSH Q4H PRN PRN Reason: BREAKTHROUGH PAIN Last Admin: 06/11/18 20:34 Dose: 0.2 mg Sodium Chloride (Ns Inj) 500 mls @ 30 mls/hr IV.SIG .Q10H [facility] Last Admin: 06/08/18 05:11 Dose: Not Given Insulin Aspart (Novolog Insulin Correctional Sugar Inj) 0 unit SQ ACHS PRN; Protocol PRN Reason: Per Protocol Lorazepam (Ativan) 0.5 mg PO DAILY [facility] Last Admin: 06/11/18 09:17 Dose: 0.5 mg Metoprolol Succinate (Toprol Xl) 12.5 mg PO DAILY [facility] Last Admin: 06/11/18 09:17 Dose: 12.5 mg Miscellaneous (Pill Splitter) 1 each OTHER UNSCH PRN PRN Reason: PILL SPLITTER Multivitamins (Theragran) 1 tab PO DAILY [facility] Last Admin: 06/11/18 09:16 Dose: 1 tab Ondansetron HCl (Zofran Inj) 4 mg IV.PUSH Q6H PRN PRN Reason: Nausea And Vomiting Patient Own (Medication:Letrozole) 0 each PO DAILY [facility] Pravastatin Sodium (Pravachol) 80 mg PO QPM [facility] Last Admin: 06/11/18 18:06 Dose: 80 mg Sodium Chloride (Baby [place] Saline 0.65% Arias Drop/[place]) 6 drops EACH NARE UNSCH PRN PRN Reason: dry nose Last Admin: 06/04/18 22:33 Dose: 6 drops Allergies/Adverse Reactions: Allergies Allergy/AdvReac Type Severity Reaction Status Date / Time No Known Allergies Allergy Verified 06/03/18 15:35 Physical Exam Vital signs: Vital Signs 06/11/18 08:00 06/11/18 08:46 06/11/18 09:00 Temperature Pulse Rate 86 90 Respiratory Rate Blood Pressure Pulse Oximetry 97 06/11/18 09:03 06/11/18 09:12 06/11/18 10:00 Temperature 98.0 F Pulse Rate 85 90 Respiratory Rate 18 Blood Pressure 140/65 Pulse Oximetry 99 06/11/18 11:00 06/11/18 15:00 06/11/18 19:00 Temperature 98.6 F 98.2 F 98.7 F Pulse Rate 80 70 78 Respiratory Rate 18 16 16 Blood Pressure 131/58 L 179/74 H 167/84 H Pulse Oximetry 99 96 06/11/18 20:00 06/11/18 21:00 06/11/18 22:00 Temperature Pulse Rate 80 76 72 Respiratory Rate Blood Pressure Pulse Oximetry 96 06/11/18 22:17 06/11/18 23:00 06/12/18 00:00 Temperature 98.7 F Pulse Rate 74 86 Respiratory Rate 16 Blood Pressure 172/73 H 129/60 Pulse Oximetry 06/12/18 01:00 06/12/18 02:00 06/12/18 03:00 Temperature 98.6 F Pulse Rate 102 H 102 H 82 Respiratory Rate 16 Blood Pressure 101/56 L Pulse Oximetry 96 06/12/18 04:00 06/12/18 05:00 Temperature Pulse Rate 84 80 Respiratory Rate Blood Pressure Pulse Oximetry Intake & Output 06/11/18 06/12/18 06/12/18 18:59 06:59 18:59 Intake Total 480 / 480 Output Total 200 / 200 550 / 550 Balance -200 / -200 -70 / -70 Weight 75.5 kg Intake: Oral 480 / 480 Output: Urine 200 / 200 550 / 550 Other: # Incontinent Voids 1 Date of Last Bowel Movement 06/11/18 # Bowel Movements 0 Narrative: knows mo and yr not day vff face sym 10/11 - Urinary Catheter Management Indwelling Urethral Catheter Cath placed during this visit: yes, but has since been removed by the nurse Urethral indwelling: Yes Reason for continuing: Decision to DC catheter Insertion date: 06/08/18 Insertion time: 08:05 Removal date: 06/09/18 Removal time: 14:00 Objective Laboratory Results - last 24 hr 06/12/18 03:33 POC Glucose 123 H Review/Management - Review/Management Plan: imp r emir cva on asa ldl nl r ica >90% left >70 % have vascular see needs cea right first trop and echo neg mri t11 met known c and ls spine neg 06/09/18 echo nl HOLTER READ PAROXYSMAL AFIB AND I ASKED NURSE TO CALL MED TEAM THIS MNEEDS TO BE CLARIFIED WOULD NEED ANTICOAG IF ACCURATE as of now doing well postop on asa and statin 06/10/18 doing well still need to clarify dr pruett read holter as AFIB? i put in consult stable neuro 06/12/18 cards says no afib stable neuro needs left cea in future ok dc by me to rehab
[2018-06-12] MEDS: Aspirin 325 MG Tablet PO SCH (08:55)
[2018-06-12] MEDS: LORazepam 0.5 MG Tablet PO SCH (08:55)
--- NOTE | 2018-06-12 09:42 | P.PNADD ---
Addendum to Inpatient Note Reason for Addendum: Additional Documentation Additional information: Patient awaiting insurance authorization for placement. No acute issues overnight per nursing. Grossly moves all 4 extremities spontaneously, following commands, awake, alert , no acute distress, dry motions intact Heart sounds regular rate rhythm, no murmurs Clear lungs bilaterally, labored breathing
[2018-06-13] MEDS: Aspirin 325 MG Tablet PO SCH (09:21)
[2018-06-13] MEDS: LORazepam 0.5 MG Tablet PO SCH (09:22)
--- NOTE | 2018-06-13 10:01 | P.PNADD ---
Addendum to Inpatient Note Reason for Addendum: Additional Documentation Additional information: Patient seen, feels great. Wants to go home if she could. Clear lungs bilaterally, unlabored breathing 2/6 ejection murmur No lower extremity edema 5/5 proximal upper and lower extremity gross strength including fist senior clinical research scientist no facial droop, no slurred speech, alert and oriented Awaiting placement
[2018-06-13] MEDS: Acetaminophen 325 MG Tablet PO PRN (17:55)
[2018-06-14] MEDS: Aspirin 325 MG Tablet PO SCH (09:07)
[2018-06-14] MEDS: LORazepam 0.5 MG Tablet PO SCH (09:07)
--- NOTE | 2018-06-14 10:47 | P.PNADD ---
Addendum to Inpatient Note Reason for Addendum: Additional Documentation Additional information: Patient denies any acute changes overnight. Tolerating p.o. well. Wanting to go home. Clear lungs bilaterally, unlabored breathing Heart sounds regular rate and rhythm Awake and alert No acute distress Reclining in bed Grossly intact motor function all 4 extremities No facial droop, no slurred speech, extraocular motions intact Awaiting placement
[2018-06-14] MEDS: Acetaminophen 325 MG Tablet PO PRN (13:27)
[2018-06-14] MEDS: Enoxaparin Inj 40 MG/0.4 ML Syringe SQ SCH (19:01)
[2018-06-15] MEDS: HYDROmorphone PF Inj 0.5 MG/0.5 ML Syringe IV.PUSH PRN (01:51)
--- NOTE | 2018-06-15 07:25 | P.PNONC ---
Subjective Interval history: Patient denies any headache or dizziness. She is awaiting discharge to rehab pending insurance approval. She denies any chest pain or palpitation. She has no shortness of breath or cough. She denies any bone pain or back pain. She has not started taking the letrozole yet. Objective Vital Signs/Intake & Output: Vital Signs 06/14/18 08:00 06/14/18 09:00 06/14/18 10:00 Temperature Pulse Rate 65 62 62 Respiratory Rate Blood Pressure Pulse Oximetry 98 06/14/18 11:00 06/14/18 12:00 06/14/18 15:00 Temperature 98.4 F 97.6 F Pulse Rate 77 64 64 Respiratory Rate 16 16 Blood Pressure 126/60 159/68 H Pulse Oximetry 99 99 06/14/18 19:20 06/14/18 20:00 06/14/18 23:24 Temperature 97.9 F 97.7 F Pulse Rate 64 78 Respiratory Rate 16 15 Blood Pressure 157/62 H 154/67 H Pulse Oximetry 99 99 100 06/15/18 03:36 06/15/18 07:00 Temperature 98.3 F Pulse Rate 67 58 L Respiratory Rate 15 Blood Pressure 152/67 H Pulse Oximetry 98 Intake & Output 06/14/18 06/15/18 06/15/18 18:59 06:59 18:59 Intake Total 1160 / 1160 480 / 480 Output Total 900 / 900 600 / 600 Balance 260 / 260 -120 / -120 Weight 74.5 kg Intake: Oral 1160 / 1160 480 / 480 Output: Urine 900 / 900 600 / 600 Other: # Voids 5 2 # Urine Diapers 2 Date of Last Bowel Movement 06/14/18 Result Diagrams: 06/09/18 04:28 06/09/18 04:28 Medications: Active Medications Generic Name Dose Route Start Last Admin Trade Name Freq PRN Reason Stop Dose Admin Acetaminophen 650 mg 06/08/18 14:08 06/14/18 13:27 Tylenol PO 650 mg Q6H PRN Administration Fever/pain 1 through 5 Hydrocodone Bitart/Acetaminophen 1 tab 06/08/18 15:05 06/14/18 03:20 [place] 5/325 PO 1 tab Q6H PRN Administration PAIN 6-10;IF UNABLE TO TAKE PO Aspirin 325 mg 06/04/18 09:00 06/14/18 09:07 Aspirin PO 325 mg DAILY TYLER Administration Cyanocobalamin 1,000 mcg 06/08/18 09:00 06/14/18 09:07 Vitamin B12 PO 1,000 mcg DAILY TYLER Administration Enoxaparin Sodium 40 mg 06/14/18 17:00 06/14/18 19:01 Lovenox Inj SQ 40 mg DAILY TYLER Administration Hydralazine HCl 10 mg 06/09/18 20:30 06/12/18 03:17 Apresoline Inj IV.PUSH 10 mg Q4H PRN Administration SBP >160 Hydromorphone HCl 0.2 mg 06/08/18 15:06 06/15/18 01:51 Dilaudid Pf Inj IV.PUSH 0.2 mg Q4H PRN Administration BREAKTHROUGH PAIN Sodium Chloride 500 mls @ 30 mls/hr 06/08/18 01:00 06/08/18 05:11 Ns Inj IV.SIG Not Given .Q10H TYLER Lorazepam 0.5 mg 06/04/18 09:00 06/14/18 09:07 Ativan PO 0.5 mg DAILY TYLER Administration Metoprolol Succinate 12.5 mg 06/10/18 09:00 06/14/18 09:07 Toprol Xl PO 12.5 mg DAILY TYLER Administration Multivitamins 1 tab 06/05/18 09:00 06/14/18 09:07 Theragran PO 1 tab DAILY TYLER Administration Ondansetron HCl 4 mg 06/03/18 20:51 06/13/18 14:43 Zofran Inj IV.PUSH 4 mg Q6H PRN Administration Nausea And Vomiting Pravastatin Sodium 80 mg 06/04/18 18:00 06/14/18 19:01 Pravachol PO 80 mg QPM TYLER Administration Sodium Chloride 6 drops 06/04/18 21:53 06/04/18 22:33 Baby [place] Saline 0.65% Arias Drop/[place] EACH NARE 6 drops UNSCH PRN Administration dry nose Objective Remarks: GENERAL: Well-nourished, well-developed patient. SKIN: Warm and dry. HEAD: Normocephalic. EYES: No scleral icterus. No injection or drainage. NECK: Supple, trachea midline. No JVD or lymphadenopathy. Right neck surgical site well-healed. No bleeding noted. No significant erythema. LYMPHATIC: No adenopathy. CARDIOVASCULAR: Regular rate and rhythm without murmurs. RESPIRATORY: Breath sounds equal bilaterally. No accessory muscle use. GASTROINTESTINAL: Abdomen soft, non-tender, nondistended. EXTREMITIES: No cyanosis, or edema. MUSCULOSKELETAL: Adequate muscle tone. NEUROLOGICAL: No obvious focal deficit. Awake, alert, and oriented x3. PSYCHIATRIC: Appropriate mood and affect; insight and judgment normal. Assessment/Plan - Plan 73-year-old female with metastatic breast cancer with bony involvement on letrozole and Verzenio admitted after fall. 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 Workup showed more than 90% stenosis of right internal carotid artery and more than 70% stenosis of left internal carotid artery. 1. Patient status post right carotid endarterectomy. She tolerated procedure well. She has no new neurologic symptoms. Her dizziness has resolved since the procedure. 2. Patient supposed to restart letrozole but she has not started taking it yet. I instructed her to take her home letrozole. We will continue to hold Verzenio at this time. 3. Continue supportive care. 4. I have discussed with her daughter over the phone. I have also discussed with nursing staff and patient is awaiting discharge to rehab pending insurance approval. 5. Follow-up oncology clinic after discharge.
[2018-06-15] MEDS: Enoxaparin Inj 40 MG/0.4 ML Syringe SQ SCH (08:37)
[2018-06-15] MEDS: LORazepam 0.5 MG Tablet PO SCH (08:37)
[2018-06-15] MEDS: Aspirin 325 MG Tablet PO SCH (08:38)
--- NOTE | 2018-06-15 10:22 | P.PNADD ---
Addendum to Inpatient Note Reason for Addendum: Additional Documentation Additional information: Patient seen at the bedside. Nursing denies any acute changes overnight Patient wanting to go home Clear lungs bilaterally, unlabored breathing Heart sounds regular rate and rhythm No lower extremity edema No facial droop, no slurred speech Moves all 4 extremities Awake and alert, no acute distress Awaiting placement
--- NOTE | 2018-06-16 07:38 | P.PNONC ---
Subjective Interval history: Patient has mild headache but no dizziness this morning. She denies any chest pain or shortness of breath. She still awaiting rehab placement. She has been ambulating with assistance. Objective Vital Signs/Intake & Output: Vital Signs 06/15/18 08:00 06/15/18 11:00 06/15/18 15:00 Temperature 97.3 F L 97.4 F L Pulse Rate 66 70 Respiratory Rate 16 16 Blood Pressure 125/61 134/60 Pulse Oximetry 99 100 99 06/15/18 19:00 06/15/18 21:25 06/15/18 23:00 Temperature 98.5 F Pulse Rate 67 67 70 Respiratory Rate 18 Blood Pressure 161/77 H Pulse Oximetry 95 06/16/18 03:00 06/16/18 04:16 Temperature 98.1 F Pulse Rate 68 79 Respiratory Rate 19 Blood Pressure 165/72 H Pulse Oximetry 96 Intake & Output 06/15/18 06/16/18 06/16/18 18:59 06:59 18:59 Intake Total 720 / 720 480 / 480 Output Total 600 / 600 425 / 425 Balance 120 / 120 55 / 55 Weight 74.5 kg Intake: Oral 720 / 720 480 / 480 Output: Urine 600 / 600 425 / 425 Other: # Voids 4 Result Diagrams: 06/09/18 04:28 06/09/18 04:28 Medications: Active Medications Generic Name Dose Route Start Last Admin Trade Name Freq PRN Reason Stop Dose Admin Acetaminophen 650 mg 06/08/18 14:08 06/14/18 13:27 Tylenol PO 650 mg Q6H PRN Administration Fever/pain 1 through 5 Hydrocodone Bitart/Acetaminophen 1 tab 06/08/18 15:05 06/15/18 08:37 [place] 5/325 PO 1 tab Q6H PRN Administration PAIN 6-10;IF UNABLE TO TAKE PO Aspirin 325 mg 06/04/18 09:00 06/15/18 08:38 Aspirin PO 325 mg DAILY TYLER Administration Cyanocobalamin 1,000 mcg 06/08/18 09:00 06/15/18 08:50 Vitamin B12 PO Not Given DAILY TYLER Enoxaparin Sodium 40 mg 06/14/18 17:00 06/15/18 08:37 Lovenox Inj SQ 40 mg DAILY TYLER Administration Hydralazine HCl 10 mg 06/09/18 20:30 06/12/18 03:17 Apresoline Inj IV.PUSH 10 mg Q4H PRN Administration SBP >160 Hydromorphone HCl 0.2 mg 06/08/18 15:06 06/15/18 01:51 Dilaudid Pf Inj IV.PUSH 0.2 mg Q4H PRN Administration BREAKTHROUGH PAIN Sodium Chloride 500 mls @ 30 mls/hr 06/08/18 01:00 06/08/18 05:11 Ns Inj IV.SIG Not Given .Q10H TYLER Lorazepam 0.5 mg 06/04/18 09:00 06/15/18 08:37 Ativan PO 0.5 mg DAILY TYLER Administration Metoprolol Succinate 12.5 mg 06/10/18 09:00 06/15/18 08:38 Toprol Xl PO 12.5 mg DAILY TYLER Administration Multivitamins 1 tab 06/05/18 09:00 06/15/18 08:37 Theragran PO 1 tab DAILY TYLER Administration Ondansetron HCl 4 mg 06/03/18 20:51 06/13/18 14:43 Zofran Inj IV.PUSH 4 mg Q6H PRN Administration Nausea And Vomiting Pravastatin Sodium 80 mg 06/04/18 18:00 06/15/18 17:10 Pravachol PO 80 mg QPM TYLER Administration Sodium Chloride 6 drops 06/04/18 21:53 06/04/18 22:33 Baby [place] Saline 0.65% Arias Drop/[place] EACH NARE 6 drops UNSCH PRN Administration dry nose Objective Remarks: GENERAL: Well-nourished, well-developed patient. SKIN: Warm and dry. HEAD: Normocephalic. EYES: No scleral icterus. No injection or drainage. NECK: Supple, trachea midline. No JVD or lymphadenopathy. Right neck surgical site well-healed. LYMPHATIC: No adenopathy. CARDIOVASCULAR: Regular rate and rhythm without murmurs. RESPIRATORY: Breath sounds equal bilaterally. No accessory muscle use. GASTROINTESTINAL: Abdomen soft, non-tender, nondistended. EXTREMITIES: No cyanosis, or edema. MUSCULOSKELETAL: Adequate muscle tone. NEUROLOGICAL: No obvious focal deficit. Awake, alert, and oriented x3. PSYCHIATRIC: Appropriate mood and affect; insight and judgment normal. Assessment/Plan - Plan 73-year-old female with metastatic breast cancer with bony involvement on letrozole and Verzenio admitted after fall. 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 Workup showed more than 90% stenosis of right internal carotid artery and more than 70% stenosis of left internal carotid artery. 1. Patient status post right carotid endarterectomy. She tolerated procedure well. She has no new neurologic symptoms. Her dizziness has resolved since the procedure. 2. Patient restarted letrozole. We will continue to hold Verzenio at this time. 3. Continue supportive care. 4. Patient is awaiting rehab placement. I have discussed with nursing staff and they are waiting for insurance approval for rehab placement. There was some question that patient is taking chemotherapy drug and rehab is reluctant to accept her. I have clarified with the nursing staff again that patient is not on chemotherapy and the letrozole that she is taking is a hormonal therapy. 5. Follow-up oncology clinic after discharge.
[2018-06-16] MEDS: Enoxaparin Inj 40 MG/0.4 ML Syringe SQ SCH (08:48)
[2018-06-16] MEDS: Aspirin 325 MG Tablet PO SCH (08:49)
[2018-06-16] MEDS: LORazepam 0.5 MG Tablet PO SCH (08:49)
[2018-06-16 10:02] VITALS: RESP 18
[2018-06-16 10:54] VITALS: BP 143/62; TEMP 98.2; O2SAT 100
[2018-06-16 13:48] VITALS: PULSE 64
--- NOTE | 2018-06-16 13:58 | P.PNIM ---
Subjective Interval history: Reports she has left lower leg weakness, no pain, wants to go to rehab. Is working with physical therapy Physical Exam Vital signs: Last Vital Signs Temp 98.2 F 06/16/18 10:53 Pulse 64 06/16/18 13:00 Resp 18 06/16/18 10:53 BP 143/62 H 06/16/18 10:53 Pulse Ox 100 06/16/18 10:53 Intake & Output 06/14/18 06/15/18 06/16/18 06/17/18 06:59 06:59 06:59 06:59 Intake Total 1480 / 1480 1640 / 1640 1200 / 1200 Output Total 1075 / 1075 1500 / 1500 1025 / 1025 Balance 405 / 405 140 / 140 175 / 175 Weight 74.5 kg 74.5 kg 74.5 kg Narrative: Well-nourished well-developed white female lying in bed in no acute distress Cardiovascular regular rate and rhythm Lungs relatively clear to auscultation Abdomen soft Neurological exam alert and oriented to person place and knows the year moves bilateral upper extremities, slight decrease decrease in strength in the left lower leg with 4.5 out of 5 motor strength, right lower extremity 5 out of 5. Sensation seems to be intact. Urinary Catheter Management Indwelling Urethral Catheter: Cath placed during this visit: yes, but has since been removed by the nurse Urethral indwelling: Yes Insertion date: 06/08/18 Insertion time: 08:05 Removal date: 06/09/18 Removal time: 14:00 Results Labs CBC & Chem 7: 06/09/18 04:28 06/09/18 04:28 Procedures Procedures: right carotid artery endarterectomy with pericardial patch angioplasty 06/08 Assessment and Plan Plan 73-year-old white female presented to the emergency room with recurrent falls for the past 3 weeks found to have Right anterior cerebral artery infarct, history of complete occlusion of the right internal carotid artery and 50-69% on the left carotid MRI with findings of nonhemorrhagic acute Dejon acute infarct in the right parietal lobe Continue with physical therapy Appreciate neurology's recommendations On aspirin and statin Continue physical therapy and occupational therapy Symptomatic right internal carotid endarterectomy with stenosis status post right carotid artery endarterectomy with pericardial patch angioplasty 06/08 - continue aspirin Hypertension, resume beta-gavi History of metastatic breast cancerper oncology she is currently not on active chemotherapy, she is on Letrozole, hormone therapy, at home was advised to hold this while she is inpatient and at rehab per oncologist Dr. Phillips. DVT prophylaxisLovenox. Case management assisting in intermediate facility placement, clarification to stop letrozole made today. Progress Note: Quality VTE Deep Vein Thrombosis/Pulmonary Embolism Present on Admission: No
== END 2018-06-16 16:23 | DRG 38 ==
LOC: NEPC 15:21 → NEDA 15:21 → HCIN 21:19 → HCVI 06-08 13:53 → HCPC 06-09 19:00
PROVIDERS: ADMIT Family Medicine; ATTEND Family Medicine
CPT/HCPCS: 70450; 70496; 70498; 70544; 70553; 72156; 72157; 72158; 73502; 76937; 77387; 77412; 80048; 80053; 80061; 82550; 82607; 82948; 82962; 83036; 83735; 84100; 84439; 84443; 84484; 85025; 85610; 85651; 85652; 86850; 86900; 86901; 90761; 90774; 90784; 92610; 93005; 93225; 93306; 93880; 94150; 96361; 96374; 97110; 97162; 97167; 97530; 97535; 99285; A9585; C8952; G0195; J0131; J0360; J0690; J1170; J1644; J1650; J2060; J2250; J2405; J2720; J3010; J3420; J3480; J7030; J7120; Q9967